=== PATIENT | male | born 1935 | race Caucasian/White ===

== ENCOUNTER 2020-03-30 14:46 | Outpatient (CLI) | payer MEDICARE, SELFPAY ==
--- NOTE | ~2020-03-30 | CT_ITS ---
EXAMINATION: CT brain wo con DATE: 03/30/2020 15:36 INDICATION: Headache. TECHNIQUE: Computed tomography (CT) of the head was performed without intravenous contrast. The dose- length product was 605.33 mGy-cm. The mA was adjusted according to patient size. Iterative reconstruc tion technique was employed. COMPARISON: CT dated 05/26/2018 FINDINGS: Generalized atrophy. There are scattered moderate periventricular and subcortical white mat ter changes, most likely related to small vessel ischemic disease (microangiopathy). No ventriculomeg alis or midline shift. Paranasal sinuses and mastoids are pneumatized. No depressed skull fractures. N o acute intracranial hemorrhage, infarction, mass or mass effect. Paranasal sinuses and mastoids are pneumatized. IMPRESSION: 1. No acute intracranial abnormality. 2: Chronic age-related findings. Reviewed, dictated and finalized at location A.
--- NOTE | ~2020-03-30 | XR_ITS ---
EXAMINATION: XR_CERV2-3V_CR DATE: 03/30/2020 15:27 INDICATION: Neck pain. TECHNIQUE: 5 views of cervical spine were obtained. COMPARISON: Cervical spine MRI 06/03/2010 FINDINGS: There is kyphosis of upper cervical spine. There is 2 mm retrolisthesis of C3 on C4. There are changes of anterior fusion procedure from C4 to C6 with healed interbody bone graft. There is sev erely decreased disc height at C3-C4 and C6-C7. There is multilevel facet joint osteoarthritis, sever e on the right at C2-C3 and bilaterally at C6-C7 and C7-T1. There is mild central canal stenosis at C 3-C4 and C6-C7. No prevertebral soft tissue swelling. IMPRESSION: 1. Severe cervical spondylosis. 2. Anterior fusion procedure from C4 to C6. Reviewed, dictated and finalized at location A.
== END 2020-03-30 14:47 | disposition home or self-care (01) ==
PROVIDERS: PCP Internal Medicine; Visit Provider Nurse Practitioner
DX: R51 Headache (principal); M54.2 Cervicalgia; M47.812 Spondylosis without myelopathy or radiculopathy, cervical region; Z98.1 Arthrodesis status
CPT/HCPCS: 70450; 72040

== ENCOUNTER 2020-06-27 15:06 | Outpatient (CLI) | payer MEDICARE, SELFPAY ==
--- NOTE | ~2020-06-27 | XR_ITS ---
XR chest 2V DATE: 06/27/2020 15:36 INDICATION: Chest pain TECHNIQUE: PA and lateral views COMPARISON: 05/26/2018 AP chest FINDINGS: There is bibasilar atelectasis. There is mild elevation of the right leaf of the diaphragm . Normal heart size. Aortic arch calcification and mild unfolding. No pulmonary vascular congestion or pleural effusion. Lumbar spine posterior fusion hardware. IMPRESSION: Bibasilar atelectasis Reviewed, dictated and finalized at location A. IMPRESSION: Bibasilar atelectasis
== END 2020-06-27 15:07 | disposition home or self-care (01) ==
PROVIDERS: PCP Internal Medicine; Visit Provider Nurse Practitioner
DX: R07.81 Pleurodynia (principal); R91.8 Other nonspecific abnormal finding of lung field
CPT/HCPCS: 71046

== ENCOUNTER 2020-11-06 17:03 | Outpatient (CLI) | payer MEDICARE, SELFPAY | END 2020-11-06 17:04 | disposition home or self-care (01) | LOC: ANHCOVIDVC 17:03 | PROVIDERS: PCP Internal Medicine | DX: Z23 Encounter for immunization (principal) | CPT/HCPCS: 0001A; 91300 ==

== ENCOUNTER 2020-11-27 17:01 | Outpatient (CLI) | payer MEDICARE, SELFPAY | END 2020-11-27 17:02 | disposition home or self-care (01) | LOC: ANHCOVIDVC 17:01 | PROVIDERS: PCP Internal Medicine | DX: Z23 Encounter for immunization (principal) | CPT/HCPCS: 0002A; 91300 ==

== ENCOUNTER 2021-09-03 13:30 | Outpatient (RCR) | payer MEDICARE, SELFPAY ==
--- NOTE | 2021-08-07 15:06 | PTOPEVAL ---
Thank you for referring Anival Jennings to [facility].? The patient is scheduled to be seen for therapy? 2 x/week for 8 weeks. Please review, sign, date and return this plan of care CASSY. I agree with and certify that the following plan of care is medically necessary. Referring Physician Date Attending Provider: Nay Ynag NP Diagnosis other musculoskeletal symptoms Onset chronic Additional Evaluation Detail Receives injections left knee due to pain and OA Tiffany brace right ankle due to ankle fusion Subjective Information He has a 3 wheeled rollator. Query Text:As Reported By Patient/ He reports of limitations with Family mobility due to knee and ankle pain. He spends of his day reading or watching TV. He has limited his walking due to pain and desire to walk. He reports limitations with transfers from all surfaces. He has had falls and near falls. He has had at least 1 fall a month. He is unable to get off the ground without assistance. Prior Level of Function Home Setting Home Type House Environmental Barriers Railing, Ascend Left,Stairs, Threshold Pain Assessment Right Ankle(s) Reported Pain Level 10 Pain Description Aching,Soreness Left Knee(s) Reported Pain Level 8 Pain Description Aching,Sharp Pain Frequency Chronic Lower Extremity Muscle Strength Testing General Lower Extremity Strength Gross Lower Extremity Strength left hip flex: 3/5, knee flex/ ext: 3/5 right hip flex: 4/5, knee flex /ext: 4/5 tested in seated Upper Extremity Muscle Strength Testing General Upper Extremity Strength Gross Upper Extremity Strength Comments left shoulder flex/abd: 3/5, rotation: 4/5 right shoulder flex/abd and rotation: 4-/5 yuni elbow and flex: 4/5 Posture Posture Standing Position Head/C-Spine Posture Forward Head Thoracic Spine Posture Increased Kyphosis Lumbar Spine Posture Flexed Shoulder Posture (L) Rounded,(R) Rounded Weight Distribution Weight Shifted Right,Decreased Wt.Bear on (L) Knee Posture (L)
--- NOTE | 2021-08-26 13:27 | PCPTNOTE ---
Patient called & cancelled scheduled appointment this date due to being exposed to covid.
--- NOTE | 2021-08-28 15:05 | PCPTNOTE ---
Patient called & cancelled scheduled appointment this date due to not feeling well.
--- NOTE | 2021-09-05 12:00 | PCPTNOTE ---
Patient called & cancelled scheduled appointment this date due to having a cough.
--- NOTE | 2021-09-17 13:40 | PCPTNOTE ---
Patient did not show up for scheduled appointment this date. Called pt and spoke with who states pt was DC from the hospital with home health services. Will DC chart at this time.
--- NOTE | 2021-09-17 13:41 | PCPTNOTE ---
Admitting Provider: Attending Provider: Nay Yang NP Patient:Anival Jennings Date of :1935 Discharge Summary Patient has not returned for any further treatments since 09/03/2021 due to recent hospital stay with discharge home with home health services. Therefore he will be discharged at this time. Patient?s initial visit was on 08/07/2021 10:30 and he had a total of 4 visits. The goals have been not met due to limited visits received. Thank you for referring this patient to [facility]. Please review, sign, date and return this discharge summary CASSY. I have been updated about the patient's current status and I agree with discharge from the above service at this time. Referring Physician Date
== END 2021-09-18 13:28 | disposition home health service (06) ==
LOC: ANHPT 13:30
PROVIDERS: PCP Internal Medicine; Visit Provider Nurse Practitioner
DX: R29.898 Other symptoms and signs involving the musculoskeletal system (principal)
CPT/HCPCS: 97110; 97112; 97162; 97530

== ENCOUNTER 2021-09-08 17:38 | Inpatient (IN) | payer MEDICARE, SELFPAY ==
[2021-09-08] VITALS (29 sets, daily range): BP systolic 109–171; BP diastolic 64–110; PULSE 60–99; RESP 15–23; TEMP 36.2; O2SAT 96
--- NOTE | ~2021-09-08 | CT_ITS ---
EXAMINATION: CT brain wo con INDICATION: Altered mental status COMPARISON: 03/30/2020 TECHNIQUE: Standard unenhanced head CT. The dose-length product (DLP) was 605.33 mGy-cm. The mA was a djusted according to patient size. Iterative reconstruction technique was employed. FINDINGS: There is no acute intraparenchymal hemorrhage. No evidence of mass lesion. No evidence of a cute infarction. There is moderate periventricular and subcortical hypodensity probably related to sm all vessel ischemic disease. There is moderate prominence of the sulci and ventricles related to cere bral atrophy. Intracranial calcified cerebral atherosclerosis is noted. There are no extra-axial zac ections. There is no mass effect or midline shift. Changes in the globes are likely from ocular lens surgery. There is mild mucosal thickening of the paranasal sinuses. IMPRESSION: 1. No acute intracranial abnormality. 2. Age related findings. Reviewed, dictated and finalized at location F. [employer]
--- NOTE | ~2021-09-08 | XR_ITS ---
EXAMINATION: XR chest 1V portable INDICATION: Nonproductive cough TECHNIQUE: Portable AP chest at 0828 hours COMPARISON: 06/27/2020 FINDINGS: There are minimal patchy opacities throughout the lungs. No pleural effusion or pneumothora x is identified. The cardiomediastinal silhouette is normal. There is moderate osteoarthritis of the shoulders. Chronic elevation of the right hemidiaphragm is noted. IMPRESSION: 1. Patchy bilateral airspace opacities, consistent with atelectasis versus pneumonia. Reviewed, dictated and finalized at location F. 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 Patchy bilateral airspace opacities, consistent with atelectasis versus pneu monia.
--- NOTE | 2021-09-08 19:37 | ECG_ITS ---
Measurements Intervals [place] Rate: 63 P: 29 WV: 175 QRS: 5 QRSD: 90 T: 22 QT: 405 QTc: 415 Interpretive Statements SINUS RHYTHM BASELINE ARTIFACT- I, II, III, AVR, AVL, AVF, V3 NORMAL ECG Electronically Signed On 09-08-2021 20:01:49 RN FIRST ASSISTANT by Artem Castillo D.O.
[2021-09-08 20:11] LABS: Basophils Absolute Auto 0.1 K/mm3 (0.0-0.1); Basophils Percent Auto 0.5 % (0.2-1.2); Eosinophils Absolute Auto 0.2 K/mm3 (0-0.3); Hematocrit 46.5 % (42.0-52.0); Hemoglobin 15.2 g/dL (14.0-18.0); Immature Granulocyte Absolute 0.06 K/mm3 (0.00-0.031); Immature Granulocyte Percent A 0.5 % (0-0.5); Lymphocytes Percent Auto 18.1 % (18.3-44.2); Mean Corpuscular HGB Conc 32.7 g/dl (32-36); Mean Corpuscular Volume 88.7 fl (80-100); Mean Platelet Volume 10.3 fl (7.4-10.4); Monocytes Percent Auto 8.8 % (2.6-8.5); Neutrophils Absolute Auto 7.8 K/mm3 (1.3-6.7); Neutrophils Percent Auto 70.1 % (45.5-73.1); Platelet Count Result 163 k/mm3 (150-375); Red Blood Count 5.24 M/mm3 (4.6-6.20); Red Cell Distribution Width 13.4 % (11.5-14.5); White Blood Count 11.1 K/mm3 (4.5-10.0)
[2021-09-08 20:21] LABS: INR 1.1; Partial Thromboplastin Time 40.3 SECONDS (22.3-36.8); Prothrombin Time 14.5 Seconds (11.1-14.7)
[2021-09-08 20:22] LABS: Alanine Aminotransferase 32 U/L (4-50); Albumin Level 4.9 g/dL (3.5-5.1); Alkaline Phosphatase 74 U/L (38-126); Anion Gap 13 mmol/L (8-16); Aspartate Amino Transferase 30 U/L (17-59); Bilirubin,Total 0.7 mg/dL (0.2-1.3); Blood Urea Nitrogen 20 mg/dL (9-20); Calcium 9.2 mg/dL (8.4-10.2); Carbon Dioxide 24 mmol/L (22-30); Chloride 98 mmol/L (98-107); Estimated CRCL calculation 56 ml/min; Estimated Glomerular Filt Rate > 60; Glucose 122 mg/dL (65-110); Potassium 4.7 mmol/L (3.4-5.0); Sodium 135 mmol/L (137-145)
[2021-09-08] MEDS: SODIUM CHLORIDE 0.9% IV 1,000 ML 999 ML IV CONT (20:41)
[2021-09-08 21:05] LABS: Magnesium 2.5 mg/dL (1.6-2.3)
[2021-09-08 21:05] LABS: Lactic Acid Reflex 0.9 mmol/L (0.7-2.1)
[2021-09-08 21:18] LABS: Troponin I < 0.012 ng/mL (0.000-0.034)
[2021-09-08 21:36] LABS: SARS-CoV-2 RNA PCR Negative
--- NOTE | 2021-09-08 22:11 | ED.GENADULT ---
HPI - General Adult General Chief complaint: Altered Mental Status Stated complaint: AMS x3 days Time Seen by Provider: 09/08/21 19:57 History of Present Illness HPI narrative: Patient 85-year-old gentleman who presents the emergency department with chief complaint of generalized malaise confusion cough. Per the family they have noticed over the last several days he has been coughing has been less responsive and sleeping more. The patient has also been slightly confused at times usually this is after he just wakes up where he does not quite remember what time it is. The family reports currently he is alert and oriented just very slow to respond at times. The patient's family reports that he normally ambulates using a cane/walker and has been able to walk around at home. Related Data Home Medications Medication Instructions Recorded Confirmed acetaminophen 500 mg tablet 500 mg PO BID tablet 09/29/19 08/20/21 albuterol sulfate 90 mcg/actuation 2 puff INHALATION Q4-6H PRN gm 09/29/19 08/20/21 aerosol inhaler ascorbate calcium (vitamin C) 500 500 mg PO DAILY 09/29/19 08/20/21 mg tablet budesonide-formoterol HFA 160 2 puff INHALATION Q12H 09/29/19 08/20/21 mcg-4.5 mcg/actuation aerosol inhaler cholecalciferol (vitamin D3) 25 3,000 unit PO DAILY cap 09/29/19 08/20/21 mcg (1,000 unit) capsule clopidogrel 75 mg tablet 75 mg PO DAILY 09/29/19 08/20/21 mecobalamin (vitamin B12) 1,000 1,000 mcg SUBLINGUAL DAILY 09/29/19 08/20/21 mcg disintegrating tablet,sublingual metoprolol succinate 25 mg 25 mg PO DAILY 09/29/19 08/20/21 tablet,extended release 24 hr multivitamin 1 tablet PO DAILY 09/29/19 08/20/21 nitroglycerin 0.4 mg sublingual 0.4 mg SUBLINGUAL Q5M PRN 09/29/19 08/20/21 tablet omega-3 acid ethyl esters 1 gram 2 cap PO BID cap 09/29/19 08/20/21 capsule rosuvastatin 40 mg tablet 40 mg PO DAILY 09/29/19 08/20/21 tiotropium bromide 18 mcg capsule 1 cap INHALATION DAILY 09/29/19 08/20/21 with inhalation device vit C 250 mg-vit E 90 mg-zinc 40 1 tablet PO BID 09/29/19 08/20/21 mg-copper 1 yw-ezxssx-zpanro capsule ipratropium 0.5 mg-albuterol 3 mg 3 ml INHALATION .QD PRN ml 07/09/21 08/20/21 (2.5 mg base)/3 mL nebulization soln Allergies Allergy/AdvReac Type Severity Reaction Status Date / Time pneumococcal vaccine Allergy Unknown Hypersensit Verified 08/20/21 14:51 ivity Sulfa (Sulfonamide Allergy Unknown Unknown Verified 08/20/21 14:51 Antibiotics) Review of Systems Review of Systems: A 10 system review of systems was completed on the patient and is negative except for what is stated in the HPI. Nursing and ancillary documentation was reviewed. [facility] Past Medical History Medical History Anemia, unspecified COPD (chronic obstructive pulmonary disease) Deficient knowledge of leg surgery 2 stents in lt leg HLD (hyperlipidemia) HTN (hypertension) Hypogonadism in male Left knee DJD Pain in left knee Primary osteoarthritis of left knee Primary osteoarthritis, right ankle and foot Prostate cancer Right knee DJD Weakness of left lower extremity Surgical History Surgical History H/O heart artery stent H/O prostatectomy History of back surgery History of cystoscopy History of neck surgery Status post implantation of artificial urinary sphincter removed, washout and urethral repair Family History Family History Father Cerebrovascular accident Heart attack Alcoholism Hypertension Depression Heart disease Mother Aneurysm Other Family history of arthritis Social History Social History Social History: caffeine-coffee daily Smoking status: Never smoker Smoking end date: 08/31/02 Alcohol intake: ne
--- NOTE | 2021-09-08 22:36 | PM.IMHP ---
H&P: HPI History of Present Illness Date/Time: 09/08/21 22:36 Chief Complaint: Fatigue Narrative: This is an 85-year-old male with past medical history significant for COPD she should emphysema coronary artery disease, dyslipidemia. Patient presented to the emergency room due to generalized malaise, body aches and pains, dry persistent cough, shortness of breath, fevers, chills, rigors, chest congestion, poor appetite, according to who is at bedside patient has been staying most of the day in bed, denies any nausea ,vomiting, abdominal pain, diarrhea. Preliminary workup was significant for chest x-ray with lung infiltrates, WBC 11,000, patient tested negative for COVID-19 and his a fully vaccinated as well. Patient has been admitted for further evaluation, management and treatment. Review of Systems Review of Systems: Generalized malaise, chest congestion, persistent dry cough, shortness of breath, poor appetite, fatigue, chills, fevers, rigors. Constitutional: Constitutional: Reports chills, Reports fatigue, Reports fever(s), Reports lethargy, Reports malaise, Denies night sweats and Reports poor appetite Eyes: Eyes: Denies change in vision ENT: Denies dysphagia, Denies vertigo, Denies dizziness, Denies nasal congestion, Denies nasal discharge and Denies odynophagia Cardiovascular: Cardiovascular: Denies chest pain, Denies irregular heart rhythm, Denies lightheadedness, Denies radiating jaw, neck or arm pain, Denies palpitations, Denies dyspnea on exertion and Denies paroxysmal nocturnal dyspnea Respiratory: Respiratory: Reports chest congestion, Reports cough, Denies excessive phlegm production, Reports dyspnea and Denies wheezing Gastrointestinal: Gastrointestinal: Denies abdominal pain, Denies dyspepsia, Denies heartburn and Denies diarrhea Genitourinary: Genitourinary: Denies dysuria and Denies flank pain Musculoskeletal: Musculoskeletal: Reports myalgias Integumentary/Breasts: Skin/Breast: Denies rash Neurologic: Denies focal weakness and Denies Sensory deficit (Neuro) Psychiatric: Psychiatric: Reports no additional psychiatric complaints and Reports as per HPI Endocrine: Endocrine: Denies cold intolerance, Denies heat intolerance, Denies polyphagia, Denies polydipsia and Denies palpitations Hematologic/Lymphatic: Hematologic/Lymphatic: Reports no additional hematologic/lymphatic complaints and Reports as per HPI Allergic/Immunologic: Allergic/Immunologic: Reports no additional allergic/immunologic complaints and Reports as per HPI PMFSH Past Medical History Medical History (Updated 09/09/21 @ 04:28 by Blank Villareal MD) Anemia, unspecified COPD (chronic obstructive pulmonary disease) Deficient knowledge of leg surgery 2 stents in lt leg HLD (hyperlipidemia) HTN (hypertension) Hypogonadism in male Left knee DJD Pain in left knee Primary osteoarthritis of left knee Primary osteoarthritis, right ankle and foot Prostate cancer Right knee DJD Weakness of left lower extremity Surgical History Surgical History H/O heart artery stent H/O prostatectomy History of back surgery History of cystoscopy History of neck surgery Status post implantation of artificial urinary sphincter removed, washout and urethral repair Family History Family History Father Cerebrovascular accident Heart attack Alcoholism Hypertension Depression Heart disease Mother Aneurysm Other Family history of arthritis Social History Social History Social History: caffeine-coffee daily Smoking status: Never smoker Alcohol intake: never Substance use: never Substance use type: does not use Spiritual care concerns: No Meds Home Medications and Allergies Home Medications Medication Instructions Recorded Confirmed Ty
--- NOTE | 2021-09-08 23:16 | PC.NURSE ---
Patient has condom catheter in place, unsuccessful with straight cath. No urine specimen at this time.
[2021-09-09] VITALS (15 sets, daily range): BP systolic 111–148; BP diastolic 66–83; PULSE 61–74; RESP 16–18; TEMP 36.4–37.1; O2SAT 93–99; BMI 27.6
--- NOTE | 2021-09-09 00:34 | ADMGEN ---
This patient, Anival Jennings, was admitted to Medical Room 342-01. Patient/family oriented to hospital policies and general routines including ID bracelet, bed and alarms, visiting hours, pain management, procedures, bathroom and other care routines, personal items, smoking policy, room service/diet, and visiting hours. Information on how to activate the Rapid Response Team has been discussed. Patient/Family are encouraged to report perceived risks to care and to ask questions if they do not understand what they are told or what they should do.
[2021-09-09] MEDS: SODIUM CHLORIDE 0.9% IV 1,000 ML 125 ML IV CONT ×2 (00:46→08:51)
[2021-09-09 03:50] LABS: Troponin I 0.013 ng/mL (0.000-0.034)
[2021-09-09] MEDS: FLUTICASONE/SALMETEROL 115-21 MCG INHALER 1 PUFF 2 PUFF INHALATION ×2 (08:20→20:54)
[2021-09-09] MEDS: IPRATROPIUM BR 0.02% INH SOLN 0.5 MG/2.5 ML VIAL INHALATION ×3 (08:20→20:53)
[2021-09-09] MEDS: ALBUTEROL SULFATE NEB 2.5 MG/0.5 ML INH 5 MG INHALATION ×3 (08:20→20:53)
[2021-09-09] MEDS: CLOPIDOGREL BISULFATE 75 MG TABLET PO (08:53)
[2021-09-09] MEDS: ASCORBIC ACID 500 MG TABLET PO (08:54)
[2021-09-09] MEDS: CYANOCOBALAMIN 1,000 MCG TABLET 1000 MCG PO (08:54)
[2021-09-09] MEDS: OPTI-GEN TAB 1 TABLET PO ×2 (08:54→17:23)
[2021-09-09] MEDS: CHOLECALCIFEROL 1,000 UNITS TABLET 3000 UNITS PO (08:54)
[2021-09-09] MEDS: OMEGA 3 POLYUNSAT FATTY ACIDS 1 GM CAP PO ×2 (08:54→17:24)
[2021-09-09] MEDS: MULTIVITAMINS THERAPEUTIC TAB (*BKC) 1 TABLET PO (08:54)
[2021-09-09] MEDS: ACETAMINOPHEN 500 MG TABLET PO ×2 (08:54→20:02)
[2021-09-09] MEDS: SERTRALINE HCL 50 MG TABLET 100 MG PO (08:54)
[2021-09-09] MEDS: ROSUVASTATIN 10 MG TABLET 40 MG PO (08:55)
[2021-09-09] MEDS: HEPARIN SODIUM 5,000 UNITS/ML VIAL 5000 UNITS SUB-Q ×2 (08:55→20:01)
[2021-09-09] MEDS: UMECLIDINIUM BROMIDE 62.5 MCG ELLIPTA 1 PUFF INHALATION (11:03)
[2021-09-09] MEDS: METOPROLOL SUCCINATE EXT REL 25 MG TABCR PO (11:04)
--- NOTE | 2021-09-09 12:47 | PM.IMPN ---
Progress Note: A&P Assessment and Plan (1) Pneumonia: Qualifiers: Laterality: unspecified laterality Lung location: unspecified part of lung Pneumonia type: due to unspecified organism Qualified Code(s): J18.9 - Pneumonia, unspecified organism Code(s): J18.9 - Pneumonia, unspecified organism Status: Acute Assessment and Plan: Patient presented for confusion. States he has had a cough for the last 1 week. Chest x-ray concerning for patchy bilateral airspace opacities, consistent with atelectasis versus pneumonia. Slight leukocytosis at 11,000. Otherwise patient is resting comfortably on room air. Was admitted for confusion and pneumonia treatment with IV antibiotics. COVID PCR was negative. Currently patient is doing well, A&O x4. Continue IV antibiotics with Rocephin and azithromycin #1. Blood cultures have been sent and pending Continue with DuoNebs ordered by ER Will recheck labs in the morning and could potentially be discharged if he is still doing well and labs improving. Continue monitoring. (2) Cough: Code(s): R05 - Cough Status: Acute Assessment and Plan: See above. (3) Generalized weakness: Code(s): R53.1 - Weakness Status: Acute Assessment and Plan: Most likely due to pneumonia. PT/OT ordered. (4) COPD (chronic obstructive pulmonary disease): Code(s): J44.9 - Chronic obstructive pulmonary disease, unspecified Status: Acute Assessment and Plan: Lungs are clear with no wheezing. Continue breathing treatment at home meds. Time Spent With Patient Time with patient: 25 - 35 minutes Subjective Date/time seen: 09/09/21 12:47 Interval history: Date of service 09/09/2021: Patient states he is feeling better today. States he has had a cough for the last 1 week, associated chest congestion and denies any productive cough. Denies any shortness of breath at rest or with exertion. Patient has chronic urinary incontinence after after having any urology procedure. Denies any dark urine, odor to urine, or dysuria. Denies fevers, chills, chest pain, nausea, vomiting, abdominal pain, leg swelling, calf pain, or any other symptoms at this time. Review of Systems Review of Systems: All systems reviewed & are unremarkable except as noted in HPI and below Exam Narrative: General: 85-year-old man sitting up in bed watching TV. Appears comfortable. In no acute distress. Skin: No jaundice or cyanosis. Good skin turgor. Neck: Full range of motion. Supple. Respiratory: Lungs are clear to auscultation bilaterally. No wheezing, rales or rhonchi auscultated. No bony chest wall tenderness. Cardiovascular: The heart has a regular rate and rhythm without murmur. Lower extremities: No lower extremity edema. Distal pulses are easily palpated. No calf tenderness to palpation. Gastrointestinal: The abdomen is soft, nontender and nondistended with active bowel sounds. Psychiatric: Lucid and oriented. Memory intact. Neurologic:A&O x4. No focal deficits. Speech is clear. No facial drooping. Objective Data Vital Signs Vital Signs: Vital Signs - 24 hr 09/08/21 17:39 09/08/21 19:40 09/08/21 19:41 Temperature 97.2 F L Pulse Rate 76 71 63 Respiratory Rate 20 15 20 Blood Pressure 120/64 150/76 H Pulse Oximetry 96 09/08/21 19:45 09/08/21 19:46 09/08/21 20:00 Temperature Pulse Rate 64 63 61 Respiratory Rate 19 18 20 Blood Pressure 141/87 H Pulse Oximetry 09/08/21 20:01 09/08/21 20:04 09/08/21 20:15 Temperature Pulse Rate 62 63 Respiratory Rate 17 16 Blood Pressure 134/73 Pulse Oximetry 96 09/08/21 20:16 09/08/21 20:30 09/08/21 20:31 Temperature Pulse Rate 63 64 62 Respiratory Rate 19 16 18
[2021-09-10] VITALS (12 sets, daily range): BP systolic 110–154; BP diastolic 58–72; PULSE 64–96; RESP 16–19; TEMP 36.5–37.2; O2SAT 94–99
[2021-09-10 05:58] LABS: Hemoglobin 13.7 g/dL (14.0-18.0); Mean Corpuscular HGB Conc 32.6 g/dl (32-36); Mean Corpuscular Hemoglobin 28.7 pg (26-34); Mean Corpuscular Volume 88.1 fl (80-100); Mean Platelet Volume 10.1 fl (7.4-10.4); Platelet Count Result 147 k/mm3 (150-375); Red Blood Count 4.77 M/mm3 (4.6-6.20); Red Cell Distribution Width 13.2 % (11.5-14.5); White Blood Count 6.4 K/mm3 (4.5-10.0)
[2021-09-10 06:11] LABS: Anion Gap 12 mmol/L (8-16); Blood Urea Nitrogen 14 mg/dL (9-20); Calcium 9.3 mg/dL (8.4-10.2); Carbon Dioxide 26 mmol/L (22-30); Chloride 99 mmol/L (98-107); Estimated CRCL calculation 56 ml/min; Estimated Glomerular Filt Rate > 60; Glucose 139 mg/dL (65-110); Potassium 4.5 mmol/L (3.4-5.0); Sodium 137 mmol/L (137-145)
[2021-09-10] MEDS: ALBUTEROL SULFATE NEB 2.5 MG/0.5 ML INH 5 MG INHALATION ×3 (07:52→20:09)
[2021-09-10] MEDS: IPRATROPIUM BR 0.02% INH SOLN 0.5 MG/2.5 ML VIAL INHALATION ×3 (07:55→20:09)
[2021-09-10] MEDS: FLUTICASONE/SALMETEROL 115-21 MCG INHALER 1 PUFF 2 PUFF INHALATION (07:56)
[2021-09-10] MEDS: UMECLIDINIUM BROMIDE 62.5 MCG ELLIPTA 1 PUFF INHALATION (07:56)
[2021-09-10] MEDS: CHOLECALCIFEROL 1,000 UNITS TABLET 3000 UNITS PO (08:38)
[2021-09-10] MEDS: ASCORBIC ACID 500 MG TABLET PO (08:38)
[2021-09-10] MEDS: OPTI-GEN TAB 1 TABLET PO ×2 (08:39→16:50)
[2021-09-10] MEDS: SERTRALINE HCL 50 MG TABLET 100 MG PO (08:39)
[2021-09-10] MEDS: CLOPIDOGREL BISULFATE 75 MG TABLET PO (08:39)
[2021-09-10] MEDS: MULTIVITAMINS THERAPEUTIC TAB (*BKC) 1 TABLET PO (08:39)
[2021-09-10] MEDS: ACETAMINOPHEN 500 MG TABLET PO ×2 (08:39→20:32)
[2021-09-10] MEDS: CYANOCOBALAMIN 1,000 MCG TABLET 1000 MCG PO (08:39)
[2021-09-10] MEDS: METOPROLOL SUCCINATE EXT REL 25 MG TABCR PO (08:39)
[2021-09-10] MEDS: OMEGA 3 POLYUNSAT FATTY ACIDS 1 GM CAP PO ×2 (08:39→16:50)
[2021-09-10] MEDS: HEPARIN SODIUM 5,000 UNITS/ML VIAL 5000 UNITS SUB-Q ×2 (08:40→20:32)
[2021-09-10] MEDS: ROSUVASTATIN 10 MG TABLET 40 MG PO (08:40)
--- NOTE | 2021-09-10 15:38 | PM.IMPN ---
Progress Note: A&P Assessment and Plan (1) Pneumonia: Qualifiers: Laterality: unspecified laterality Lung location: unspecified part of lung Pneumonia type: due to unspecified organism Qualified Code(s): J18.9 - Pneumonia, unspecified organism Code(s): J18.9 - Pneumonia, unspecified organism Status: Acute Assessment and Plan: Patient presented for confusion. States he has had a cough for the last 1 week. Chest x-ray concerning for patchy bilateral airspace opacities, consistent with atelectasis versus pneumonia. Slight leukocytosis at 11,000. Otherwise patient is resting comfortably on room air. Was admitted for confusion and pneumonia treatment with IV antibiotics. COVID PCR was negative. Currently patient is doing well, A&O x4. Continue with DuoNebs. Oxygen 97% on RA. Continue IV antibiotics with Rocephin and azithromycin #2. Blood cultures prelim report w/ gram positive cocci, final report pending. (2) Cough: Code(s): R05 - Cough Status: Acute Assessment and Plan: See above. (3) Generalized weakness: Code(s): R53.1 - Weakness Status: Acute Assessment and Plan: Most likely due to pneumonia. PT/OT ordered. (4) COPD (chronic obstructive pulmonary disease): Code(s): J44.9 - Chronic obstructive pulmonary disease, unspecified Status: Acute Assessment and Plan: Lungs are clear with no wheezing. Continue breathing treatment at home meds. Subjective Date/time seen: 09/10/21 15:38 Interval history: Patient states he is feeling better today. Still has dry cough. Denies confusion, is A/Ox3, however loses his train of thought frequently during conversation. Review of Systems Review of Systems: General: Denies fevers Eyes: Denies vision changes ENT: Denies nasal congestion or sore throat Respiratory: + cough, denies shortness of breath Cardiovascular: Denies chest pain or lower extremity edema Gastrointestinal: Denies abdominal pain, vomiting, or diarrhea Genitourinary: Denies dysuria Musculoskeletal: Denies back pain Neurological: Denies headache or motor weakness Integumentary: Denies rash Exam Narrative: General: No acute distress, non toxic appearing, elderly Eyes: PERRL, no scleral icterus HEENT: NCAT, external ears normal, MMM Respiratory: No respiratory distress, Lungs CTA bilaterally, no wheezing Cardiovascular: RRR, no murmur Abdominal: Soft, nontender, non distended, no rebound or guarding Musculoskeletal: Moves all 4 extremities, no edema Neurological: A/Ox3, speech normal, no facial asymmetry Skin: Warm, dry, no rashes, +pallor Psychiatric: Normal affect, normal mood Objective Data Vital Signs Vital Signs: Vital Signs - 24 hr 09/09/21 16:27 09/09/21 16:34 09/09/21 20:00 Temperature Pulse Rate 64 65 70 Respiratory Rate 18 18 18 Blood Pressure Pulse Oximetry 99 09/09/21 20:56 09/09/21 20:57 09/09/21 21:08 Temperature Pulse Rate 66 67 Respiratory Rate 16 16 Blood Pressure Pulse Oximetry 97 09/09/21 21:22 09/10/21 06:00 09/10/21 07:45 Temperature 98.7 F 99 F Pulse Rate 70 64 68 Respiratory Rate 18 16 16 Blood Pressure 148/70 H 154/64 H Pulse Oximetry 99 99 09/10/21 07:56 09/10/21 08:39 09/10/21 10:09 Temperature 98.4 F Pulse Rate 70 82 Respiratory Rate 16 Blood Pressure Pulse Oximetry 97 09/10/21 13:35 09/10/21 13:47 09/10/21 14:21 Temperature 97.8 F Pulse Rate 88 89 86 Respiratory Rate 16 16 16 Blood Pressure 115/72 Pulse Oximetry 94 Intake/Output Intake/Output: Intake & Output 01/04/2109/08/21 09/09/21 09/10/21 23:59 23:59 23:59 23:59 Intake Total 1050 2280 480 Balance 1050 2280 480 Meds/Results Medications:
[2021-09-11] VITALS (12 sets, daily range): BP systolic 112–145; BP diastolic 64–77; PULSE 74–96; RESP 16–18; TEMP 36.1–36.8; O2SAT 93–97
[2021-09-11] MEDS: ALBUTEROL SULFATE NEB 2.5 MG/0.5 ML INH 5 MG INHALATION ×4 (02:37→19:57)
[2021-09-11] MEDS: IPRATROPIUM BR 0.02% INH SOLN 0.5 MG/2.5 ML VIAL INHALATION ×4 (02:38→19:57)
[2021-09-11 07:39] LABS: Basophils Absolute Auto 0.1 K/mm3 (0.0-0.1); Basophils Percent Auto 0.7 % (0.2-1.2); Eosinophils Absolute Auto 0.3 K/mm3 (0-0.3); Eosinophils Percent Auto 4.5 % (0-4.4); Hemoglobin 13.4 g/dL (14.0-18.0); Immature Granulocyte Absolute 0.02 K/mm3 (0.00-0.031); Immature Granulocyte Percent A 0.3 % (0-0.5); Lymphocytes Absolute Auto 1.65 K/mm3 (0.9-3.2); Lymphocytes Percent Auto 23.9 % (18.3-44.2); Mean Corpuscular HGB Conc 32.7 g/dl (32-36); Mean Corpuscular Hemoglobin 28.5 pg (26-34); Mean Corpuscular Volume 87.2 fl (80-100); Mean Platelet Volume 10.4 fl (7.4-10.4); Monocytes Absolute Auto 0.5 K/mm3 (0.1-0.6); Monocytes Percent Auto 7.2 % (2.6-8.5); Neutrophils Absolute Auto 4.4 K/mm3 (1.3-6.7); Neutrophils Percent Auto 63.4 % (45.5-73.1); Platelet Count Result 166 k/mm3 (150-375); Red Cell Distribution Width 12.9 % (11.5-14.5); White Blood Count 6.9 K/mm3 (4.5-10.0)
[2021-09-11 08:00] LABS: Alanine Aminotransferase 27 U/L (4-50); Albumin Level 4.1 g/dL (3.5-5.1); Alkaline Phosphatase 73 U/L (38-126); Anion Gap 13 mmol/L (8-16); Aspartate Amino Transferase 30 U/L (17-59); Bilirubin,Total 0.4 mg/dL (0.2-1.3); Blood Urea Nitrogen 16 mg/dL (9-20); Calcium 8.9 mg/dL (8.4-10.2); Carbon Dioxide 25 mmol/L (22-30); Chloride 98 mmol/L (98-107); Estimated CRCL calculation 56 ml/min; Estimated Glomerular Filt Rate > 60; Glucose 138 mg/dL (65-110); Potassium 3.9 mmol/L (3.4-5.0); Sodium 136 mmol/L (137-145)
[2021-09-11] MEDS: UMECLIDINIUM BROMIDE 62.5 MCG ELLIPTA 1 PUFF INHALATION (08:00)
[2021-09-11] MEDS: FLUTICASONE/SALMETEROL 115-21 MCG INHALER 1 PUFF 2 PUFF INHALATION ×2 (08:00→19:57)
[2021-09-11] MEDS: SERTRALINE HCL 50 MG TABLET 100 MG PO (08:53)
[2021-09-11] MEDS: OPTI-GEN TAB 1 TABLET PO ×2 (08:53→17:18)
[2021-09-11] MEDS: CLOPIDOGREL BISULFATE 75 MG TABLET PO (08:53)
[2021-09-11] MEDS: CYANOCOBALAMIN 1,000 MCG TABLET 1000 MCG PO (08:53)
[2021-09-11] MEDS: CHOLECALCIFEROL 1,000 UNITS TABLET 3000 UNITS PO (08:53)
[2021-09-11] MEDS: OMEGA 3 POLYUNSAT FATTY ACIDS 1 GM CAP PO ×2 (08:53→17:18)
[2021-09-11] MEDS: ROSUVASTATIN 10 MG TABLET 40 MG PO (08:53)
[2021-09-11] MEDS: METOPROLOL SUCCINATE EXT REL 25 MG TABCR PO (08:54)
[2021-09-11] MEDS: MULTIVITAMINS THERAPEUTIC TAB (*BKC) 1 TABLET PO (08:54)
[2021-09-11] MEDS: ASCORBIC ACID 500 MG TABLET PO (08:54)
[2021-09-11] MEDS: HEPARIN SODIUM 5,000 UNITS/ML VIAL 5000 UNITS SUB-Q ×2 (08:54→20:33)
[2021-09-11] MEDS: ACETAMINOPHEN 500 MG TABLET PO ×2 (08:58→20:33)
--- NOTE | 2021-09-11 16:26 | PM.IMPN ---
Progress Note: A&P Assessment and Plan (1) Pneumonia: Qualifiers: Laterality: unspecified laterality Lung location: unspecified part of lung Pneumonia type: due to unspecified organism Qualified Code(s): J18.9 - Pneumonia, unspecified organism Code(s): J18.9 - Pneumonia, unspecified organism Status: Acute Assessment and Plan: Patient presented for confusion. States he has had a cough for the last 1 week. Chest x-ray concerning for patchy bilateral airspace opacities, consistent with atelectasis versus pneumonia. Slight leukocytosis at 11,000. Otherwise patient is resting comfortably on room air. Was admitted for confusion and pneumonia treatment with IV antibiotics. COVID PCR was negative. Currently patient is doing well, A&O x4. Continue with DuoNebs. Oxygen 97% on RA. Continue IV antibiotics with Rocephin and azithromycin #3. Blood cultures prelim report w/ gram positive cocci, final report pending. (2) Cough: Code(s): R05 - Cough Status: Acute Assessment and Plan: See above. (3) Generalized weakness: Code(s): R53.1 - Weakness Status: Acute Assessment and Plan: Most likely due to pneumonia. PT/OT ordered. (4) COPD (chronic obstructive pulmonary disease): Code(s): J44.9 - Chronic obstructive pulmonary disease, unspecified Status: Acute Assessment and Plan: Lungs are clear with no wheezing. Continue breathing treatment at home meds. Subjective Date/time seen: 09/11/21 16:26 Interval history: Patient states he is feeling better today. Still has dry cough. Denies confusion, is A/Ox3, however loses his train of thought at times during conversation. Review of Systems Review of Systems: General: Denies fevers Eyes: Denies vision changes ENT: Denies nasal congestion or sore throat Respiratory: + cough, denies shortness of breath Cardiovascular: Denies chest pain or lower extremity edema Gastrointestinal: Denies abdominal pain, vomiting, or diarrhea Genitourinary: Denies dysuria Musculoskeletal: Denies back pain Neurological: Denies headache or motor weakness Integumentary: Denies rash Exam Narrative: General: No acute distress, non toxic appearing, elderly Eyes: PERRL, no scleral icterus HEENT: NCAT, external ears normal, MMM Respiratory: No respiratory distress, Lungs CTA bilaterally, no wheezing Cardiovascular: RRR, no murmur Abdominal: Soft, nontender, non distended, no rebound or guarding Musculoskeletal: Moves all 4 extremities, no edema Neurological: A/Ox3, speech normal, no facial asymmetry Skin: Warm, dry, no rashes, +pallor Psychiatric: Normal affect, normal mood Objective Data Vital Signs Vital Signs: Vital Signs - 24 hr 09/10/21 20:00 09/10/21 20:09 09/10/21 20:17 Temperature Pulse Rate 96 84 89 Respiratory Rate 17 17 19 Blood Pressure Pulse Oximetry 96 09/10/21 20:48 09/11/21 02:38 09/11/21 02:45 Temperature 97.7 F Pulse Rate 96 87 92 Respiratory Rate 17 17 18 Blood Pressure 110/58 L Pulse Oximetry 96 09/11/21 04:31 09/11/21 08:00 09/11/21 08:54 Temperature 97.3 F L Pulse Rate 96 84 86 Respiratory Rate 16 18 Blood Pressure 125/69 Pulse Oximetry 93 09/11/21 14:00 09/11/21 14:40 09/11/21 14:50 Temperature 98.2 F Pulse Rate 96 85 80 Respiratory Rate 18 18 18 Blood Pressure 112/64 Pulse Oximetry 97 Intake/Output Intake/Output: Intake & Output 09/08/21 09/09/21 09/10/21 09/11/21 23:59 23:59 23:59 23:59 Intake Total 1050 2280 1720 290 Balance 1050 2280 1720 290 Meds/Results Medications: Active Medications Generic Name Dose Route Start Last Admin Trade Name Freq PRN Reason Stop Dose Admin Acetaminophen 650 mg 09/08/21 22:45
[2021-09-12] VITALS (12 sets, daily range): BP systolic 133–149; BP diastolic 62–80; PULSE 62–73; RESP 14–20; TEMP 36.4–36.9; O2SAT 92–94
[2021-09-12] MEDS: IPRATROPIUM BR 0.02% INH SOLN 0.5 MG/2.5 ML VIAL INHALATION ×4 (01:51→20:16)
[2021-09-12] MEDS: ALBUTEROL SULFATE NEB 2.5 MG/0.5 ML INH 5 MG INHALATION ×4 (01:51→20:16)
[2021-09-12 06:29] LABS: Basophils Percent Auto 0.5 % (0.2-1.2); Eosinophils Absolute Auto 0.3 K/mm3 (0-0.3); Eosinophils Percent Auto 5.2 % (0-4.4); Hematocrit 40.4 % (42.0-52.0); Hemoglobin 13.1 g/dL (14.0-18.0); Immature Granulocyte Absolute 0.02 K/mm3 (0.00-0.031); Immature Granulocyte Percent A 0.3 % (0-0.5); Lymphocytes Absolute Auto 1.41 K/mm3 (0.9-3.2); Lymphocytes Percent Auto 23.5 % (18.3-44.2); Mean Corpuscular HGB Conc 32.4 g/dl (32-36); Mean Corpuscular Hemoglobin 28.3 pg (26-34); Mean Corpuscular Volume 87.3 fl (80-100); Mean Platelet Volume 9.9 fl (7.4-10.4); Monocytes Absolute Auto 0.4 K/mm3 (0.1-0.6); Monocytes Percent Auto 6.8 % (2.6-8.5); Neutrophils Absolute Auto 3.8 K/mm3 (1.3-6.7); Neutrophils Percent Auto 63.7 % (45.5-73.1); Platelet Count Result 169 k/mm3 (150-375); Red Blood Count 4.63 M/mm3 (4.6-6.20); Red Cell Distribution Width 13.2 % (11.5-14.5)
[2021-09-12 06:43] LABS: Anion Gap 10 mmol/L (8-16); Blood Urea Nitrogen 14 mg/dL (9-20); Calcium 9.2 mg/dL (8.4-10.2); Carbon Dioxide 26 mmol/L (22-30); Chloride 99 mmol/L (98-107); Estimated CRCL calculation 63 ml/min; Estimated Glomerular Filt Rate > 60; Glucose 128 mg/dL (65-110); Potassium 4.3 mmol/L (3.4-5.0); Sodium 135 mmol/L (137-145)
[2021-09-12] MEDS: UMECLIDINIUM BROMIDE 62.5 MCG ELLIPTA 1 PUFF INHALATION (09:23)
[2021-09-12] MEDS: FLUTICASONE/SALMETEROL 115-21 MCG INHALER 1 PUFF 2 PUFF INHALATION ×2 (09:23→20:16)
[2021-09-12] MEDS: OPTI-GEN TAB 1 TABLET PO ×2 (09:55→17:31)
[2021-09-12] MEDS: CLOPIDOGREL BISULFATE 75 MG TABLET PO (09:55)
[2021-09-12] MEDS: ROSUVASTATIN 10 MG TABLET 40 MG PO (09:55)
[2021-09-12] MEDS: ACETAMINOPHEN 500 MG TABLET PO ×2 (09:55→20:43)
[2021-09-12] MEDS: CHOLECALCIFEROL 1,000 UNITS TABLET 3000 UNITS PO (09:55)
[2021-09-12] MEDS: CYANOCOBALAMIN 1,000 MCG TABLET 1000 MCG PO (09:56)
[2021-09-12] MEDS: SERTRALINE HCL 50 MG TABLET 100 MG PO (09:56)
[2021-09-12] MEDS: OMEGA 3 POLYUNSAT FATTY ACIDS 1 GM CAP PO ×2 (09:56→17:31)
[2021-09-12] MEDS: METOPROLOL SUCCINATE EXT REL 25 MG TABCR PO (09:56)
[2021-09-12] MEDS: MULTIVITAMINS THERAPEUTIC TAB (*BKC) 1 TABLET PO (09:56)
[2021-09-12] MEDS: HEPARIN SODIUM 5,000 UNITS/ML VIAL 5000 UNITS SUB-Q ×2 (09:56→20:43)
[2021-09-12] MEDS: ASCORBIC ACID 500 MG TABLET PO (09:56)
--- NOTE | 2021-09-12 14:05 | PM.IMPN ---
Progress Note: A&P Assessment and Plan (1) Pneumonia: Qualifiers: Laterality: unspecified laterality Lung location: unspecified part of lung Pneumonia type: due to unspecified organism Qualified Code(s): J18.9 - Pneumonia, unspecified organism Code(s): J18.9 - Pneumonia, unspecified organism Status: Acute Assessment and Plan: Patient presented for confusion. States he has had a cough for the last 1 week. Chest x-ray concerning for patchy bilateral airspace opacities, consistent with atelectasis versus pneumonia. Slight leukocytosis at 11,000. Otherwise patient is resting comfortably on room air. Was admitted for confusion and pneumonia treatment with IV antibiotics. COVID PCR was negative. Currently patient is doing well, A&O x4. Continue with DuoNebs. Oxygen 97% on RA. Continue IV antibiotics with Rocephin and azithromycin #4. Blood cultures prelim report w/ gram positive cocci, final report pending. (2) Cough: Code(s): R05 - Cough Status: Acute Assessment and Plan: See above. (3) Generalized weakness: Code(s): R53.1 - Weakness Status: Acute Assessment and Plan: Most likely due to pneumonia. PT/OT ordered. (4) COPD (chronic obstructive pulmonary disease): Code(s): J44.9 - Chronic obstructive pulmonary disease, unspecified Status: Acute Assessment and Plan: Lungs are clear with no wheezing. Continue home meds. Subjective Date/time seen: 09/12/21 14:05 Interval history: Patient states he is feeling better today. Still has dry cough. Denies confusion, is A/Ox3, however does get confused at times. Review of Systems Review of Systems: General: Denies fevers Eyes: Denies vision changes ENT: Denies nasal congestion or sore throat Respiratory: + cough, denies shortness of breath Cardiovascular: Denies chest pain or lower extremity edema Gastrointestinal: Denies abdominal pain, vomiting, or diarrhea Genitourinary: Denies dysuria Musculoskeletal: Denies back pain Neurological: Denies headache or motor weakness Integumentary: Denies rash Exam Narrative: General: No acute distress, non toxic appearing, elderly Eyes: PERRL, no scleral icterus HEENT: NCAT, external ears normal, MMM Respiratory: No respiratory distress, Lungs CTA bilaterally, no wheezing Cardiovascular: RRR, no murmur Abdominal: Soft, nontender, non distended, no rebound or guarding Musculoskeletal: Moves all 4 extremities, no edema Neurological: A/Ox3, speech normal, no facial asymmetry Skin: Warm, dry, no rashes, +pallor Psychiatric: Normal affect, normal mood Objective Data Vital Signs Vital Signs: Vital Signs - 24 hr 09/11/21 14:40 09/11/21 14:50 09/11/21 19:58 Temperature Pulse Rate 85 80 77 Respiratory Rate 18 18 16 Blood Pressure Pulse Oximetry 93 09/11/21 20:00 09/11/21 20:07 09/11/21 20:08 Temperature 97 F L Pulse Rate 78 74 78 Respiratory Rate 17 16 17 Blood Pressure 145/77 H Pulse Oximetry 96 96 09/12/21 01:51 09/12/21 01:58 09/12/21 06:00 Temperature 97.5 F L Pulse Rate 71 70 72 Respiratory Rate 16 16 18 Blood Pressure 149/62 H Pulse Oximetry 93 09/12/21 09:22 09/12/21 09:56 Temperature Pulse Rate 68 72 Respiratory Rate 16 Blood Pressure Pulse Oximetry Intake/Output Intake/Output: Intake & Output 09/09/21 09/10/21 09/11/21 09/12/21 23:59 23:59 23:59 23:59 Intake Total 2280 1720 1190 440 Balance 2280 1720 1190 440 Meds/Results Medications: Active Medications Generic Name Dose Route Start Last Admin Trade Name Freq PRN Reason Stop Dose Admin Acetaminophen 650 mg 09/08/21 22:45 Acetaminophen 325 Mg Tablet PO Q4H PRN Mild Pain (1-3) or Fever Acetam
--- NOTE | 2021-09-13 04:11 | PCRCNOTE ---
Window of time for administration has passed. See next scheduled administration.
[2021-09-13 06:00] VITALS: BP 176/77; PULSE 64; RESP 18; TEMP 37.2; O2SAT 95
[2021-09-13 06:44] LABS: Basophils Percent Auto 0.5 % (0.2-1.2); Eosinophils Absolute Auto 0.4 K/mm3 (0-0.3); Eosinophils Percent Auto 6.3 % (0-4.4); Hematocrit 41.7 % (42.0-52.0); Hemoglobin 13.7 g/dL (14.0-18.0); Immature Granulocyte Absolute 0.03 K/mm3 (0.00-0.031); Immature Granulocyte Percent A 0.5 % (0-0.5); Lymphocytes Percent Auto 22.3 % (18.3-44.2); Mean Corpuscular HGB Conc 32.9 g/dl (32-36); Mean Corpuscular Hemoglobin 29.3 pg (26-34); Mean Corpuscular Volume 89.1 fl (80-100); Mean Platelet Volume 9.9 fl (7.4-10.4); Monocytes Absolute Auto 0.4 K/mm3 (0.1-0.6); Monocytes Percent Auto 6.9 % (2.6-8.5); Neutrophils Absolute Auto 3.7 K/mm3 (1.3-6.7); Neutrophils Percent Auto 63.5 % (45.5-73.1); Platelet Count Result 191 k/mm3 (150-375); Red Blood Count 4.68 M/mm3 (4.6-6.20); Red Cell Distribution Width 13.2 % (11.5-14.5); White Blood Count 5.8 K/mm3 (4.5-10.0)
[2021-09-13 06:56] LABS: Alanine Aminotransferase 24 U/L (4-50); Albumin Level 4.3 g/dL (3.5-5.1); Alkaline Phosphatase 57 U/L (38-126); Anion Gap 11 mmol/L (8-16); Aspartate Amino Transferase 32 U/L (17-59); Bilirubin,Total 0.5 mg/dL (0.2-1.3); Blood Urea Nitrogen 16 mg/dL (9-20); Carbon Dioxide 26 mmol/L (22-30); Chloride 99 mmol/L (98-107); Estimated CRCL calculation 63 ml/min; Estimated Glomerular Filt Rate > 60; Glucose 124 mg/dL (65-110); Potassium 4.4 mmol/L (3.4-5.0); Sodium 136 mmol/L (137-145)
[2021-09-13 07:40] VITALS: PULSE 71; RESP 18
[2021-09-13] MEDS: ALBUTEROL SULFATE NEB 2.5 MG/0.5 ML INH 5 MG INHALATION (07:43)
[2021-09-13 07:44] VITALS: O2SAT 96
[2021-09-13] MEDS: UMECLIDINIUM BROMIDE 62.5 MCG ELLIPTA 1 PUFF INHALATION (07:44)
[2021-09-13] MEDS: IPRATROPIUM BR 0.02% INH SOLN 0.5 MG/2.5 ML VIAL INHALATION (07:44)
[2021-09-13] MEDS: FLUTICASONE/SALMETEROL 115-21 MCG INHALER 1 PUFF 2 PUFF INHALATION (07:44)
[2021-09-13 07:47] VITALS: PULSE 73; RESP 18
[2021-09-13] MEDS: OMEGA 3 POLYUNSAT FATTY ACIDS 1 GM CAP PO (09:30)
[2021-09-13] MEDS: ACETAMINOPHEN 500 MG TABLET PO (09:30)
[2021-09-13] MEDS: OPTI-GEN TAB 1 TABLET PO (09:30)
[2021-09-13] MEDS: CHOLECALCIFEROL 1,000 UNITS TABLET 3000 UNITS PO (09:30)
[2021-09-13] MEDS: ROSUVASTATIN 10 MG TABLET 40 MG PO (09:30)
[2021-09-13 09:31] VITALS: PULSE 78
[2021-09-13] MEDS: CYANOCOBALAMIN 1,000 MCG TABLET 1000 MCG PO (09:31)
[2021-09-13] MEDS: SERTRALINE HCL 50 MG TABLET 100 MG PO (09:31)
[2021-09-13] MEDS: CLOPIDOGREL BISULFATE 75 MG TABLET PO (09:31)
[2021-09-13] MEDS: MULTIVITAMINS THERAPEUTIC TAB (*BKC) 1 TABLET PO (09:31)
[2021-09-13] MEDS: ASCORBIC ACID 500 MG TABLET PO (09:31)
[2021-09-13] MEDS: METOPROLOL SUCCINATE EXT REL 25 MG TABCR PO (09:31)
[2021-09-13] MEDS: HEPARIN SODIUM 5,000 UNITS/ML VIAL 5000 UNITS SUB-Q (09:31)
--- NOTE | 2021-09-13 12:39 | PM.DS ---
DS: Admitting Diagnosis Discharge Date 09/13/21 Admitting Diagnosis pnuemonia DS: Discharge Diagnosis Discharge Diagnosis (1) Pneumonia: Qualifiers: Laterality: unspecified laterality Lung location: unspecified part of lung Pneumonia type: due to unspecified organism Qualified Code(s): J18.9 - Pneumonia, unspecified organism Code(s): J18.9 - Pneumonia, unspecified organism Status: Acute Assessment and Plan: Patient presented for confusion. States he has had a cough for the last 1 week. Chest x-ray concerning for patchy bilateral airspace opacities, consistent with atelectasis versus pneumonia. Slight leukocytosis at 11,000. Otherwise patient is resting comfortably on room air. Was admitted for confusion and pneumonia treatment with IV antibiotics. COVID PCR was negative. Currently patient is doing well, A&O x4. Continued DuoNebs. Oxygen 97% on RA. treated with IV antibiotics with Rocephin and azithromycin #5. Will send home with 5 more days of Cefdinir to complete treatment. Blood cultures prelim report w/ gram positive cocci. Final report with coag negative staph and leuconostoc mesenteroides which I suspect to be contaminants. Pt does not have leukocytosis. On arrival it was 11,000 but for the past 4 days has been normal. He has never had a fever, tachycardia, or tachypnea. Pt was treated successfully for community acquired pneumonia and is feeling much better. I do not feel as if he was at any point bacteremic. (2) Cough: Code(s): R05 - Cough Status: Acute Assessment and Plan: See above. (3) Generalized weakness: Code(s): R53.1 - Weakness Status: Acute Assessment and Plan: Most likely due to pneumonia. Doing well with PT/OT. Has walker to use at home. (4) COPD (chronic obstructive pulmonary disease): Code(s): J44.9 - Chronic obstructive pulmonary disease, unspecified Status: Acute Assessment and Plan: Lungs are clear with no wheezing. Continued home meds. DS: Summary Hospital Course Reason for hospitalization: 85-year-old male with past medical history significant for COPD she should emphysema coronary artery disease, dyslipidemia, admitted for pneumonia. Please see HPI for further details. Hospital Course: Please see above for details of hospital course. Status at Discharge Cognitive/behavioral status at discharge: stable Functional status at discharge: uses cane/walker Overall status at discharge: patient is progressing back to baseline Time Spent with Patient Time attestation: Total time spent providing and/or coordinating discharge services: 35 Time spent: Greater than 30 minutes Exam Narrative: General: No acute distress, non toxic appearing, elderly Eyes: PERRL, no scleral icterus HEENT: NCAT, external ears normal, MMM Respiratory: No respiratory distress, Lungs CTA bilaterally, no wheezing Cardiovascular: RRR, no murmur Abdominal: Soft, nontender, non distended, no rebound or guarding Musculoskeletal: Moves all 4 extremities, no edema Neurological: A/Ox3, speech normal, no facial asymmetry Skin: Warm, dry, no rashes, +pallor Psychiatric: Normal affect, normal mood DS: Data Data Completed and Pending Labs on day of discharge: Labs from last 24 hours 09/13/21 09/13/21 06:17 06:17 WBC 5.8 RBC 4.68 Hgb 13.7 L Hct 41.7 L MCV 89.1 MCH 29.3 MCHC 32.9 RDW 13.2 Plt Count 191 MPV 9.9 Immature Gran % (Auto) 0.5 Neut % (Auto) 63.5 Lymph % (Auto) 22.3 [place] % (Auto) 6.9 Eos % (Auto) 6.3 H Baso % (Auto) 0.5 Lymph # (Auto) 1.30 [place] # (Auto) 0.4 Eos # (Auto) 0.4 H Baso # (Auto) 0.0 Abs Immat Gran (auto) 0.03 Absolute Neuts (auto) 3.7 Absolute Nucle
[2021-09-13 13:46] VITALS: BP 126/64; PULSE 67; RESP 16; TEMP 35.9; O2SAT 95
== END 2021-09-13 14:48 | disposition home health service (06) | DRG 194 ==
LOC: ANHED 19:57 → ANH3MED 23:28
PROVIDERS: Emergency Medicine; Physician Assistant; Admitting Provider Internal Medicine; Emergency Provider Emergency Medicine; PCP Internal Medicine; Visit Provider Physician Assistant
DX: J18.9 Pneumonia, unspecified organism (principal); J44.0 Chronic obstructive pulmonary disease with (acute) lower respiratory infection; D64.9 Anemia, unspecified; E78.1 Pure hyperglyceridemia; E78.5 Hyperlipidemia, unspecified; I25.10 Atherosclerotic heart disease of native coronary artery without angina pectoris; I10 Essential (primary) hypertension; M17.12 Unilateral primary osteoarthritis, left knee; M19.071 Primary osteoarthritis, right ankle and foot; Z20.822 Contact with and (suspected) exposure to COVID-19; Z95.5 Presence of coronary angioplasty implant and graft; Z90.79 Acquired absence of other genital organ(s); Z85.46 Personal history of malignant neoplasm of prostate; Z96.89 Presence of other specified functional implants
CPT/HCPCS: 36415; 70450; 71045; 80048; 80053; 83605; 83735; 84484; 85025; 85027; 85610; 85730; 87040; 87077; 87186; 87804; 93005; 94640; 96361; 96365; 96366; 96367; 96372; 97110; 97116; 97162; 97165; 97530; 97535; 99285; A9270; C9803; G0378; J0456; J0696; J1644; J7030; U0003; U0005

== ENCOUNTER 2021-09-19 13:40 | Outpatient (NON) | payer MEDICARE, SELFPAY ==
[2021-09-19 14:44] LABS: Mucus Urine Rare /lpf; RBC Urine 0-2 /hpf (0-2); Squamous Epithelial Cell Urine Rare /hpf (Few); WBC Urine 0-3 /hpf
[2021-09-19 14:50] LABS: Add Urine Microscopic? YES; Appearance Urine Clear (Clear); Bilirubin Urine Negative (Negative); Blood Urine Negative (Negative); Color Urine Yellow (Yellow); Glucose Urine UA Negative (Negative); Ketones Urine Negative (Negative); Leukocyte Esterase Ur Negative LEU/UL (Negative); Nitrate Urine Negative (Negative); Protein Urine Negative (Negative); Specific Grav Ur 1.016 (1.001-1.035); Urobilinogen Urine Negative mg/dL (<2.0)
== END 2021-09-19 13:41 | disposition home or self-care (01) ==
PROVIDERS: PCP Internal Medicine; Visit Provider Internal Medicine
DX: J44.0 Chronic obstructive pulmonary disease with (acute) lower respiratory infection (principal); I10 Essential (primary) hypertension; J18.9 Pneumonia, unspecified organism; E66.09 Other obesity due to excess calories
CPT/HCPCS: 81001

== ENCOUNTER 2022-03-19 10:23 | Outpatient (CLI) | payer MEDICARE, SELFPAY ==
[2022-03-19 11:58] LABS: Basophils Percent Auto 0.4 % (0.2-1.2); Eosinophils Absolute Auto 0.1 K/mm3 (0-0.3); Eosinophils Percent Auto 1.7 % (0-4.4); Hematocrit 42.4 % (42.0-52.0); Hemoglobin 13.6 g/dL (14.0-18.0); Immature Granulocyte Absolute 0.01 K/mm3 (0.00-0.031); Immature Granulocyte Percent A 0.1 % (0-0.5); Lymphocytes Absolute Auto 2.22 K/mm3 (0.9-3.2); Lymphocytes Percent Auto 31.8 % (18.3-44.2); Mean Corpuscular HGB Conc 32.1 g/dl (32-36); Mean Corpuscular Hemoglobin 28.9 pg (26-34); Mean Corpuscular Volume 90.2 fl (80-100); Mean Platelet Volume 10.6 fl (7.4-10.4); Monocytes Absolute Auto 0.7 K/mm3 (0.1-0.6); Monocytes Percent Auto 9.6 % (2.6-8.5); Neutrophils Absolute Auto 3.9 K/mm3 (1.3-6.7); Neutrophils Percent Auto 56.4 % (45.5-73.1); Platelet Count Result 149 k/mm3 (150-375)
[2022-03-19 12:10] LABS: Iron 74 ug/dL (49-181)
[2022-03-19 12:10] LABS: Alanine Aminotransferase 21 U/L (6-50); Albumin Level 4.8 g/dL (3.5-5.1); Alkaline Phosphatase 54 U/L (38-126); Anion Gap 9 mmol/L (8-16); Aspartate Amino Transferase 41 U/L (17-59); Bilirubin,Total 0.5 mg/dL (0.2-1.3); Blood Urea Nitrogen 17 mg/dL (9-20); Calcium 9.3 mg/dL (8.4-10.2); Carbon Dioxide 27 mmol/L (22-30); Chloride 102 mmol/L (98-107); Cholesterol 156 mg/dL (0-200); Estimated Glomerular Filt Rate > 60; Glucose 112 mg/dL (65-110); HDL Direct 38 mg/dL; Potassium 4.1 mmol/L (3.4-5.0); Sodium 138 mmol/L (137-145); Triglycerides 355 mg/dL (<150)
[2022-03-19 12:21] LABS: Percent Iron Saturation 24 % (20-50)
[2022-03-19 12:27] LABS: LDL Cholesterol Direct < 30 mg/dL
[2022-03-19 13:19] LABS: Folic Acid > 20.0 ng/mL (2.76->20)
[2022-03-25 17:23] LABS: Testosterone Total <1 ng/dL (250-1100)
== END 2022-03-19 10:24 | disposition home or self-care (01) ==
LOC: ANHGOSHLAB 10:25
PROVIDERS: PCP Internal Medicine; Visit Provider Nurse Practitioner
DX: D64.9 Anemia, unspecified (principal); R53.83 Other fatigue; E29.1 Testicular hypofunction
CPT/HCPCS: 36415; 80053; 80061; 82607; 82728; 82746; 83540; 83550; 84402; 84403; 84443; 85025

== ENCOUNTER 2022-06-27 14:29 | Emergency (ER) | payer MEDICARE, SELFPAY ==
--- NOTE | ~2022-06-27 | XR_ITS ---
EXAMINATION: XR chest 2V DATE: 06/27/2022 15:34 INDICATION: Weakness. Fatigue. TECHNIQUE: Frontal and lateral views of the chest were obtained. COMPARISON: Chest single view 09/08/2021 FINDINGS: Again seen is mild elevation of right hemidiaphragm. There is mild atelectasis in the lower lung zones. No pleural effusion or pneumothorax. The heart size is normal. There are changes of post erior fusion procedure in lumbar spine. A foreign body overlying the mediastinum on the frontal view is not seen on the lateral view and may be outside the patient. IMPRESSION: 1. Mild atelectasis in the lower lung zones. Reviewed, dictated and finalized at location A.
[2022-06-27 14:40] VITALS: BP 103/67; PULSE 76; RESP 16; TEMP 36.2; O2SAT 97
--- NOTE | 2022-06-27 15:11 | ED.GENADULT ---
HPI - General Adult General Chief complaint: Weakness Stated complaint: weakness, fatigue Time Seen by Provider: 06/27/22 15:14 Mode of arrival: ambulatory Limitations: no limitations History of Present Illness HPI narrative: 86-year-old male presents with concern for approximately 1 week history of general weakness. He reports on June 17 he was seen by his primary care provider for upper respiratory symptoms and was given steroids and Augmentin, he did not tolerate the Augmentin well says several days later was given a Z-Papi. He reports he finished the Z-Papi. Reports he has occasional cough, most his upper respiratory symptoms are resolved however he has poor appetite, fatigue, low energy with general weakness. reports she has to help him get out of bed. She reports he has had symptoms like this in the past when he has had a urinary tract infection, reports they called his urologist today and did a UA at an outside lab which they were told was normal. She reports in the past he was is for general weakness of unknown origin and given IV fluids which helped his symptoms. He denies weakness in anyone extremity, trouble speaking, headaches, vomiting, diarrhea MD complaint: General weakness Related Data Home Medications Medication Instructions Recorded Confirmed acetaminophen 500 mg tablet 500 mg PO BID 09/29/19 06/18/22 (Tylenol Extra Strength) albuterol sulfate 90 mcg/actuation 2 puff inhalation Q4-6H PRN Dyspnea 09/29/19 06/18/22 aerosol inhaler (ProAir HFA) ascorbate calcium (vitamin C) 500 500 mg PO DAILY 09/29/19 06/18/22 mg tablet budesonide-formoterol HFA 160 2 puff inhalation Q12H 09/29/19 06/18/22 mcg-4.5 mcg/actuation aerosol inhaler (Symbicort) cholecalciferol (vitamin D3) 25 3,000 unit PO DAILY 09/29/19 06/18/22 mcg (1,000 unit) capsule clopidogrel 75 mg tablet 75 mg PO DAILY 09/29/19 06/18/22 mecobalamin (vitamin B12) 1,000 1,000 mcg sublingual DAILY 09/29/19 06/18/22 mcg disintegrating tablet,sublingual multivitamin 1 tablet PO DAILY 09/29/19 06/18/22 nitroglycerin 0.4 mg sublingual 0.4 mg sublingual Q5M PRN Chest 09/29/19 06/18/22 tablet (Nitrostat) Pain omega-3 acid ethyl esters 1 gram 2 cap PO BID 09/29/19 06/18/22 capsule (Lovaza) rosuvastatin 40 mg tablet (Crestor) 40 mg PO DAILY 09/29/19 06/18/22 tiotropium bromide 18 mcg capsule 1 cap inhalation DAILY 09/29/19 06/18/22 with inhalation device (Spiriva with HandiHaler) vit C 250 mg-vit E 90 mg-zinc 40 1 tablet PO BID 09/29/19 06/18/22 mg-copper 1 [id number] capsule (PreserVision AREDS-2) ipratropium 0.5 mg-albuterol 3 mg 3 ml inhalation .QD Shortness Of 03/19/22 06/18/22 (2.5 mg base)/3 mL nebulization Breath soln magnesium oxide 400 mg PO DAILY 03/19/22 06/18/22 Allergies Allergy/AdvReac Type Severity Reaction Status Date / Time pneumococcal vaccine Allergy Unknown Hypersensit Verified 06/18/22 13:53 ivity Sulfa (Sulfonamide Allergy Unknown Unknown Verified 06/18/22 13:53 Antibiotics) Review of Systems Review of Systems: CONSTITUTIONAL: Reports malaise, fatigue, low energy. Denies chills, sweats, or fever. EYES: Denies visual changes, redness, or discharge. ENT: Denies rhinorrhea, congestion, sinus pain, otalgia or sore throat. CARDIOVASCULAR: Denies chest pain, palpitations, or edema. RESPIRATORY: Reports cough. Denies dyspnea. GASTROINTESTINAL: Denies abdominal pain, nausea, vomiting, diarrhea, bloody, or mucous stools. GENITOURINARY: Denies dysuria or hematuria. SKIN: Denies rash or itching. MUSCULOSKELETAL: Denies back pain, joint pain, or myalgia. Reports general muscle weakness NEUROLOGIC: Denies numbness, unilateral weakness, or headache. PSYCHIATRIC: Denies anxiety or depression. All systems reviewed & are unremarkable except as noted in HPI and below PMFSH Past Medical History Medical History (Updated 06/27/22 @ 16:06 by Sujey Hicks NP) Anemia, unspecified Callus o
== END 2022-06-27 16:14 | disposition short-term general hospital (02) ==
PROVIDERS: Emergency Provider Nurse Practitioner; PCP Internal Medicine
DX: R53.1 Weakness (principal); E78.5 Hyperlipidemia, unspecified; J44.9 Chronic obstructive pulmonary disease, unspecified; I10 Essential (primary) hypertension; Z85.46 Personal history of malignant neoplasm of prostate; Z20.822 Contact with and (suspected) exposure to COVID-19
CPT/HCPCS: 71046; 87426; 87804; 99213; C9803; G0463

== ENCOUNTER 2022-06-27 16:36 | Emergency (ER) | payer MEDICARE, SELFPAY ==
--- NOTE | 2022-06-27 17:27 | ECG_ITS ---
Measurements Intervals [place] Rate: 74 P: HI: 0 QRS: 1 QRSD: 84 T: 58 QT: 387 QTc: 431 Interpretive Statements SINUS RHYTHM NONSPECIFIC ST AND T-WAVE ABNORMALITY ABNORMAL RHYTHM ECG COMPARED TO ECG 09/08/2021 19:41:31 NO SIGNIFICANT CHANGES Electronically Signed On 06-28-2022 13:04:25 CDT by Maritza Ward M.D.
[2022-06-27 17:28] VITALS: BP 120/67; PULSE 76; RESP 14; TEMP 36.5; O2SAT 96
[2022-06-27 17:46] LABS: Basophils Absolute Auto 0.1 K/mm3 (0.0-0.1); Basophils Percent Auto 0.8 % (0.2-1.2); Eosinophils Absolute Auto 0.3 K/mm3 (0-0.3); Eosinophils Percent Auto 3.3 % (0-4.4); Hematocrit 45.8 % (42.0-52.0); Hemoglobin 14.9 g/dL (14.0-18.0); Immature Granulocyte Absolute 0.05 K/mm3 (0.00-0.031); Immature Granulocyte Percent A 0.6 % (0-0.5); Lymphocytes Absolute Auto 1.82 K/mm3 (0.9-3.2); Lymphocytes Percent Auto 20.6 % (18.3-44.2); Mean Corpuscular HGB Conc 32.5 g/dl (32-36); Mean Corpuscular Hemoglobin 29.4 pg (26-34); Mean Corpuscular Volume 90.3 fl (80-100); Mean Platelet Volume 9.7 fl (7.4-10.4); Monocytes Percent Auto 11.8 % (2.6-8.5); Neutrophils Absolute Auto 5.6 K/mm3 (1.3-6.7); Neutrophils Percent Auto 62.9 % (45.5-73.1); Platelet Count Result 149 k/mm3 (150-375); Red Blood Count 5.07 M/mm3 (4.6-6.20); Red Cell Distribution Width 14.1 % (11.5-14.5); White Blood Count 8.8 K/mm3 (4.5-10.0)
[2022-06-27 18:06] LABS: Alanine Aminotransferase 51 U/L (6-50); Albumin Level 4.6 g/dL (3.5-5.1); Alkaline Phosphatase 62 U/L (38-126); Anion Gap 11 mmol/L (8-16); Aspartate Amino Transferase 39 U/L (17-59); Bilirubin,Total 0.8 mg/dL (0.2-1.3); Blood Urea Nitrogen 22 mg/dL (9-20); Calcium 8.7 mg/dL (8.4-10.2); Carbon Dioxide 25 mmol/L (22-30); Chloride 98 mmol/L (98-107); Estimated CRCL calculation 50 ml/min; Estimated Glomerular Filt Rate > 60; Glucose 134 mg/dL (65-110); Potassium 4.2 mmol/L (3.4-5.0); Sodium 134 mmol/L (137-145)
--- NOTE | 2022-06-27 21:28 | ED.WEAKNESS ---
HPI - Weakness General Chief complaint: Weakness Stated complaint: weak Time Seen by Provider: 06/27/22 18:47 History of Present Illness HPI Narrative: Patient is an 86-year-old male who presents ER with generalized weakness. Ongoing for a couple weeks. Was seen in urgent care today and had a negative swab for COVID and influenza. No fevers or chills or sweats. No chest pain or chest pressure. He has no focal weakness. He has been eating and drinking but in small amounts. Reports his primary care doctor is treated with multiple rounds of antibiotics and he has been on steroids previously as well. He just finished azithromycin. Related Data Home Medications Medication Instructions Recorded Confirmed acetaminophen 500 mg tablet 500 mg PO BID 09/29/19 06/27/22 (Tylenol Extra Strength) albuterol sulfate 90 mcg/actuation 2 puff inhalation Q4-6H PRN Dyspnea 09/29/19 06/27/22 aerosol inhaler (ProAir HFA) ascorbate calcium (vitamin C) 500 500 mg PO DAILY 09/29/19 06/27/22 mg tablet budesonide-formoterol HFA 160 2 puff inhalation Q12H 09/29/19 06/27/22 mcg-4.5 mcg/actuation aerosol inhaler (Symbicort) cholecalciferol (vitamin D3) 25 3,000 unit PO DAILY 09/29/19 06/27/22 mcg (1,000 unit) capsule clopidogrel 75 mg tablet 75 mg PO DAILY 09/29/19 06/27/22 mecobalamin (vitamin B12) 1,000 1,000 mcg sublingual DAILY 09/29/19 06/27/22 mcg disintegrating tablet,sublingual multivitamin 1 tablet PO DAILY 09/29/19 06/27/22 nitroglycerin 0.4 mg sublingual 0.4 mg sublingual Q5M PRN Chest 09/29/19 06/27/22 tablet (Nitrostat) Pain omega-3 acid ethyl esters 1 gram 2 cap PO BID 09/29/19 06/27/22 capsule (Lovaza) rosuvastatin 40 mg tablet (Crestor) 40 mg PO DAILY 09/29/19 06/27/22 tiotropium bromide 18 mcg capsule 1 cap inhalation DAILY 09/29/19 06/27/22 with inhalation device (Spiriva with HandiHaler) vit C 250 mg-vit E 90 mg-zinc 40 1 tablet PO BID 09/29/19 06/27/22 mg-copper 1 [id number] capsule (PreserVision AREDS-2) ipratropium 0.5 mg-albuterol 3 mg 3 ml inhalation .QD Shortness Of 03/19/22 06/27/22 (2.5 mg base)/3 mL nebulization Breath soln magnesium oxide 400 mg PO DAILY 03/19/22 06/27/22 Allergies Allergy/AdvReac Type Severity Reaction Status Date / Time pneumococcal vaccine Allergy Unknown Hypersensit Verified 06/18/22 13:53 ivity Sulfa (Sulfonamide Allergy Unknown Unknown Verified 06/18/22 13:53 Antibiotics) Review of Systems Review of Systems: All systems reviewed & are unremarkable except as noted in HPI and below Constitutional: Constitutional: Denies chills, Reports fatigue and Denies fever(s) ENT: Denies nasal congestion and Denies sore throat Cardiovascular: Cardiovascular: Denies chest pain, Denies rapid heart rate and Denies radiating jaw, neck or arm pain Respiratory: Respiratory: Reports cough (Improved) and Denies dyspnea Gastrointestinal: Gastrointestinal: Denies abdominal pain, Denies nausea and Denies vomiting Genitourinary: Genitourinary: Denies dysuria Musculoskeletal: Musculoskeletal: Denies arthralgias and Denies joint swelling [facility] Past Medical History Medical History (Updated 06/27/22 @ 21:29 by Eduar Pablo MD) Anemia, unspecified Callus of foot COPD (chronic obstructive pulmonary disease) Deficient knowledge of leg surgery 2 stents in lt leg HLD (hyperlipidemia) HTN (hypertension) Hypogonadism in male Left knee DJD Pain in left knee Primary osteoarthritis of left knee Primary osteoarthritis, right ankle and foot Prostate cancer Right knee DJD Weakness of left lower extremity Surgical History Surgical History H/O heart artery stent H/O prostatectomy History of ankle surgery History of back surgery History of cystoscopy History of neck surgery Status post implantation of artificial urinary sphincter removed, washout and urethral repair Family History Family Hi
== END 2022-06-27 22:35 | disposition home or self-care (01) ==
PROVIDERS: Emergency Medicine; Emergency Provider Emergency Medicine; PCP Internal Medicine
DX: R53.83 Other fatigue (principal); J44.9 Chronic obstructive pulmonary disease, unspecified; I10 Essential (primary) hypertension; E78.5 Hyperlipidemia, unspecified; Z87.891 Personal history of nicotine dependence
CPT/HCPCS: 36415; 71046; 80053; 85025; 87426; 87804; 93005; 99283; C9803

== ENCOUNTER 2022-08-26 12:34 | Inpatient (IN) | payer MEDICARE, SELFPAY ==
--- NOTE | ~2022-08-26 | XR_ITS ---
EXAMINATION: XR fluoroscopy no charge DATE: 08/27/2022 14:05 HOSPITAL PHARMACY DIRECTOR INDICATION: URETHRAL DILATATION . TECHNIQUE: 4 fluoroscopic images of the pelvis were obtained during ureteral dilation performed by home e surgeon. I was not present in the operating room. Fluoroscopy exposure time was 31 seconds. DAP 0.4 [id number] [id number]. COMPARISON: None FINDINGS: Wire access into the urinary bladder followed by advancement of overt wire dilators. Multiple pelvic surgical clips. Inferior portion of lumbar spine fusion hardware is visualized. IMPRESSION: Fluoroscopic documentation of ureteral dilation. Please refer to the operative note for complete proc edural details . Reviewed, dictated and finalized at location K. ITAL PHARMACY DIRECTOR IMPRESSION: Fluoroscopic documentation of ureteral dilation. Please refer to the operative note for complete procedural details .
--- NOTE | ~2022-08-26 | XR_ITS ---
EXAM: XR foot RT min 3V DATE: 08/26/2022 18:14 HISTORY: Cellulitis of right big toe, r/o gross osteo . COMPARISON: None available. FINDINGS: Uncomplicated appearing cannulated screw and screw and plate fixation of the distal tibia. Decreased mineralization. No acute fracture or dislocation. Severe degenerative change at the tibiot alar joint. Achilles and plantar enthesopathy. Mild-moderate degenerative changes in the midfoot and first MTP joint. Subtle loss of the cortical line in the anterior aspect of the right first distal ph alange. Soft tissue swelling over the great toe with ulceration. IMPRESSION: Radiographic findings suggestive of early osteoarthritis in the first distal phalange. Reviewed, dictated and finalized at location K. K SEALER IMPRESSION: Radiographic findings suggestive of early osteoarthritis in the fir st distal phalange.
--- NOTE | ~2022-08-26 | XR_ITS ---
EXAMINATION: XR chest 2V DATE: 08/26/2022 13:08 INDICATION: Weakness and shortness of breath TECHNIQUE: AP and lateral views of the chest are obtained. COMPARISON: 06/27/2022 FINDINGS: There is chronic mild elevation of the right hemidiaphragm. There is mild atelectasis of th e lung bases. No pleural effusion or pneumothorax. The cardiomediastinal silhouette is normal. There is mild thoracic spondylosis. Changes of posterior fusion procedure are noted in the lumbar spine. IMPRESSION: 1. Mild atelectasis of the lung bases. Reviewed, dictated and finalized at location L. OENGRAVING HELPER
[2022-08-26 12:42] VITALS: BP 104/82; PULSE 122; RESP 16; TEMP 36.2; O2SAT 97
--- NOTE | 2022-08-26 12:47 | ECG_ITS ---
Measurements Intervals [place] Rate: 98 P: DE: 0 QRS: 12 QRSD: 93 T: 28 QT: 326 QTc: 417 Interpretive Statements SINUS RHYTHM WITH FREQUENT PREMATURE ATRIAL CONTRACTIONS AND PREMATURE VENTRICULAR CONTRACTIONS BASELINE ARTIFACT NONSPECIFIC ST & T-WAVE ABNORMALITY BORDERLINE ECG COMPARED TO ECG 06/27/2022 17:34:49 HEART RATE HAS INCREASED Electronically Signed On 08-26-2022 18:00:36 [employer]NAGER by Delonte Joe M.D.
[2022-08-26 13:06] LABS: Basophils Absolute Auto 0.1 K/mm3 (0.0-0.1); Basophils Percent Auto 0.5 % (0.2-1.2); Eosinophils Absolute Auto 0.2 K/mm3 (0-0.3); Eosinophils Percent Auto 0.9 % (0-4.4); Hematocrit 43.6 % (42.0-52.0); Hemoglobin 14.3 g/dL (14.0-18.0); Immature Granulocyte Absolute 0.09 K/mm3 (0.00-0.031); Immature Granulocyte Percent A 0.5 % (0-0.5); Lymphocytes Percent Auto 14.8 % (18.3-44.2); Mean Corpuscular HGB Conc 32.8 g/dl (32-36); Mean Corpuscular Hemoglobin 28.9 pg (26-34); Mean Corpuscular Volume 88.1 fl (80-100); Mean Platelet Volume 9.9 fl (7.4-10.4); Monocytes Absolute Auto 1.4 K/mm3 (0.1-0.6); Monocytes Percent Auto 7.8 % (2.6-8.5); Neutrophils Absolute Auto 13.3 K/mm3 (1.3-6.7); Neutrophils Percent Auto 75.5 % (45.5-73.1); Platelet Count Result 168 k/mm3 (150-375); Red Blood Count 4.95 M/mm3 (4.6-6.20); Red Cell Distribution Width 13.2 % (11.5-14.5); White Blood Count 17.5 K/mm3 (4.5-10.0)
[2022-08-26 13:16] LABS: Alanine Aminotransferase 26 U/L (6-50); Albumin Level 4.7 g/dL (3.5-5.1); Alkaline Phosphatase 61 U/L (38-126); Anion Gap 11 mmol/L (8-16); Aspartate Amino Transferase 46 U/L (17-59); Bilirubin,Total 1.2 mg/dL (0.2-1.3); Blood Urea Nitrogen 13 mg/dL (9-20); Calcium 8.7 mg/dL (8.4-10.2); Carbon Dioxide 27 mmol/L (22-30); Chloride 96 mmol/L (98-107); Estimated CRCL calculation 62 ml/min; Estimated Glomerular Filt Rate > 60; Glucose 160 mg/dL (65-110); Potassium 3.8 mmol/L (3.4-5.0); Sodium 134 mmol/L (137-145)
--- NOTE | 2022-08-26 17:40 | ED.GENADULT ---
HPI - General Adult General Chief complaint: Weakness Stated complaint: dehyrdrated Time Seen by Provider: 08/26/22 17:03 History of Present Illness HPI narrative: 86-year-old male history of previous UTIs, right big toe cellulitis, CAD status post stent COPD presented with whole body weakness. Per patient for the last 3 to 4 days he has been feeling increased whole body weakness, and increase urinary frequency. He reports that is similar to his previous UTIs. He reports associated waterry diarrhea. He denied shortness of breath, fevers, chills, chest pain, change in his cough or sputum production, abdominal pain, nausea, vomiting. Past medical history: CAD, COPD Past surgical history: Denied Medications: Aspirin, Plavix Allergies: Sulfa drugs Related Data Home Medications Medication Instructions Recorded Confirmed acetaminophen 500 mg tablet 500 mg PO BID 09/29/19 07/28/22 (Tylenol Extra Strength) albuterol sulfate 90 mcg/actuation 2 puff inhalation Q4-6H PRN Dyspnea 09/29/19 07/28/22 aerosol inhaler (ProAir HFA) ascorbate calcium (vitamin C) 500 500 mg PO DAILY 09/29/19 07/28/22 mg tablet budesonide-formoterol HFA 160 2 puff inhalation Q12H 09/29/19 07/28/22 mcg-4.5 mcg/actuation aerosol inhaler (Symbicort) cholecalciferol (vitamin D3) 25 3,000 unit PO DAILY 09/29/19 07/28/22 mcg (1,000 unit) capsule clopidogrel 75 mg tablet 75 mg PO DAILY 09/29/19 07/28/22 mecobalamin (vitamin B12) 1,000 1,000 mcg sublingual DAILY 09/29/19 07/28/22 mcg disintegrating tablet,sublingual multivitamin 1 tablet PO DAILY 09/29/19 07/28/22 nitroglycerin 0.4 mg sublingual 0.4 mg sublingual Q5M PRN Chest 09/29/19 07/28/22 tablet (Nitrostat) Pain omega-3 acid ethyl esters 1 gram 2 cap PO BID 09/29/19 07/28/22 capsule (Lovaza) rosuvastatin 40 mg tablet (Crestor) 40 mg PO DAILY 09/29/19 07/28/22 tiotropium bromide 18 mcg capsule 1 cap inhalation DAILY 09/29/19 07/28/22 with inhalation device (Spiriva with HandiHaler) vit C 250 mg-vit E 90 mg-zinc 40 1 tablet PO BID 09/29/19 07/28/22 mg-copper 1 [id number] capsule (PreserVision AREDS-2) ipratropium 0.5 mg-albuterol 3 mg 3 ml inhalation .QD Shortness Of 03/19/22 07/28/22 (2.5 mg base)/3 mL nebulization Breath soln magnesium oxide 400 mg PO DAILY 03/19/22 07/28/22 Allergies Allergy/AdvReac Type Severity Reaction Status Date / Time pneumococcal vaccine Allergy Unknown Hypersensit Verified 08/06/22 11:33 ivity Sulfa (Sulfonamide Allergy Unknown Unknown Verified 08/06/22 11:33 Antibiotics) Review of Systems Review of Systems: See HPI [facility] Past Medical History Medical History Anemia, unspecified Callus of foot COPD (chronic obstructive pulmonary disease) Deficient knowledge of leg surgery 2 stents in lt leg HLD (hyperlipidemia) HTN (hypertension) Hypogonadism in male Left knee DJD Pain in left knee Primary osteoarthritis of left knee Primary osteoarthritis, right ankle and foot Prostate cancer Right knee DJD Weakness of left lower extremity Surgical History Surgical History H/O heart artery stent H/O prostatectomy History of ankle surgery History of back surgery History of cystoscopy History of neck surgery Status post implantation of artificial urinary sphincter removed, washout and urethral repair Family History Family History Father Cerebrovascular accident Heart attack Alcoholism Hypertension Depression Heart disease Mother Aneurysm Other Family history of arthritis Social History Social History (Updated 08/06/22 @ 11:35 by Janina Tapia MA) Social History: caffeine-coffee daily Smoking status: Former smoker Additional smoking assessment comments: 1ppd for 30 years stopped 20 years ago Alcohol intake: never Substa
[2022-08-26 17:56] VITALS: BP 139/80; PULSE 100; RESP 19; O2SAT 94
[2022-08-26 18:06] LABS: Lactic Acid Reflex 1.7 mmol/L (0.7-2.0)
[2022-08-26 18:16] VITALS: BP 141/86; PULSE 100; RESP 15
[2022-08-26 18:17] VITALS: PULSE 103; RESP 20; O2SAT 91
[2022-08-26 19:04] LABS: Influenza A QL RT-PCR Negative (Negative); Influenza B QL RT-PCR Negative (Negative); RSV RNA, RT-PCR Negative (Negative); SARS-CoV-2 RNA PCR Negative
--- NOTE | 2022-08-26 20:35 | PM.IMHP ---
H&P: HPI History of Present Illness Date/Time: 08/26/22 20:35 Chief Complaint: Generalized weakness Narrative: This is an 86-year-old male with past medical history significant for COPD/emphysema, degenerative joint disease, hypertension, dyslipidemia, recurrent urinary tract infection. Patient was brought to the emergency room for evaluation due to generalized weakness. Patient was found to have leukocytosis a urine sample was not able to obtain as patient is incontinent of urine a straight cath was not possible due to patient's ureteral stricture. Patient is unable to give much history he states that he wants to go home denies any pain at the time of my visit. Patient has been placed empirically on antibiotics due to leukocytosis. Patient has been admitted for further evaluation management and treatment. Review of Systems Review of Systems: Was brought to the emergency room due to generalized weakness however patient has not been able to give any history ROS unobtainable: Yes unobtainable due to mental status PMFSH Past Medical History Medical History (Updated 08/27/22 @ 00:29 by Blank Villareal MD) Anemia, unspecified Callus of foot COPD (chronic obstructive pulmonary disease) Deficient knowledge of leg surgery 2 stents in lt leg HLD (hyperlipidemia) HTN (hypertension) Hypogonadism in male Left knee DJD Pain in left knee Primary osteoarthritis of left knee Primary osteoarthritis, right ankle and foot Prostate cancer Right knee DJD Weakness of left lower extremity Surgical History Surgical History H/O heart artery stent H/O prostatectomy History of ankle surgery History of back surgery History of cystoscopy History of neck surgery Status post implantation of artificial urinary sphincter removed, washout and urethral repair Family History Family History Father Cerebrovascular accident Heart attack Alcoholism Hypertension Depression Heart disease Mother Aneurysm Other Family history of arthritis Social History Social History (Updated 08/06/22 @ 11:35 by Janina Tapia MA) Social History: caffeine-coffee daily Smoking packs per day: 1 Smoking cigarettes per day: 20.0 Years smoked: 30 Smoking pack-years: 30.00 Smoking status: Former smoker Additional smoking assessment comments: 1ppd for 30 years stopped 20 years ago Alcohol intake: never Substance use: never Substance use type: does not use Lack of Transportation: No Lack of Food: Never True Current Housing: I Have Housing Concerned About Future Housing: No Difficulty Paying Gas/Electric Bills: No Difficulty Paying for Meds: No Currently Unemployed: No Education: Master's Degree or Higher Difficulty w/ Childcare or Family Care: No Additional living arrangements comments: Spiritual care concerns: No Meds Home Medications and Allergies Home Medications Medication Instructions Recorded Confirmed Type acetaminophen 500 mg tablet 500 mg PO BID 09/29/19 08/26/22 History (Tylenol Extra Strength) albuterol sulfate 90 mcg/actuation 2 puff inhalation Q4-6H PRN Dyspnea 09/29/19 08/26/22 History aerosol inhaler (ProAir HFA) budesonide-formoterol HFA 160 2 puff inhalation Q12H 09/29/19 08/26/22 History mcg-4.5 mcg/actuation aerosol inhaler (Symbicort) cholecalciferol (vitamin D3) 25 5,000 unit PO DAILY 09/29/19 08/26/22 History mcg (1,000 unit) capsule clopidogrel 75 mg tablet 75 mg PO DAILY 09/29/19 08/26/22 History mecobalamin (vitamin B12) 1,000 1,000 mcg sublingual DAILY 09/29/19 08/26/22 History mcg disintegrating tablet,sublingual nitroglycerin 0.4 mg sublingual 0.4 mg sublingual Q5M PRN Chest 09/29/19 08/26/22 History tablet (Nitrostat) Pain omega-3 acid ethyl esters 1 gram 2 cap PO BID 09/29/19 08/26/22 History capsule (Lovaza) rosuv
[2022-08-26 21:10] VITALS: PULSE 88; RESP 20; O2SAT 98
[2022-08-26 21:44] VITALS: BP 129/77; PULSE 84; RESP 16; TEMP 36.7; O2SAT 93
[2022-08-26] MEDS: LIDOCAINE HCL 2% GEL UROJET 10 ML PKG MUCOUS MEM (22:07)
--- NOTE | 2022-08-26 22:28 | PC.NURSE ---
This patient, Anival Jennings, was admitted to Medical Room 346-01. Patient/family oriented to hospital policies and general routines including ID bracelet, bed and alarms, visiting hours, pain management, procedures, bathroom and other care routines, personal items, smoking policy, room service/diet, and visiting hours. Information on how to activate the Rapid Response Team has been discussed. Patient/Family are encouraged to report perceived risks to care and to ask questions if they do not understand what they are told or what they should do.
[2022-08-27] VITALS (14 sets, daily range): BP systolic 126–162; BP diastolic 59–83; PULSE 73–84; RESP 16–18; TEMP 35.8–37.5; O2SAT 92–100
[2022-08-27] MEDS: CHOLECALCIFEROL 1,000 UNITS TABLET 5000 UNITS PO (08:25)
[2022-08-27] MEDS: ACETAMINOPHEN 500 MG TABLET PO ×2 (08:26→17:28)
[2022-08-27] MEDS: ASPIRIN 81 MG ENTERIC TABLET PO (08:26)
[2022-08-27] MEDS: ROSUVASTATIN 10 MG TABLET 40 MG PO (08:26)
[2022-08-27] MEDS: OPTI-GEN TAB 1 TABLET PO ×2 (08:26→17:28)
[2022-08-27] MEDS: MAGNESIUM OXIDE 400 MG TABLET PO (08:26)
[2022-08-27] MEDS: CLOPIDOGREL BISULFATE 75 MG TABLET PO (08:27)
[2022-08-27] MEDS: CYANOCOBALAMIN 1,000 MCG TABLET 1000 MCG PO (08:27)
[2022-08-27] MEDS: OMEGA 3 POLYUNSAT FATTY ACIDS 1 GM CAP 2 GM PO ×2 (08:27→17:28)
[2022-08-27] MEDS: SERTRALINE HCL 50 MG TABLET 100 MG PO (08:27)
--- NOTE | 2022-08-27 08:43 | WPDURCON ---
Assessment and Plan Assessment and plan (1) Generalized weakness: Code(s): R53.1 - Weakness Status: Acute (2) Urinary retention: Code(s): R33.9 - Retention of urine, unspecified Status: Acute (3) Urethral stricture: Code(s): N35.919 - Unspecified urethral stricture, male, unspecified site Status: Acute Assessment and Plan: Urinary retention likely resulting from urethral stricture in this patient who has had at least 4 artificial urinary sphincters placed and subsequently removed for urethral erosion. Anticipating a complicated urethral I will plan to place a Chiang catheter the assistance of cystoscopy under sedation. Urology Consult Note HPI Date Seen: 08/27/22 Requesting Physician: Blank Villareal MD Primary Care Provider: Levar Montero DO Consult Narrative Narrative: Anival Jennings is a 86 year old male Known to our practice with a long history of urinary tract infections and a very complicated urethra. He is status post initial artificial urinary sphincter placement in July, by Dr. Henry followed by placement of a tandem cuff in July 2003. In 2008 he had cuff erosion prompting removal. The sphincter was replaced in October [address] Blake and again eroded several weeks later. Lastly, he underwent placement of a 4th artificial urinary sphincter in July 2010. Cystoscopy in October 2018, again, showed cuff erosion. He was seen by a reconstructive urologist, Dr. Ventura, at [facility] and, to my knowledge, opted against replacement of another artificial urinary sphincter. He presents now with weakness and mental status changes and a consistent with a probable urinary tract infection. There was difficulty in placing a catheter for culture attainment. Bladder scan shows a bladder volume of 800 cc. Review of Systems Review of Systems: ROS unobtainable: Yes unobtainable due to mental status PMFSH Past Medical History Medical History (Updated 08/27/22 @ 08:48 by Baldo Paul MD) Anemia, unspecified Callus of foot COPD (chronic obstructive pulmonary disease) Deficient knowledge of leg surgery 2 stents in lt leg HLD (hyperlipidemia) HTN (hypertension) Hypogonadism in male Left knee DJD Pain in left knee Primary osteoarthritis of left knee Primary osteoarthritis, right ankle and foot Prostate cancer Right knee DJD Weakness of left lower extremity Surgical History Surgical History H/O heart artery stent H/O prostatectomy History of ankle surgery History of back surgery History of cystoscopy History of neck surgery Status post implantation of artificial urinary sphincter removed, washout and urethral repair Family History Family History Father Cerebrovascular accident Heart attack Alcoholism Hypertension Depression Heart disease Mother Aneurysm Other Family history of arthritis Social History Social History (Updated 08/06/22 @ 11:35 by Janina Tapia MA) Social History: caffeine-coffee daily Smoking packs per day: 1 Smoking cigarettes per day: 20.0 Years smoked: 30 Smoking pack-years: 30.00 Smoking status: Former smoker Additional smoking assessment comments: 1ppd for 30 years stopped 20 years ago Alcohol intake: never Substance use: never Substance use type: does not use Lack of Transportation: No Lack of Food: Never True Current Housing: I Have Housing Concerned About Future Housing: No Difficulty Paying Gas/Electric Bills: No Difficulty Paying for Meds: No Currently Unemployed: No Education: Master's Degree or Higher Difficulty w/ Childcare or Family Care: No Additional living arrangements comments: Spiritual care concerns: No Meds Home Medications and Allergies Home Medications Medication Instructions Record
[2022-08-27] MEDS: IPRATROPIUM BR 0.02% INH SOLN 0.5 MG/2.5 ML VIAL INHALATION ×2 (08:46→20:45)
[2022-08-27] MEDS: ALBUTEROL SULFATE NEB 2.5 MG/3 ML INH INHALATION ×2 (08:46→20:45)
[2022-08-27] MEDS: FLUTICASONE/SALMETEROL 115-21 MCG INHALER 1 PUFF 2 PUFF INHALATION ×2 (08:46→20:45)
--- NOTE | 2022-08-27 11:39 | PM.IMPN ---
Progress Note: A&P Assessment and Plan (1) Acute UTI: Code(s): N39.0 - Urinary tract infection, site not specified Status: Acute Assessment and Plan: Patient empirically treated for urinary tract infection Urology consult noted (2) Urinary retention: Code(s): R33.9 - Retention of urine, unspecified Status: Acute Assessment and Plan: Urology consult (3) Generalized weakness: Code(s): R53.1 - Weakness Status: Acute Assessment and Plan: Likely secondary to acute illness PT OT consult when clinically able to participate in therapy (4) COPD (chronic obstructive pulmonary disease): Code(s): J44.9 - Chronic obstructive pulmonary disease, unspecified Status: Acute Assessment and Plan: Continue home meds Not actively wheezing (5) Degenerative joint disease of knee: Qualifiers: Osteoarthritis type: primary Laterality: left Qualified Code(s): M17.12 - Unilateral primary osteoarthritis, left knee Code(s): M17.10 - Unilateral primary osteoarthritis, unspecified knee Status: Acute Assessment and Plan: Tylenol as needed (6) HTN (hypertension): Qualifiers: Hypertension type: essential hypertension Qualified Code(s): I10 - Essential (primary) hypertension Code(s): I10 - Essential (primary) hypertension Status: Acute Assessment and Plan: Resume home meds Continue to monitor Subjective Date/time seen: 08/27/22 11:39 No new complaints Exam Const: General: cooperative, comfortable, no acute distress, well developed, alert, awake, confusion and average body habitus Nutritional Appearance: average body habitus Orientation/consciousness: oriented to person, oriented to place and confusion Other: Patient does not know why his in the hospital and wants to go home HENMT: Head: normal to inspection, normocephalic and atraumatic Ears: hearing grossly normal bilaterally Face/Nose/Sinus: normal facial exam Face and sinus: normal facial exam Eyes: General: appearance normal, both eyes and all related structures Pupils: Equal, round and reactive pupils present EOM: EOMs intact bilaterally Neck: Neck: full ROM, no lymphadenopathy and no JVD Thyroid: thyroid normal Lymphatic: no lymphadenopathy noted Resp: Effort & Inspection: normal respiratory effort and able to speak in complete sentences Auscultation: clear to auscultation bilaterally Cardio: Jugular venous distension: no JVD Rate: regular rate Rhythm: regular rhythm Heart sounds: S1 normal heart sound present and S2 normal heart sound present : General: Yes deferred Skin: Rashes: no rashes Wounds: no wounds Neuro: General: oriented to person, oriented to place, CN's II-XI intact bilaterally, confusion and Unable to assess gait Cranial nerves: Yes CN's II-XII intact bilaterally and Yes Equal, round and reactive pupils present Cognition (Neuro): abnormal cognition (Confused) Speech: normal speech Gait exam (Neuro): Unable to assess gait Motor exam (neuro): 5/5 motor strength present throughout Extrem: General: normal to inspection, full ROM, no joint enlargement and no pedal edema Objective Data Vital Signs Vital Signs: Vital Signs - 24 hr 08/26/22 12:42 08/26/22 17:56 08/26/22 18:16 Temperature 97.2 F L Pulse Rate 122 H 100 100 Respiratory Rate 16 19 15 Blood Pressure 104/82 139/80 141/86 H Pulse Oximetry 97 94 Oxygen Delivery Room Air Room Air 08/26/22 18:17 08/26/22 21:10 08/26/22 21:44 Temperature 98.1 F Pulse Rate 103 H 88 84 Respiratory Rate 20 20 16 Blood Pressure 129/77 Pulse Oximetry 91 98 93 Oxygen Delivery 08/26/22 22:25 08/27/22 06:00 08/27/22 08:43 Temperature 97.9 F Pulse Rate 80 Respiratory Rate 16 16 Blood Pressure 126/72 Pulse Oximetry 94 Oxygen Delivery Room Air 08/27/22 08:48 08/27/22 08:57 08/27/22 08:00 Temperature Pulse Rate 83 Respiratory Ra
--- NOTE | 2022-08-27 12:41 | WPDHPUPDATE1 ---
History and Physical Update Update Date/Time: 08/27/22 12:41 History and Physical has been reviewed, including an updated exam of the patient. There are NO changes in the patient's condition. Risks, benefits, and alternatives have been discussed and questions answered. Patient agrees to proceed with procedure.
[2022-08-27] MEDS: LACTATED RINGERS 1,000 ML 30 ML IV CONT (13:30)
--- NOTE | 2022-08-27 13:35 | WPDANESEPPF ---
Anes - Initial Pre Proc Eval Procedure: Operation Date: 08/27/22 16:30 Proposed Procedures p Cystoscopy, Urethral Dilatation - Baldo Paul MD Date/Time: 08/27/22 13:35 Surgeon: Blank Villareal MD Pre Op Diagnosis: uti Patient Data Age: 86 Gender: M Height: 1.78 m Weight: 88.2 kg Last Vital Signs Temp 97.9 F 08/27/22 06:00 Pulse 83 08/27/22 08:48 Resp 16 08/27/22 08:57 BP 126/72 08/27/22 06:00 Pulse Ox 94 08/27/22 08:48 O2 Del Method Room Air 08/27/22 08:48 Allergies Allergy/AdvReac Type Severity Reaction Status Date / Time pneumococcal vaccine Allergy Unknown Hypersensit Verified 08/06/22 11:33 ivity Sulfa (Sulfonamide Allergy Unknown Unknown Verified 08/06/22 11:33 Antibiotics) Home Medications Medication Instructions Recorded Confirmed Type acetaminophen 500 mg tablet 500 mg PO BID 09/29/19 08/26/22 History (Tylenol Extra Strength) albuterol sulfate 90 mcg/actuation 2 puff inhalation Q4-6H PRN Dyspnea 09/29/19 08/26/22 History aerosol inhaler (ProAir HFA) budesonide-formoterol HFA 160 2 puff inhalation Q12H 09/29/19 08/26/22 History mcg-4.5 mcg/actuation aerosol inhaler (Symbicort) cholecalciferol (vitamin D3) 25 5,000 unit PO DAILY 09/29/19 08/26/22 History mcg (1,000 unit) capsule clopidogrel 75 mg tablet 75 mg PO DAILY 09/29/19 08/26/22 History mecobalamin (vitamin B12) 1,000 1,000 mcg sublingual DAILY 09/29/19 08/26/22 History mcg disintegrating tablet,sublingual nitroglycerin 0.4 mg sublingual 0.4 mg sublingual Q5M PRN Chest 09/29/19 08/26/22 History tablet (Nitrostat) Pain omega-3 acid ethyl esters 1 gram 2 cap PO BID 09/29/19 08/26/22 History capsule (Lovaza) rosuvastatin 40 mg tablet (Crestor) 40 mg PO DAILY 09/29/19 08/26/22 History tiotropium bromide 18 mcg capsule 1 cap inhalation DAILY 09/29/19 08/26/22 History with inhalation device (Spiriva with HandiHaler) vit C 250 mg-vit E 90 mg-zinc 40 2 tablet PO BID 09/29/19 08/26/22 History mg-copper 1 [id number] capsule (PreserVision AREDS-2) ipratropium 0.5 mg-albuterol 3 mg 3 ml inhalation Q6-8H Shortness Of 03/19/22 08/27/22 History (2.5 mg base)/3 mL nebulization Breath soln magnesium oxide 400 mg PO DAILY 03/19/22 08/26/22 History sertraline 100 mg tablet (Zoloft) 100 mg PO DAILY #90 tabs 07/21/22 08/26/22 Rx aspirin 81 mg tablet,delayed 81 mg PO DAILY 08/26/22 08/26/22 History release Laboratory Tests 08/26/22 08/26/22 17:50 18:24 Lactic Acid 1.7 mmol/L mmol/L (0.7-2.0) Influenza A (RT-PCR) Negative (Negative) Influenza B (RT-PCR) Negative (Negative) RSV (RT-PCR) Negative (Negative) SARS-CoV-2 RNA (RT-PCR) Negative Patient hx anesthesia problems: none Family hx anesthesia problems: none Results Review: All pre-operative results and documents have been reviewed as part of the pre-operative evaluation. [facility] Past Medical History Medical History (Updated 08/27/22 @ 08:48 by Baldo Paul MD) Anemia, unspecified Callus of foot COPD (chronic obstructive pulmonary disease) Deficient knowledge of leg surgery 2 stents in lt leg HLD (hyperlipidemia) HTN (hypertension) Hypogonadism in male Left knee DJD Pain in left knee Primary osteoarthritis of left knee Primary osteoarthritis, right ankle and foot Prostate cancer Right knee DJD Weakness of left lower extremity Surgical History Surgical History H/O heart artery stent H/O prostatectomy History of ankle surgery History of back surgery History of cystoscopy History of neck surgery Status post implantation of artificial urinary sphincter removed, washout and urethral repair Family History Family History Father Cerebrovascular accident Heart attack Alcoholism Hypertension Depression
[2022-08-27] MEDS: LIDOCAINE HCL 2% GEL UROJET 10 ML PKG MUCOUS MEM (14:12)
--- NOTE | 2022-08-27 14:21 | P.OP_ITS ---
Procedure Note - Detailed Date of Procedure 08/27/22 Pre-op Diagnosis Urethral stricture, urinary retention Post-op Diagnosis Same Procedure Performed Cystoscopy with urethral dilatation and difficult catheter placement Surgeon Baldo Paul MD Anesthesia MAC Description of Procedure Patient is brought to the operative suite where he was prepped draped in routine sterile fashion while in dorsal lithotomy position. 2% xylocaine jelly was introduced intraurethrally and systemic sedation is administered per the anesthesia department. Cystoscopy is undertaken with a 19 F rigid cystoscope. He has a very dense mid penile urethral stricture, beyond which I could not pass a cystoscope. I did guide a 0.035 in glidewire into his bladder and dilated the urethra from 8 F to 18 F with Amplatz dilators. Over a superstiff wire was able to place a 16 F [place] tip catheter. Because of the density of the stricture I will plan to leave that catheter for at least 2 weeks. Estimated Blood Loss 0 Drains Yes Packing No Pathology None sent Complications No immediate complications Condition Stable
[2022-08-27 15:36] LABS: Add Urine Microscopic? YES; Appearance Urine Cloudy (Clear); Bilirubin Urine 1+ (Negative); Blood Urine 3+ (Negative); Glucose Urine UA Negative (Negative); Ketones Urine 1+ mg/dL (Negative); Leukocyte Esterase Ur Negative LEU/UL (Negative); Nitrate Urine Negative (Negative); Protein Urine 2+ mg/dL (Negative); Specific Grav Ur 1.025 (1.001-1.035); Urobilinogen Urine 0.2 mg/dL (<2.0); pH Urine 5.5 (5.0-9.0)
[2022-08-27 15:39] LABS: Color Urine Yellow (Yellow)
[2022-08-27 15:51] LABS: Bacteria Urine Trace /hpf; Mucus Urine Rare /lpf; RBC Urine >75 /hpf (0-2); Squamous Epithelial Cell Urine Few /hpf (Few)
[2022-08-27] MEDS: ACETAMINOPHEN 500 MG TABLET 1000 MG PO (21:58)
[2022-08-28 04:56] VITALS: BP 153/75; PULSE 78; RESP 16; TEMP 36.8; O2SAT 94
[2022-08-28 06:01] LABS: Basophils Percent Auto 0.4 % (0.2-1.2); Eosinophils Absolute Auto 0.2 K/mm3 (0-0.3); Eosinophils Percent Auto 2.6 % (0-4.4); Hematocrit 40.4 % (42.0-52.0); Hemoglobin 12.9 g/dL (14.0-18.0); Immature Granulocyte Absolute 0.03 K/mm3 (0.00-0.031); Immature Granulocyte Percent A 0.3 % (0-0.5); Lymphocytes Absolute Auto 1.27 K/mm3 (0.9-3.2); Lymphocytes Percent Auto 14.3 % (18.3-44.2); Mean Corpuscular HGB Conc 31.9 g/dl (32-36); Mean Corpuscular Hemoglobin 28.9 pg (26-34); Mean Corpuscular Volume 90.6 fl (80-100); Mean Platelet Volume 9.8 fl (7.4-10.4); Monocytes Absolute Auto 0.7 K/mm3 (0.1-0.6); Monocytes Percent Auto 7.9 % (2.6-8.5); Neutrophils Absolute Auto 6.6 K/mm3 (1.3-6.7); Neutrophils Percent Auto 74.5 % (45.5-73.1); Platelet Count Result 157 k/mm3 (150-375); Red Blood Count 4.46 M/mm3 (4.6-6.20); Red Cell Distribution Width 13.1 % (11.5-14.5); White Blood Count 8.9 K/mm3 (4.5-10.0)
[2022-08-28 06:10] LABS: Anion Gap 10 mmol/L (8-16); Blood Urea Nitrogen 11 mg/dL (9-20); Calcium 8.5 mg/dL (8.4-10.2); Carbon Dioxide 24 mmol/L (22-30); Chloride 98 mmol/L (98-107); Estimated CRCL calculation 70 ml/min; Estimated Glomerular Filt Rate > 60; Glucose 114 mg/dL (65-110); Sodium 132 mmol/L (137-145)
--- NOTE | 2022-08-28 07:20 | WPDUROPN2 ---
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 indwelling catheter for at least 2 weeks Subjective Subjective Date/Time Seen: 08/28/22 07:20 Tolerating catheter well Review of Systems Cardiovascular: Cardiovascular: Denies chest pain, Denies lightheadedness, Denies palpitations and Denies dyspnea Respiratory: Respiratory: Denies dyspnea Gastrointestinal: Gastrointestinal: Denies diarrhea, Denies nausea and Denies vomiting Genitourinary: Genitourinary: Denies hematuria and Denies dysuria Endocrine: Endocrine: Denies palpitations Exam Const: General: no acute distress Resp: Effort & Inspection: normal respiratory effort GI: Inspection: non-distended GI Palp: No abdominal tenderness and No Guarding due to palpation present (GI) Auscultation: normal bowel sounds Urinary Catheter: Urinary Catheter: patent and draining and urine clear Objective Data Vital Signs Vital Signs: Vital Signs - 24 hr 08/27/22 08:43 08/27/22 08:48 08/27/22 08:57 Temperature Pulse Rate 83 Respiratory Rate 16 16 16 Blood Pressure Pulse Oximetry 94 Oxygen Delivery Room Air Oxygen Flow Rate 08/27/22 08:00 08/27/22 13:30 08/27/22 14:28 Temperature 98.9 F 99.5 F Pulse Rate 82 80 Respiratory Rate 16 17 Blood Pressure 162/78 H 132/74 Pulse Oximetry 93 100 Oxygen Delivery Room Air Room Air Simple Face Mask Oxygen Flow Rate 10 08/27/22 14:30 08/27/22 14:45 08/27/22 15:00 Temperature Pulse Rate 75 78 73 Respiratory Rate 16 17 16 Blood Pressure 133/80 149/73 H 154/83 H Pulse Oximetry 100 95 98 Oxygen Delivery Simple Face Mask Room Air Room Air Oxygen Flow Rate 10 08/27/22 15:15 08/27/22 20:45 08/27/22 20:45 Temperature 96.5 F L Pulse Rate 81 82 82 Respiratory Rate 16 16 Blood Pressure 160/81 H Pulse Oximetry 99 92 Oxygen Delivery Room Air Oxygen Flow Rate 08/27/22 21:00 08/27/22 20:00 08/27/22 21:54 Temperature 98.7 F Pulse Rate 79 79 84 Respiratory Rate 18 18 16 Blood Pressure 139/59 L Pulse Oximetry 92 93 Oxygen Delivery Room Air Oxygen Flow Rate 08/28/22 04:56 Temperature 98.2 F Pulse Rate 78 Respiratory Rate 16 Blood Pressure 153/75 H Pulse Oximetry 94 Oxygen Delivery Oxygen Flow Rate Intake/Output Intake/Output: Intake & Output 08/25/22 08/26/22 08/27/22 08/28/22 23:59 23:59 23:59 23:59 Intake Total 1050 680 250 Output Total 500 Balance 1050 680 -250 Meds/Results Medications: Active Medications Generic Name Dose Route Start Last Admin Trade Name Freq PRN Reason Stop Dose Admin Acetaminophen 500 mg 08/27/22 09:00 08/27/22 17:28 Acetaminophen 500 Mg Tablet PO 500 mg BID MANUEL Administration Acetaminophen 500 mg 08/27/22 22:00 Acetaminophen 500 Mg Tablet PO Q6H PRN Mild Pain (1-3) or Fever Albuterol 2 puff 08/27/22 00:25 Albuterol Sulfate (*Sp) Aerosol 1 Puff INHALATION Q4-6H PRN Dyspnea Albuterol 2.5 mg 08/27/22 08:00 08/28/22 02:58 Albuterol Sulfate Neb 2.5 Mg/3 Ml Inh INHALATION Not Given Q6HRT [facility] Aspirin 81 mg 08/27/22 09:00 08/27/22 08:26 Aspirin 81 Mg Enteric Tablet PO 81 mg DAILY MANUEL Administration Clopidogrel Bisulfate 75 mg 08/27/22 09:00 08/27/22 08:27 Clopidogrel Bisulfate 75 Mg Tablet PO 75 mg DAILY MANUEL Administration Cyanocobalamin 1,000 mcg 08/27/22 09:00 08/27/22 08:27 Cyanocobalamin 1,000 Mcg Tablet PO 1,000 mcg QAM MANUEL Administration Fentanyl Citrate 25 mcg 08/27/22 13:36 Fentanyl Citrate Inj (*Crx) 100 Mcg/2 Ml Vial IV PUSH Q2M PRN Pain Fish Oil 2 gm 08/27/22 09:00 08/27/22 17:28 [place] 3 Polyunsat Fatty Acids 1 Gm Cap PO 2 gm BID MANUEL Administration Ipratropium [place] 0.5 mg 08/01
[2022-08-28] MEDS: OPTI-GEN TAB 1 TABLET PO ×2 (08:35→16:52)
[2022-08-28] MEDS: ROSUVASTATIN 10 MG TABLET 40 MG PO (08:35)
[2022-08-28] MEDS: OMEGA 3 POLYUNSAT FATTY ACIDS 1 GM CAP 2 GM PO ×2 (08:35→16:52)
[2022-08-28] MEDS: SERTRALINE HCL 50 MG TABLET 100 MG PO (08:35)
[2022-08-28] MEDS: CHOLECALCIFEROL 1,000 UNITS TABLET 5000 UNITS PO (08:36)
[2022-08-28] MEDS: CYANOCOBALAMIN 1,000 MCG TABLET 1000 MCG PO (08:36)
[2022-08-28] MEDS: ASPIRIN 81 MG ENTERIC TABLET PO (08:36)
[2022-08-28] MEDS: ACETAMINOPHEN 500 MG TABLET PO ×2 (08:36→16:51)
[2022-08-28] MEDS: MAGNESIUM OXIDE 400 MG TABLET PO (08:36)
[2022-08-28] MEDS: CLOPIDOGREL BISULFATE 75 MG TABLET PO (08:36)
--- NOTE | 2022-08-28 12:25 | P.PNAN_ITS ---
Anes - Prog Note Post-Op Date/Time: 08/28/22 12:25 Vital Signs: Last Vital Signs Temp 36.8 C 08/28/22 04:56 Pulse 78 08/28/22 04:56 Resp 16 08/28/22 04:56 BP 153/75 H 08/28/22 04:56 Pulse Ox 94 08/28/22 04:56 O2 Del Method Room Air 08/28/22 08:30 O2 Flow Rate 10 08/27/22 14:30 Pain Score (VAS): 0 I/O: Intake & Output 08/27/22 08/28/22 08/28/22 23:59 07:59 15:59 Intake Total 340 250 120 Output Total 500 Balance 340 -250 120 Laboratory Tests 08/28/22 05:36 08/28/22 05:36 08/27/22 08/28/22 08/28/22 15:21 05:36 05:36 WBC 8.9 RBC 4.46 L Hgb 12.9 L Hct 40.4 L MCV 90.6 MCH 28.9 MCHC 31.9 L RDW 13.1 Plt Count 157 MPV 9.8 Immature Gran % (Auto) 0.3 Neut % (Auto) 74.5 H Lymph % (Auto) 14.3 L Terry % (Auto) 7.9 Eos % (Auto) 2.6 Baso % (Auto) 0.4 Lymph # (Auto) 1.27 Terry # (Auto) 0.7 H Eos # (Auto) 0.2 Baso # (Auto) 0.0 Abs Immat Gran (auto) 0.03 Absolute Neuts (auto) 6.6 Absolute Nucleated RBC 0.0 Nucleated RBC % 0.0 Sodium 132 L Potassium 4.0 Chloride 98 Carbon Dioxide 24 Anion Gap 10 BUN 11 Creatinine 0.70 Estim Creat Clear Calc 70 Estimated GFR > 60 Glucose 114 H Calcium 8.5 Urine Color Yellow Urine Appearance Cloudy H Urine pH 5.5 Ur Specific [place] 1.025 Urine Protein 2+ H Urine Glucose (UA) Negative Urine Ketones 1+ H Ur Blood (Man) 3+ H Urine Nitrate Negative Urine Bilirubin 1+ H Urine Urobilinogen 0.2 Leukocyte Esterase Rfl Negative Urine RBC >75 H Urine WBC 10-15 H Ur Squamous Epith Cells Few Urine Bacteria Trace Urine Mucus Rare Microbiology 08/26/22 17:50 Blood Blood Culture - Preliminary 08/26/22 17:50 Blood Blood Culture - Preliminary Patient Feedback: Patient satisfied with anesthetic care.
--- NOTE | 2022-08-28 13:30 | PM.IMPN ---
Progress Note: A&P Assessment and Plan (1) Acute UTI: Code(s): N39.0 - Urinary tract infection, site not specified Status: Acute (2) Urinary retention: Code(s): R33.9 - Retention of urine, unspecified Status: Acute (3) Generalized weakness: Code(s): R53.1 - Weakness Status: Acute (4) COPD (chronic obstructive pulmonary disease): Code(s): J44.9 - Chronic obstructive pulmonary disease, unspecified Status: Acute (5) Degenerative joint disease of knee: Qualifiers: Osteoarthritis type: primary Laterality: left Qualified Code(s): M17.12 - Unilateral primary osteoarthritis, left knee Code(s): M17.10 - Unilateral primary osteoarthritis, unspecified knee Status: Acute (6) HTN (hypertension): Qualifiers: Hypertension type: essential hypertension Qualified Code(s): I10 - Essential (primary) hypertension Code(s): I10 - Essential (primary) hypertension Status: Acute Subjective Date/time seen: 08/28/22 13:30 No complaints Exam Const: General: cooperative, comfortable, no acute distress, well developed, alert, awake, confusion and average body habitus Nutritional Appearance: average body habitus Orientation/consciousness: oriented to person, oriented to place and confusion HENMT: Head: normal to inspection, normocephalic and atraumatic Ears: hearing grossly normal bilaterally Face/Nose/Sinus: normal facial exam Face and sinus: normal facial exam Eyes: General: appearance normal, both eyes and all related structures Pupils: Equal, round and reactive pupils present EOM: EOMs intact bilaterally Neck: Neck: full ROM, no lymphadenopathy and no JVD Thyroid: thyroid normal Lymphatic: no lymphadenopathy noted Resp: Effort & Inspection: normal respiratory effort and able to speak in complete sentences Auscultation: clear to auscultation bilaterally Cardio: Jugular venous distension: no JVD Rate: regular rate Rhythm: regular rhythm Heart sounds: S1 normal heart sound present and S2 normal heart sound present GI: Inspection: non-distended Auscultation: normal bowel sounds : General: Yes deferred Urinary Catheter: Urinary Catheter: patent and draining and urine clear Skin: Rashes: no rashes Wounds: no wounds Neuro: General: oriented to person, oriented to place, CN's II-XI intact bilaterally, confusion and Unable to assess gait Cranial nerves: Yes CN's II-XII intact bilaterally and Yes Equal, round and reactive pupils present Cognition (Neuro): abnormal cognition (Confused) Speech: normal speech Gait exam (Neuro): Unable to assess gait Motor exam (neuro): 5/5 motor strength present throughout Extrem: General: normal to inspection, full ROM, no joint enlargement and no pedal edema Objective Data Vital Signs Vital Signs: Vital Signs - 24 hr 08/27/22 14:28 08/27/22 14:30 08/27/22 14:45 Temperature 99.5 F Pulse Rate 80 75 78 Respiratory Rate 17 16 17 Blood Pressure 132/74 133/80 149/73 H Pulse Oximetry 100 100 95 Oxygen Delivery Simple Face Mask Simple Face Mask Room Air Oxygen Flow Rate 10 10 08/27/22 15:00 08/27/22 15:15 08/27/22 20:45 Temperature 96.5 F L Pulse Rate 73 81 82 Respiratory Rate 16 16 16 Blood Pressure 154/83 H 160/81 H Pulse Oximetry 98 99 Oxygen Delivery Room Air Oxygen Flow Rate 08/27/22 20:45 08/27/22 21:00 08/27/22 20:00 Temperature Pulse Rate 82 79 79 Respiratory Rate 18 18 Blood Pressure Pulse Oximetry 92 92 Oxygen Delivery Room Air Room Air Oxygen Flow Rate 08/27/22 21:54 08/28/22 04:56 08/28/22 08:30 Temperature 98.7 F 98.2 F Pulse Rate 84 78 Respiratory Rate 16 16 Blood Pressure 139/59 L 153/75 H Pulse Oximetry 93 94 Oxygen Delivery Room Air Oxygen Flow Rate Intake/Output Intake/Output: Intake & Output 08/25/22 08/26/22 08/27/22 08/28/22 23:59 23:59 23:59 23:59 Intake Total 1050 680 370 Output Total 900 Ba
[2022-08-28 14:00] VITALS: BP 123/86; PULSE 84; RESP 18; TEMP 36.6; O2SAT 92
[2022-08-28] MEDS: ALBUTEROL SULFATE NEB 2.5 MG/3 ML INH INHALATION ×2 (14:18→22:08)
[2022-08-28 14:19] VITALS: PULSE 86; RESP 18
[2022-08-28] MEDS: IPRATROPIUM BR 0.02% INH SOLN 0.5 MG/2.5 ML VIAL INHALATION ×2 (14:19→22:08)
[2022-08-28 20:00] VITALS: PULSE 86; RESP 18; O2SAT 92
[2022-08-28 20:12] VITALS: BP 105/88; PULSE 86; RESP 18; TEMP 36.4; O2SAT 92
[2022-08-28] MEDS: FLUTICASONE/SALMETEROL 115-21 MCG INHALER 1 PUFF 2 PUFF INHALATION (22:08)
[2022-08-28 22:10] VITALS: PULSE 89; RESP 16; O2SAT 95
[2022-08-29] VITALS (9 sets, daily range): BP systolic 112–136; BP diastolic 69–96; PULSE 78–98; RESP 16–20; TEMP 36.4–36.8; O2SAT 91–97; BMI 10.0
[2022-08-29] MEDS: IPRATROPIUM BR 0.02% INH SOLN 0.5 MG/2.5 ML VIAL INHALATION ×3 (08:48→20:02)
[2022-08-29] MEDS: ALBUTEROL SULFATE NEB 2.5 MG/3 ML INH INHALATION ×3 (08:48→20:02)
[2022-08-29] MEDS: FLUTICASONE/SALMETEROL 115-21 MCG INHALER 1 PUFF 2 PUFF INHALATION ×2 (08:49→20:02)
[2022-08-29] MEDS: ROSUVASTATIN 10 MG TABLET 40 MG PO (09:27)
[2022-08-29] MEDS: SERTRALINE HCL 50 MG TABLET 100 MG PO (09:27)
[2022-08-29] MEDS: ACETAMINOPHEN 500 MG TABLET PO ×3 (09:27→21:40)
[2022-08-29] MEDS: CYANOCOBALAMIN 1,000 MCG TABLET 1000 MCG PO (09:27)
[2022-08-29] MEDS: MAGNESIUM OXIDE 400 MG TABLET PO (09:28)
[2022-08-29] MEDS: CHOLECALCIFEROL 1,000 UNITS TABLET 5000 UNITS PO (09:28)
[2022-08-29] MEDS: CLOPIDOGREL BISULFATE 75 MG TABLET PO (09:28)
[2022-08-29] MEDS: OPTI-GEN TAB 1 TABLET PO ×2 (09:28→17:30)
[2022-08-29] MEDS: OMEGA 3 POLYUNSAT FATTY ACIDS 1 GM CAP 2 GM PO ×2 (09:28→17:30)
[2022-08-29] MEDS: ASPIRIN 81 MG ENTERIC TABLET PO (09:29)
--- NOTE | 2022-08-29 13:52 | PM.IMPN ---
Progress Note: A&P Assessment and Plan (1) Acute UTI: Code(s): N39.0 - Urinary tract infection, site not specified Status: Acute (2) Urinary retention: Code(s): R33.9 - Retention of urine, unspecified Status: Acute (3) Generalized weakness: Code(s): R53.1 - Weakness Status: Acute (4) COPD (chronic obstructive pulmonary disease): Code(s): J44.9 - Chronic obstructive pulmonary disease, unspecified Status: Acute (5) Degenerative joint disease of knee: Qualifiers: Osteoarthritis type: primary Laterality: left Qualified Code(s): M17.12 - Unilateral primary osteoarthritis, left knee Code(s): M17.10 - Unilateral primary osteoarthritis, unspecified knee Status: Acute (6) HTN (hypertension): Qualifiers: Hypertension type: essential hypertension Qualified Code(s): I10 - Essential (primary) hypertension Code(s): I10 - Essential (primary) hypertension Status: Acute Subjective Date/time seen: 08/29/22 13:52 No complaints Exam Const: General: cooperative, comfortable, no acute distress, well developed, alert, awake, confusion and average body habitus Nutritional Appearance: average body habitus Orientation/consciousness: oriented to person, oriented to place and confusion HENMT: Head: normal to inspection, normocephalic and atraumatic Ears: hearing grossly normal bilaterally Face/Nose/Sinus: normal facial exam Face and sinus: normal facial exam Eyes: General: appearance normal, both eyes and all related structures Pupils: Equal, round and reactive pupils present EOM: EOMs intact bilaterally Neck: Neck: full ROM, no lymphadenopathy and no JVD Thyroid: thyroid normal Lymphatic: no lymphadenopathy noted Resp: Effort & Inspection: normal respiratory effort and able to speak in complete sentences Auscultation: clear to auscultation bilaterally Cardio: Jugular venous distension: no JVD Rate: regular rate Rhythm: regular rhythm Heart sounds: S1 normal heart sound present and S2 normal heart sound present GI: Inspection: non-distended Auscultation: normal bowel sounds : General: Yes deferred Urinary Catheter: Urinary Catheter: patent and draining and urine clear Skin: Rashes: no rashes Wounds: no wounds Neuro: General: oriented to person, oriented to place, CN's II-XI intact bilaterally, confusion and Unable to assess gait Cranial nerves: Yes CN's II-XII intact bilaterally and Yes Equal, round and reactive pupils present Cognition (Neuro): abnormal cognition (Confused) Speech: normal speech Gait exam (Neuro): Unable to assess gait Motor exam (neuro): 5/5 motor strength present throughout Extrem: General: normal to inspection, full ROM, no joint enlargement and no pedal edema Objective Data Vital Signs Vital Signs: Vital Signs - 24 hr 08/28/22 14:19 08/28/22 14:00 08/28/22 20:12 Temperature 97.9 F 97.6 F Pulse Rate 86 84 86 Respiratory Rate 18 18 18 Blood Pressure 123/86 105/88 Pulse Oximetry 92 92 Oxygen Delivery 08/28/22 20:00 08/28/22 22:10 08/28/22 22:10 Temperature Pulse Rate 86 89 89 Respiratory Rate 18 16 Blood Pressure Pulse Oximetry 92 95 Oxygen Delivery Room Air Room Air 08/29/22 03:53 08/29/22 08:45 08/29/22 08:45 Temperature 97.6 F Pulse Rate 98 89 89 Respiratory Rate 17 16 Blood Pressure 112/70 Pulse Oximetry 92 91 Oxygen Delivery Room Air Intake/Output Intake/Output: Intake & Output 08/26/22 08/27/22 08/28/22 08/29/22 23:59 23:59 23:59 23:59 Intake Total 6285 685 4362 960 Output Total 1100 900 Balance 1050 680 150 60 Meds/Results Medications: Active Medications Generic Name Dose Route Start Last Admin Trade Name Freq PRN Reason Stop Dose Admin Acetaminophen 500 mg 08/27/22 09:00 08/29/22 09:27 Acetaminophen 500 Mg Tablet PO 500 mg BID MANUEL Administration Acetaminophen 500 mg 08/27/22 22:00 Acetaminophen 50
[2022-08-30] VITALS (9 sets, daily range): BP systolic 140–141; BP diastolic 79–80; PULSE 73–89; RESP 18–20; TEMP 36.3–36.4; O2SAT 91–96
[2022-08-30] MEDS: IPRATROPIUM BR 0.02% INH SOLN 0.5 MG/2.5 ML VIAL INHALATION ×3 (02:50→13:32)
[2022-08-30] MEDS: ALBUTEROL SULFATE NEB 2.5 MG/3 ML INH INHALATION ×3 (02:50→13:33)
[2022-08-30] MEDS: FLUTICASONE/SALMETEROL 115-21 MCG INHALER 1 PUFF 2 PUFF INHALATION (08:00)
[2022-08-30] MEDS: CYANOCOBALAMIN 1,000 MCG TABLET 1000 MCG PO (09:32)
[2022-08-30] MEDS: CLOPIDOGREL BISULFATE 75 MG TABLET PO (09:32)
[2022-08-30] MEDS: SERTRALINE HCL 50 MG TABLET 100 MG PO (09:33)
[2022-08-30] MEDS: MAGNESIUM OXIDE 400 MG TABLET PO (09:33)
[2022-08-30] MEDS: ACETAMINOPHEN 500 MG TABLET PO (09:33)
[2022-08-30] MEDS: OPTI-GEN TAB 1 TABLET PO (09:33)
[2022-08-30] MEDS: ASPIRIN 81 MG ENTERIC TABLET PO (09:33)
[2022-08-30] MEDS: ROSUVASTATIN 10 MG TABLET 40 MG PO (09:33)
[2022-08-30] MEDS: CHOLECALCIFEROL 1,000 UNITS TABLET 5000 UNITS PO (09:34)
[2022-08-30] MEDS: OMEGA 3 POLYUNSAT FATTY ACIDS 1 GM CAP 2 GM PO (09:34)
--- NOTE | 2022-08-30 13:05 | PM.IMPN ---
Progress Note: A&P Assessment and Plan (1) Acute UTI: Code(s): N39.0 - Urinary tract infection, site not specified Status: Acute (2) Urinary retention: Code(s): R33.9 - Retention of urine, unspecified Status: Acute (3) Generalized weakness: Code(s): R53.1 - Weakness Status: Acute (4) COPD (chronic obstructive pulmonary disease): Code(s): J44.9 - Chronic obstructive pulmonary disease, unspecified Status: Acute (5) Degenerative joint disease of knee: Qualifiers: Osteoarthritis type: primary Laterality: left Qualified Code(s): M17.12 - Unilateral primary osteoarthritis, left knee Code(s): M17.10 - Unilateral primary osteoarthritis, unspecified knee Status: Acute (6) HTN (hypertension): Qualifiers: Hypertension type: essential hypertension Qualified Code(s): I10 - Essential (primary) hypertension Code(s): I10 - Essential (primary) hypertension Status: Acute Subjective Date/time seen: 08/30/22 13:05 No complaints Exam Const: General: cooperative, comfortable, no acute distress, well developed, alert, awake, confusion and average body habitus Nutritional Appearance: average body habitus Orientation/consciousness: oriented to person, oriented to place and confusion HENMT: Head: normal to inspection, normocephalic and atraumatic Ears: hearing grossly normal bilaterally Face/Nose/Sinus: normal facial exam Face and sinus: normal facial exam Eyes: General: appearance normal, both eyes and all related structures Pupils: Equal, round and reactive pupils present EOM: EOMs intact bilaterally Neck: Neck: full ROM, no lymphadenopathy and no JVD Thyroid: thyroid normal Lymphatic: no lymphadenopathy noted Resp: Effort & Inspection: normal respiratory effort and able to speak in complete sentences Auscultation: clear to auscultation bilaterally Cardio: Jugular venous distension: no JVD Rate: regular rate Rhythm: regular rhythm Heart sounds: S1 normal heart sound present and S2 normal heart sound present GI: Inspection: non-distended Auscultation: normal bowel sounds : General: Yes deferred Urinary Catheter: Urinary Catheter: patent and draining and urine clear Skin: Rashes: no rashes Wounds: no wounds Neuro: General: oriented to person, oriented to place, CN's II-XI intact bilaterally, confusion and Unable to assess gait Cranial nerves: Yes CN's II-XII intact bilaterally and Yes Equal, round and reactive pupils present Cognition (Neuro): abnormal cognition (Confused) Speech: normal speech Gait exam (Neuro): Unable to assess gait Motor exam (neuro): 5/5 motor strength present throughout Extrem: General: normal to inspection, full ROM, no joint enlargement and no pedal edema Objective Data Vital Signs Vital Signs: Vital Signs - 24 hr 08/29/22 13:30 08/29/22 14:08 08/29/22 14:15 Temperature 98.3 F Pulse Rate 86 84 Respiratory Rate 16 16 Blood Pressure 128/96 H Pulse Oximetry 94 Oxygen Delivery Room Air 08/29/22 14:25 08/29/22 20:03 08/29/22 20:08 Temperature Pulse Rate 90 78 Respiratory Rate 16 18 Blood Pressure Pulse Oximetry 91 Oxygen Delivery Room Air 08/29/22 22:00 08/29/22 20:00 08/30/22 02:50 Temperature 97.8 F Pulse Rate 81 73 Respiratory Rate 20 18 Blood Pressure 136/69 Pulse Oximetry 97 Oxygen Delivery Room Air 08/29/22 20:15 08/30/22 03:02 08/30/22 04:30 Temperature 97.3 F L Pulse Rate 80 77 83 Respiratory Rate 18 18 20 Blood Pressure 140/79 Pulse Oximetry 96 Oxygen Delivery 08/30/22 07:50 08/30/22 07:50 08/30/22 08:01 Temperature Pulse Rate 88 88 75 Respiratory Rate 18 18 Blood Pressure Pulse Oximetry 91 Oxygen Delivery Room Air 08/30/22 09:30 Temperature Pulse Rate 75 Respiratory Rate 18 Blood Pressure Pulse Oximetry 92 Oxygen Delivery Room Air Intake/Output Intake/Output: Intake & Outpu
[2022-08-30] MEDS: UMECLIDINIUM BROMIDE 62.5 MCG ELLIPTA 1 PUFF INHALATION (13:40)
--- NOTE | 2022-08-30 13:49 | PM.DS ---
DS: Admitting Diagnosis Discharge Date August 30, 2022 Admitting Diagnosis Urethral stricture DS: Discharge Diagnosis Discharge Diagnosis (1) Acute UTI: Code(s): N39.0 - Urinary tract infection, site not specified Status: Acute (2) Urinary retention: Code(s): R33.9 - Retention of urine, unspecified Status: Acute (3) Generalized weakness: Code(s): R53.1 - Weakness Status: Acute (4) COPD (chronic obstructive pulmonary disease): Code(s): J44.9 - Chronic obstructive pulmonary disease, unspecified Status: Acute (5) Degenerative joint disease of knee: Qualifiers: Osteoarthritis type: primary Laterality: left Qualified Code(s): M17.12 - Unilateral primary osteoarthritis, left knee Code(s): M17.10 - Unilateral primary osteoarthritis, unspecified knee Status: Acute (6) HTN (hypertension): Qualifiers: Hypertension type: essential hypertension Qualified Code(s): I10 - Essential (primary) hypertension Code(s): I10 - Essential (primary) hypertension Status: Acute DS: Summary Hospital Course Hospital Course: This 86-year-old gentleman came in with urinary complaints found have urethral stricture. Chiang placed by Urology. Can be discharged to skilled facility for weakness. Will need to follow up with Urology Time Spent with Patient Time attestation: Total time spent providing and/or coordinating discharge services: Exam Const: General: cooperative, comfortable, no acute distress, well developed, alert, awake, confusion and average body habitus Nutritional Appearance: average body habitus Orientation/consciousness: oriented to person, oriented to place and confusion HENMT: Head: normal to inspection, normocephalic and atraumatic Ears: hearing grossly normal bilaterally Face/Nose/Sinus: normal facial exam Face and sinus: normal facial exam Eyes: General: appearance normal, both eyes and all related structures Pupils: Equal, round and reactive pupils present EOM: EOMs intact bilaterally Neck: Neck: full ROM, no lymphadenopathy and no JVD Thyroid: thyroid normal Lymphatic: no lymphadenopathy noted Resp: Effort & Inspection: normal respiratory effort and able to speak in complete sentences Auscultation: clear to auscultation bilaterally Cardio: Jugular venous distension: no JVD Rate: regular rate Rhythm: regular rhythm Heart sounds: S1 normal heart sound present and S2 normal heart sound present GI: Inspection: non-distended Auscultation: normal bowel sounds : General: Yes deferred Urinary Catheter: Urinary Catheter: patent and draining and urine clear Skin: Rashes: no rashes Wounds: no wounds Neuro: General: oriented to person, oriented to place, CN's II-XI intact bilaterally, confusion and Unable to assess gait Cranial nerves: Yes CN's II-XII intact bilaterally and Yes Equal, round and reactive pupils present Cognition (Neuro): abnormal cognition (Confused) Speech: normal speech Gait exam (Neuro): Unable to assess gait Motor exam (neuro): 5/5 motor strength present throughout Extrem: General: normal to inspection, full ROM, no joint enlargement and no pedal edema DS: Data Data Completed and Pending Labs on day of discharge: Preliminary micro results at discharge 08/26/22 17:50 Blood Culture - Preliminary Blood 08/26/22 17:50 Blood Culture - Preliminary Blood Discharge Plan Discharge Attending physician on discharge: Jorge Wilkes Consulting providers: Baldo Paul Discharging Clinician: Jorge Wilkes Patient Disposition: SNF Activity: no preference Diet: as tolerated Patient Instructions: Antibiotic Form Stand Alone Forms: General Discharge Information Follow-up/Referrals: Baldo Paul MD [Physician] - Levar Montero DO [Primary Care Provider] - Discharge Medications: Continued ipratropium-albuterol 0.5 mg-3 mg(2.5 mg base
[2022-08-30 15:48] LABS: EDCOVIDSCREEN Negative (Negative)
== END 2022-08-30 16:45 | DRG 690 ==
LOC: ANHED 20:41 → ANH3MED 21:15
PROVIDERS: Family Medicine; Urology; Admitting Provider Internal Medicine; Emergency Provider Emergency Medicine; PCP Internal Medicine; Visit Provider Chiropractor
PROC: 0T7D8ZZ Dilation of Urethra, Via Natural or Artificial Opening Endoscopic (ICD-10-PCS; CPT 52281; principal; 2022-08-27 16:30)
DX: N39.0 Urinary tract infection, site not specified (principal); N35.919 Unspecified urethral stricture, male, unspecified site; M17.12 Unilateral primary osteoarthritis, left knee; I10 Essential (primary) hypertension; J43.9 Emphysema, unspecified; E78.5 Hyperlipidemia, unspecified; Z20.822 Contact with and (suspected) exposure to COVID-19; Z85.46 Personal history of malignant neoplasm of prostate; Z95.5 Presence of coronary angioplasty implant and graft; Z87.891 Personal history of nicotine dependence; Z79.51 Long term (current) use of inhaled steroids; Z79.82 Long term (current) use of aspirin; Z79.899 Other long term (current) drug therapy; Z88.2 Allergy status to sulfonamides; Z88.7 Allergy status to serum and vaccine; Z82.49 Family history of ischemic heart disease and other diseases of the circulatory system; Z81.1 Family history of alcohol abuse and dependence; Z81.8 Family history of other mental and behavioral disorders; Z82.61 Family history of arthritis
CPT/HCPCS: 36415; 71046; 73630; 80048; 80053; 81001; 83605; 85025; 87040; 87086; 87426; 87637; 93005; 94640; 96365; 97161; 97165; 97530; 97535; 99199; 99285; A9270; C1726; C1769; C9803; J0696; J2405; J2704; J3010; J7030; J7120

== ENCOUNTER 2022-09-01 06:21 | Inpatient (IN) | payer MEDICARE, SELFPAY ==
[2022-09-01] VITALS (20 sets, daily range): BP systolic 101–145; BP diastolic 57–85; PULSE 82–99; RESP 16–23; TEMP 35.9–36.9; O2SAT 92–97; BMI 28.3
[2022-09-01 06:38] LABS: Basophils Absolute Auto 0.1 K/mm3 (0.0-0.1); Basophils Percent Auto 0.5 % (0.2-1.2); Eosinophils Absolute Auto 0.1 K/mm3 (0-0.3); Eosinophils Percent Auto 0.7 % (0-4.4); Hematocrit 43.8 % (42.0-52.0); Hemoglobin 14.3 g/dL (14.0-18.0); Immature Granulocyte Absolute 0.08 K/mm3 (0.00-0.031); Immature Granulocyte Percent A 0.6 % (0-0.5); Lymphocytes Absolute Auto 1.43 K/mm3 (0.9-3.2); Lymphocytes Percent Auto 10.4 % (18.3-44.2); Mean Corpuscular HGB Conc 32.6 g/dl (32-36); Mean Corpuscular Hemoglobin 28.8 pg (26-34); Mean Corpuscular Volume 88.1 fl (80-100); Mean Platelet Volume 9.6 fl (7.4-10.4); Monocytes Absolute Auto 1.1 K/mm3 (0.1-0.6); Monocytes Percent Auto 8.1 % (2.6-8.5); Neutrophils Percent Auto 79.7 % (45.5-73.1); Platelet Count Result 300 k/mm3 (150-375); Red Blood Count 4.97 M/mm3 (4.6-6.20); White Blood Count 13.8 K/mm3 (4.5-10.0)
--- NOTE | 2022-09-01 06:46 | PC.NURSE ---
Patient depends changed, a large dark red bloody stool with clots noted. ERP notified. Patient denies any pain.
[2022-09-01 06:47] LABS: Alanine Aminotransferase 19 U/L (6-50); Albumin Level 4.2 g/dL (3.5-5.1); Alkaline Phosphatase 70 U/L (38-126); Anion Gap 8 mmol/L (8-16); Aspartate Amino Transferase 26 U/L (17-59); Bilirubin,Total 0.5 mg/dL (0.2-1.3); Blood Urea Nitrogen 18 mg/dL (9-20); Calcium 8.4 mg/dL (8.4-10.2); Carbon Dioxide 25 mmol/L (22-30); Chloride 104 mmol/L (98-107); Estimated Glomerular Filt Rate > 60; Glucose 157 mg/dL (65-110); INR 1.4; Prothrombin Time 16.5 Seconds (11.1-14.7); Sodium 137 mmol/L (137-145)
[2022-09-01 06:48] LABS: Partial Thromboplastin Time 41.2 SECONDS (22.3-36.8)
--- NOTE | 2022-09-01 07:43 | ED.GIBLEED ---
HPI - GI Bleed General Chief complaint: GI Bleed Stated complaint: BLOOD IN STOOL Time Seen by Provider: 09/01/22 07:02 Source: EMS, RN notes reviewed and old records reviewed Mode of arrival: EMS Limitations: dementia History of Present Illness HPI Narrative: This is an 86 year old male who presents from alf for evaluation of bloody stool. EMS reports patient had bloody tarry stool starting at 330 am this morning. He is on aspirin and plavix. Patient is oriented to person only. He does not know where is currently located or why he is here. He denies abdominal pain, nausea or vomiting. Related Data Home Medications Medication Instructions Recorded Confirmed acetaminophen 500 mg tablet 500 mg PO QPM 09/29/19 09/01/22 (Tylenol Extra Strength) albuterol sulfate 90 mcg/actuation 2 puff inhalation Q4-6H PRN Dyspnea 09/29/19 09/01/22 aerosol inhaler (ProAir HFA) budesonide-formoterol HFA 160 2 puff inhalation Q12H 09/29/19 09/01/22 mcg-4.5 mcg/actuation aerosol inhaler (Symbicort) cholecalciferol (vitamin D3) 25 5,000 unit PO DAILY 09/29/19 09/01/22 mcg (1,000 unit) capsule clopidogrel 75 mg tablet 75 mg PO DAILY 09/29/19 09/01/22 nitroglycerin 0.4 mg sublingual 0.4 mg sublingual Q5M PRN Chest 09/29/19 09/01/22 tablet (Nitrostat) Pain omega-3 acid ethyl esters 1 gram 2 cap PO BID 09/29/19 09/01/22 capsule (Lovaza) rosuvastatin 40 mg tablet (Crestor) 40 mg PO DAILY 09/29/19 09/01/22 tiotropium bromide 18 mcg capsule 1 cap inhalation DAILY 09/29/19 09/01/22 with inhalation device (Spiriva with HandiHaler) vit C 250 mg-vit E 90 mg-zinc 40 2 tablet PO BID 09/29/19 09/01/22 mg-copper 1 [id number] capsule (PreserVision AREDS-2) ipratropium 0.5 mg-albuterol 3 mg 3 ml inhalation BID 03/19/22 09/01/22 (2.5 mg base)/3 mL nebulization soln magnesium oxide 400 mg PO DAILY 03/19/22 09/01/22 aspirin 81 mg tablet,delayed 81 mg PO DAILY 08/26/22 09/01/22 release ascorbic acid (vitamin C) 1,000 mg 1 g PO DAILY 09/01/22 09/01/22 tablet cyanocobalamin (vitamin B-12) 1,000 mcg PO DAILY 09/01/22 09/01/22 1,000 mcg tablet Allergies Allergy/AdvReac Type Severity Reaction Status Date / Time pneumococcal vaccine Allergy Unknown Hypersensit Verified 09/01/22 06:51 ivity Sulfa (Sulfonamide Allergy Unknown Unknown Verified 09/01/22 06:51 Antibiotics) Review of Systems Review of Systems: ROS unobtainable: Yes unobtainable due to medical condition PMFSH Past Medical History Medical History Anemia, unspecified Callus of foot COPD (chronic obstructive pulmonary disease) Deficient knowledge of leg surgery 2 stents in lt leg HLD (hyperlipidemia) HTN (hypertension) Hypogonadism in male Left knee DJD Pain in left knee Primary osteoarthritis of left knee Primary osteoarthritis, right ankle and foot Prostate cancer Right knee DJD Weakness of left lower extremity Surgical History Surgical History H/O heart artery stent H/O prostatectomy History of ankle surgery History of back surgery History of cystoscopy History of neck surgery Status post implantation of artificial urinary sphincter removed, washout and urethral repair Family History Family History Father Cerebrovascular accident Heart attack Alcoholism Hypertension Depression Heart disease Mother Aneurysm Other Family history of arthritis Social History Social History Social History: caffeine-coffee daily Smoking packs per day: 1 Smoking cigarettes per day: 20.0 Years smoked: 30 Smoking pack-years: 30.00 Smoking status: Former smoker Tobacco type: cigarettes Second hand tobacco smoke exposure: No Additional smoking assessment comments: 1ppd for 30 years stopped 20 years
[2022-09-01 10:47] LABS: Hematocrit 41.2 % (42.0-52.0); Hemoglobin 13.7 g/dL (14.0-18.0)
[2022-09-01 11:03] LABS: Influenza A QL RT-PCR Negative (Negative); Influenza B QL RT-PCR Negative (Negative); SARS-CoV-2 RNA PCR Negative
--- NOTE | 2022-09-01 12:10 | ADMGEN ---
This patient, Anival Jennings, was admitted to [facility] Surg Room 330-01. Patient/family oriented to hospital policies and general routines including ID bracelet, bed and alarms, visiting hours, pain management, procedures, bathroom and other care routines, personal items, smoking policy, room service/diet, and visiting hours. Information on how to activate the Rapid Response Team has been discussed. Patient/Family are encouraged to report perceived risks to care and to ask questions if they do not understand what they are told or what they should do.
--- NOTE | 2022-09-01 15:03 | WPDGICN ---
Assessment and Plan Assessment and plan (1) Gastrointestinal bleeding: Code(s): K92.2 - Gastrointestinal hemorrhage, unspecified Status: Acute Assessment and Plan: the bleeding began about 3:00 a.m.. He has had no bleeding since this morning after admission. He had been on aspirin and Plavix these will be held. Endoscopy and colonoscopy will be scheduled for Thursday. I discussed with the patient and in particular with his the the prep the procedures and the risks. I explained he will get laxatives tomorrow and be on a clear liquid diet tomorrow. (2) Cough: Code(s): R05.9 - Cough, unspecified Status: Acute Assessment and Plan: He often has a cough towards the end of a meal. It is possible this is reflux related. If so appropriate measures will be taken. He has not been on a PPI at least not in the recent past as far as I can tell by review of the records. (3) Coronary artery disease: Code(s): I25.10 - Atherosclerotic heart disease of [place] coronary artery without angina pectoris Status: Acute Assessment and Plan: He has had stents placed in is on aspirin and Plavix. These will be held for now. (4) Urinary retention: Code(s): R33.9 - Retention of urine, unspecified Status: Acute Assessment and Plan: He just was discharged after treatment for a urethral stricture. (5) Dysphagia: Code(s): R13.10 - Dysphagia, unspecified Status: Acute Assessment and Plan: He has this intermittently. We will investigate this with endoscopy. I explained that he might need esophageal dilatation. He has had previous investigation with modified barium swallow. GI Consult Note Consult date/time: 09/01/22 15:03 HPI: Anival Jennings is a 86 year old male Was brought to emergency room this morning from her the nursing facility where he had just been admitted 2 days ago, because he began passing bloody stools during the night. The blood was not describes as dark or bright. The patient's who to is at bedside states that she was not aware of the bleeding until she went to visit him at the nursing facility today and saw that his bed was empty. He did in fact just get discharged 2 days ago after being hospitalized with urinary retention. He has apparently never had gastrointestinal bleeding in the past. He denies weight loss abdominal pain, nausea or vomiting. He states that he sometimes has difficulty swallowing. His added that he at times seems to choke after he has finished eating and he may cough. he apparently had EGD to investigate this about 6 or 7 years ago and was found have erosive esophagitis. his mentioned that he had what sounds like a modified barium swallow that was inconclusive for any definite problem. He takes aspirin and Plavix but no other anticoagulants. He has not been on NSAIDs regularly. I saw colonoscopy from about 5 years ago for screening that was unremarkable. Review of Systems Review of Systems: All systems reviewed & are unremarkable except as noted in HPI and below PMFSH Past Medical History Medical History Anemia, unspecified Callus of foot COPD (chronic obstructive pulmonary disease) Deficient knowledge of leg surgery 2 stents in lt leg HLD (hyperlipidemia) HTN (hypertension) Hypogonadism in male Left knee DJD Pain in left knee Primary osteoarthritis of left knee Primary osteoarthritis, right ankle and foot Prostate cancer Right knee DJD Weakness of left lower extremity Surgical History Surgical History H/O heart artery stent H/O prostatectomy History of ankle surgery History of back surgery History of cystoscopy History of neck surgery Status post implantation of artificial urinary sphincter removed, washout and urethral repair Family History Family History (Review
[2022-09-01 16:15] LABS: Hematocrit 40.7 % (42.0-52.0); Hemoglobin 13.2 g/dL (14.0-18.0)
[2022-09-01] MEDS: SODIUM CHLORIDE 0.9% IV 1,000 ML 125 ML IV CONT (17:14)
--- NOTE | 2022-09-01 19:00 | PM.IMHP ---
H&P: HPI History of Present Illness Date/Time: 09/01/22 19:00 Chief Complaint: Bloody stools. Narrative: This is a pleasant 86-year-old male with dementia, hypertension, hyperlipidemia, COPD, and peripheral vascular disease on dual antiplatelet therapy who presented to the emergency department via EMS from [facility] for evaluation of bloody stools. He is not the best historian due to underlying dimension as such some of the following history is supplemented via a review of his electronic medical records as well as history obtained from his . At about 03:30 he reportedly passed a dark and tarry stool and he has had several such episodes since arrival to the ED. The patient does not really remember that happening and he has no complaints at the time my evaluation. He specifically denies epigastric and abdominal pain, bloating, belching, nausea, and vomiting. Vital signs and hemoglobin were stable on arrival to the ED. He is being admitted in this setting for close monitoring and GI consultation. Review of Systems Review of Systems: Twelve systems were reviewed and are negative except for as per HPI. Accuracy is questionable given his dementia. He has a history of urinary retention and has an indwelling Chiang catheter at this time. Denies concerns for aspiration though endorses occasional cough and dysphagia. [facility] Past Medical History Medical History (Updated 09/01/22 @ 22:01 by Alem Calabrese PA-C) Chronic anemia Chronic obstructive pulmonary disease Coronary artery disease Hyperlipidemia Hypertension Hypogonadism in male Peripheral vascular disease Primary osteoarthritis of left knee Primary osteoarthritis, right ankle and foot Prostate cancer Right knee DJD Surgical History Surgical History (Updated 09/01/22 @ 22:01 by Alem Calabrese PA-C) History of ankle surgery History of coronary artery stent placement History of cystoscopy History of prostatectomy History of spinal surgery Cervical and lumbar fusion. History of vascular surgery Lower extremity stents. Status post implantation of artificial urinary sphincter removed, washout and urethral repair Family History Family History Father Cerebrovascular accident Heart attack Alcoholism Hypertension Depression Heart disease Mother Aneurysm Other Family history of arthritis Social History Social History (Updated 09/01/22 @ 22:01 by Alem Calabrese PA-C) Social History: Surrogate medical decision maker: Lita Jennings, spouse. Code status: Full code. Smoking packs per day: 1 Smoking cigarettes per day: 20.0 Years smoked: 30 Smoking pack-years: 30.00 Smoking status: Former smoker Tobacco type: cigarettes Second hand tobacco smoke exposure: No Additional smoking assessment comments: 1ppd for 30 years stopped 20 years ago Alcohol intake: current Drinks per week: 3 Substance use: never Substance use type: does not use Lack of Transportation: No Lack of Food: Never True Current Housing: I Have Housing Concerned About Future Housing: No Difficulty Paying Gas/Electric Bills: No Difficulty Paying for Meds: No Currently Unemployed: No Education: Master's Degree or Higher Difficulty w/ Childcare or Family Care: No Additional living arrangements comments: Currently in [facility]. 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 Spiritual care concerns: No Meds Home Medications and Allergies Home Medications Medication Instructions Recorded Confirmed Type acetaminophen 500 mg tablet 500 mg PO QPM 09/29/19 09/01/22 History (Tylenol Extra Strength) albuterol sulfate 90 mcg/actuation 2 puff inhalation Q4-6H PRN Dyspnea 09/29/19 09/01/22 History aerosol inhaler (ProAir HFA) budesonide-formoterol HFA 160 2 puff inhalation Q12H 09/29/19 09/01/22 Histo
[2022-09-01 22:52] LABS: Hematocrit 38.1 % (42.0-52.0); Hemoglobin 12.4 g/dL (14.0-18.0)
[2022-09-01] MEDS: PANTOPRAZOLE SODIUM IV 40 MG VIAL IV PUSH (23:35)
[2022-09-02] MEDS: SODIUM CHLORIDE 0.9% IV 1,000 ML 125 ML IV CONT ×3 (03:12→21:05)
[2022-09-02 04:50] VITALS: BP 109/89; PULSE 76; RESP 16; TEMP 36.8; O2SAT 96
[2022-09-02 07:33] LABS: Alanine Aminotransferase 15 U/L (6-50); Albumin Level 3.6 g/dL (3.5-5.1); Alkaline Phosphatase 55 U/L (38-126); Anion Gap 7 mmol/L (8-16); Aspartate Amino Transferase 21 U/L (17-59); Bilirubin,Total 0.4 mg/dL (0.2-1.3); Blood Urea Nitrogen 16 mg/dL (9-20); Calcium 7.8 mg/dL (8.4-10.2); Carbon Dioxide 24 mmol/L (22-30); Chloride 101 mmol/L (98-107); Estimated CRCL calculation 70 ml/min; Estimated Glomerular Filt Rate > 60; Glucose 119 mg/dL (65-110); Potassium 3.4 mmol/L (3.4-5.0); Sodium 132 mmol/L (137-145)
[2022-09-02 07:37] LABS: Basophils Absolute Auto 0.1 K/mm3 (0.0-0.1); Basophils Percent Auto 0.5 % (0.2-1.2); Eosinophils Absolute Auto 0.2 K/mm3 (0-0.3); Eosinophils Percent Auto 1.8 % (0-4.4); Hematocrit 35.7 % (42.0-52.0); Hemoglobin 11.4 g/dL (14.0-18.0); Immature Granulocyte Absolute 0.05 K/mm3 (0.00-0.031); Immature Granulocyte Percent A 0.5 % (0-0.5); Lymphocytes Absolute Auto 1.74 K/mm3 (0.9-3.2); Lymphocytes Percent Auto 17.5 % (18.3-44.2); Mean Corpuscular HGB Conc 31.9 g/dl (32-36); Mean Corpuscular Volume 90.8 fl (80-100); Monocytes Absolute Auto 0.8 K/mm3 (0.1-0.6); Monocytes Percent Auto 8.4 % (2.6-8.5); Neutrophils Absolute Auto 7.1 K/mm3 (1.3-6.7); Neutrophils Percent Auto 71.3 % (45.5-73.1); Platelet Count Result 256 k/mm3 (150-375); Red Blood Count 3.93 M/mm3 (4.6-6.20); Red Cell Distribution Width 12.7 % (11.5-14.5)
[2022-09-02 08:15] VITALS: PULSE 77; RESP 16; O2SAT 93
[2022-09-02] MEDS: IPRATROPIUM BR 0.02% INH SOLN 0.5 MG/2.5 ML VIAL INHALATION ×2 (08:17→21:27)
[2022-09-02] MEDS: FLUTICASONE/SALMETEROL 115-21 MCG INHALER 1 PUFF 2 PUFF INHALATION ×2 (08:18→21:29)
[2022-09-02] MEDS: UMECLIDINIUM BROMIDE 62.5 MCG ELLIPTA 1 PUFF INHALATION (08:18)
[2022-09-02] MEDS: ALBUTEROL SULFATE NEB 2.5 MG/3 ML INH INHALATION ×2 (08:18→21:27)
[2022-09-02 08:23] VITALS: PULSE 74; RESP 16; O2SAT 93
[2022-09-02] MEDS: ROSUVASTATIN 10 MG TABLET 40 MG PO (09:03)
[2022-09-02] MEDS: OPTI-GEN TAB 2 TABLET PO ×2 (09:03→17:29)
[2022-09-02] MEDS: PANTOPRAZOLE SODIUM IV 40 MG VIAL IV PUSH ×2 (09:03→21:01)
[2022-09-02] MEDS: SERTRALINE HCL 50 MG TABLET 100 MG PO (09:03)
[2022-09-02] MEDS: BISACODYL 5 MG TABLET EC 10 MG PO ×3 (11:35→21:00)
--- NOTE | 2022-09-02 11:40 | PM.IMPN ---
Progress Note: A&P Assessment and Plan (1) Gastrointestinal bleeding: Code(s): K92.2 - Gastrointestinal hemorrhage, unspecified Status: Acute Assessment and Plan: Monitor hemoglobin, PPI b.i.d., appreciate GI consult EGD and colonoscopy scheduled for tomorrow (2) Dysphagia: Code(s): R13.10 - Dysphagia, unspecified Status: Acute Assessment and Plan: As above, clear liquid diet, appreciate GI consult (3) Urinary retention: Code(s): R33.9 - Retention of urine, unspecified Status: Acute Assessment and Plan: Recently discharged due to urinary retention secondary to urethral stricture, Chiang placed by Urology, he is to follow up with them outpatient for further care (4) Peripheral vascular disease: Code(s): I73.9 - Peripheral vascular disease, unspecified Status: Acute Assessment and Plan: Hold aspirin and Plavix for now, monitor hemoglobin, restart when GI says it is okay (5) Coronary artery disease: Code(s): I25.10 - Atherosclerotic heart disease of [place] coronary artery without angina pectoris Status: Acute Assessment and Plan: Continue statin, aspirin and Plavix on hold (6) Chronic obstructive pulmonary disease: Code(s): J44.9 - Chronic obstructive pulmonary disease, unspecified Status: Acute Assessment and Plan: Stable, continue home meds (7) Chronic anemia: Code(s): D64.9 - Anemia, unspecified Status: Acute Assessment and Plan: Stable Plan DVT prophylaxis with SCDs GI prophylaxis with PPI Code status full code Subjective Date/time seen: 09/02/22 11:40 Interval history: No overnight events noted. No chest pain or shortness of breath. No nausea, vomiting or diarrhea. No fevers or chills. Review of Systems Review of Systems: 12 point review of systems was assessed and was negative except as noted in the HPI Exam Narrative: General: No acute distress, alert and oriented per baseline HEENT: Atraumatic, normocephalic, mucous membranes moist CV: Regular rate and rhythm, S1, S2 Lungs: Clear to auscultation bilaterally, no rales or crackles noted, no wheezes, good air entry Abdomen: Soft, nontender, nondistended Extremities: Normal to inspection Skin: No rashes noted, no lesions or wounds seen Psych: Euthymic, normal affect Objective Data Vital Signs Vital Signs: Vital Signs - 24 hr 01/02/23 15:00 09/01/22 22:21 09/01/22 21:12 Temperature 96.6 F L 98.0 F Pulse Rate 88 82 Respiratory Rate 18 16 Blood Pressure 101/81 132/65 Pulse Oximetry 95 94 Oxygen Delivery Room Air 09/02/22 04:50 09/02/22 08:15 09/02/22 08:15 Temperature 98.2 F Pulse Rate 76 77 Respiratory Rate 16 16 Blood Pressure 109/89 Pulse Oximetry 96 93 Oxygen Delivery Room Air 09/02/22 08:23 09/02/22 08:23 09/02/22 08:00 Temperature Pulse Rate 74 Respiratory Rate 16 Blood Pressure Pulse Oximetry 93 Oxygen Delivery Room Air Intake/Output Intake/Output: Intake & Output 08/30/22 08/31/22 09/01/22 09/02/22 23:59 23:59 23:59 23:59 Intake Total 660 2240 Output Total 600 Balance 660 1640 Meds/Results Medications: Active Medications Generic Name Dose Route Start Last Admin Trade Name Freq PRN Reason Stop Dose Admin Albuterol 2 puff 09/01/22 22:08 Albuterol Sulfate (*Sp) Aerosol 1 Puff INHALATION Q4-6H PRN Dyspnea Albuterol 2.5 mg 09/01/22 22:15 09/02/22 08:18 Albuterol Sulfate Neb 2.5 Mg/3 Ml Inh INHALATION 2.5 mg Q12HRT MANUEL Administration Bisacodyl 10 mg 09/02/22 12:00 09/02/22 11:35 Bisacodyl 5 Mg Tablet Ec PO 09/02/22 21:01 10 mg 1200,1500,2100 MANUEL Administration Sodium Chloride 1,000 mls @ 125 mls/hr 09/01/22 09:50 09/02/22 11:37 Normal Saline Iv IV CONT 125 mls/hr .Q8H MANUEL Administration Ipratropium [place] 0.5 mg 09/01/22 22:15 09/02/22 08:17 Ipratropi
[2022-09-02 15:09] VITALS: BP 145/79; PULSE 75; RESP 16; TEMP 36.4; O2SAT 96
[2022-09-02] MEDS: polyethylene glycoL 3350 238 GM BOTTLE PO (15:50)
[2022-09-02 20:50] VITALS: BP 109/68; PULSE 83; RESP 16; TEMP 36.6; O2SAT 93
[2022-09-02 21:30] VITALS: PULSE 77; RESP 16; O2SAT 94
[2022-09-03] VITALS (12 sets, daily range): BP systolic 104–163; BP diastolic 52–82; PULSE 70–768; RESP 16–24; TEMP 36.3–37.1; O2SAT 92–100
[2022-09-03] MEDS: SODIUM CHLORIDE 0.9% IV 1,000 ML 125 ML IV CONT (05:01)
[2022-09-03] MEDS: PANTOPRAZOLE SODIUM IV 40 MG VIAL IV PUSH ×2 (09:07→21:05)
[2022-09-03] MEDS: OPTI-GEN TAB 2 TABLET PO ×2 (09:07→17:56)
[2022-09-03] MEDS: SERTRALINE HCL 50 MG TABLET 100 MG PO (09:07)
[2022-09-03] MEDS: ROSUVASTATIN 10 MG TABLET 40 MG PO (09:07)
[2022-09-03] MEDS: ALBUTEROL SULFATE NEB 2.5 MG/3 ML INH INHALATION ×2 (10:09→21:15)
[2022-09-03] MEDS: UMECLIDINIUM BROMIDE 62.5 MCG ELLIPTA 1 PUFF INHALATION (10:10)
[2022-09-03] MEDS: FLUTICASONE/SALMETEROL 115-21 MCG INHALER 1 PUFF 2 PUFF INHALATION ×2 (10:10→21:18)
--- NOTE | 2022-09-03 13:35 | WPDANESEPPF ---
Anes - Initial Pre Proc Eval Procedure: Operation Date: 09/03/22 14:15 Proposed Procedures p Esophagogastroduodenoscopy & Colonoscopy - Aurelio Napoles MD Date/Time: 09/03/22 13:35 Surgeon: Misty Jiménez DO Pre Op Diagnosis: Rectal Bleeding Patient Data Age: 86 Gender: M Height: 1.78 m Weight: 86.8 kg Last Vital Signs Temp 98.8 F 09/03/22 06:00 Pulse 77 09/03/22 10:11 Resp 16 09/03/22 10:07 BP 123/52 L 09/03/22 06:00 Pulse Ox 92 09/03/22 10:11 O2 Del Method Room Air 09/03/22 10:11 Allergies Allergy/AdvReac Type Severity Reaction Status Date / Time pneumococcal vaccine Allergy Unknown Hypersensit Verified 09/01/22 06:51 ivity Sulfa (Sulfonamide Allergy Unknown Unknown Verified 09/01/22 06:51 Antibiotics) Home Medications Medication Instructions Recorded Confirmed Type acetaminophen 500 mg tablet 500 mg PO QPM 09/29/19 09/01/22 History (Tylenol Extra Strength) albuterol sulfate 90 mcg/actuation 2 puff inhalation Q4-6H PRN Dyspnea 09/29/19 09/01/22 History aerosol inhaler (ProAir HFA) budesonide-formoterol HFA 160 2 puff inhalation Q12H 09/29/19 09/01/22 History mcg-4.5 mcg/actuation aerosol inhaler (Symbicort) cholecalciferol (vitamin D3) 25 5,000 unit PO DAILY 09/29/19 09/01/22 History mcg (1,000 unit) capsule clopidogrel 75 mg tablet 75 mg PO DAILY 09/29/19 09/01/22 History nitroglycerin 0.4 mg sublingual 0.4 mg sublingual Q5M PRN Chest 09/29/19 09/01/22 History tablet (Nitrostat) Pain omega-3 acid ethyl esters 1 gram 2 cap PO BID 09/29/19 09/01/22 History capsule (Lovaza) rosuvastatin 40 mg tablet (Crestor) 40 mg PO DAILY 09/29/19 09/01/22 History tiotropium bromide 18 mcg capsule 1 cap inhalation DAILY 09/29/19 09/01/22 History with inhalation device (Spiriva with HandiHaler) vit C 250 mg-vit E 90 mg-zinc 40 2 tablet PO BID 09/29/19 09/01/22 History mg-copper 1 [id number] capsule (PreserVision AREDS-2) ipratropium 0.5 mg-albuterol 3 mg 3 ml inhalation BID 03/19/22 09/01/22 History (2.5 mg base)/3 mL nebulization soln magnesium oxide 400 mg PO DAILY 03/19/22 09/01/22 History sertraline 100 mg tablet (Zoloft) 100 mg PO DAILY #90 tabs 07/21/22 09/01/22 Rx aspirin 81 mg tablet,delayed 81 mg PO DAILY 08/26/22 09/01/22 History release ascorbic acid (vitamin C) 1,000 mg 1 g PO DAILY 09/01/22 09/01/22 History tablet cyanocobalamin (vitamin B-12) 1,000 mcg PO DAILY 09/01/22 09/01/22 History 1,000 mcg tablet Patient hx anesthesia problems: none Family hx anesthesia problems: none Results Review: All pre-operative results and documents have been reviewed as part of the pre-operative evaluation. [facility] Past Medical History Medical History (Updated 09/01/22 @ 22:01 by Alem Calabrese PA-C) Chronic anemia Chronic obstructive pulmonary disease Coronary artery disease Hyperlipidemia Hypertension Hypogonadism in male Peripheral vascular disease Primary osteoarthritis of left knee Primary osteoarthritis, right ankle and foot Prostate cancer Right knee DJD Surgical History Surgical History (Updated 09/01/22 @ 22:01 by Alem Calabrese PA-C) History of ankle surgery History of coronary artery stent placement History of cystoscopy History of prostatectomy History of spinal surgery Cervical and lumbar fusion. History of vascular surgery Lower extremity stents. Status post implantation of artificial urinary sphincter removed, washout and urethral repair Family History Family History Father Cerebrovascular accident Heart attack Alcoholism Hypertension Depression Heart disease Mother Aneurysm Other Family history of arthritis Social History Social History (Updated 09/01/22 @ 22:01 by Alem Calabrese PA-C) Social History: Surrogate medical decision maker: Lita Jennings, spouse. Code status: Full code.
[2022-09-03] MEDS: LACTATED RINGERS 1,000 ML 150 ML IV CONT (13:44)
--- NOTE | 2022-09-03 13:44 | PC.NURSE ---
To GI Lab per LORELEI ware intact. Report given to SAE Neville.
--- NOTE | 2022-09-03 16:09 | PC.NURSE ---
Returned from GI Lab. Report received from SAE Teague.
--- NOTE | 2022-09-03 16:11 | PM.IMPN ---
Progress Note: A&P Assessment and Plan (1) Gastrointestinal bleeding: Code(s): K92.2 - Gastrointestinal hemorrhage, unspecified Status: Acute Assessment and Plan: Patient presents with evidence of GI bleed. EGD showing Jp lesions which are erosions or ulcers entering in the sac of the hiatal hernia. Biopsies taken. This may be the etiology of his GI bleed. Patient was unable to have colonoscopy because his stool was not clear. Monitor hemoglobin, PPI b.i.d., appreciate GI consult (2) Chronic anemia: Code(s): D64.9 - Anemia, unspecified Status: Acute Assessment and Plan: mild acute anemia related to the acute blood loss. Stable. Repeat H&H in the morning. (3) Dysphagia: Code(s): R13.10 - Dysphagia, unspecified Status: Acute Assessment and Plan: Patient has occasional cough and dysphagia noted on the H&P. Will proceed with speech therapy evaluation. (4) Urinary retention: Code(s): R33.9 - Retention of urine, unspecified Status: Acute Assessment and Plan: Recently discharged due to urinary retention secondary to urethral stricture. Patient had cystoscopy 08/28/22 which showed dense, long urethral stricture that will necessitate indwelling catheter for least 2 weeks. Chiang placed by Urology, he is to follow up with them outpatient for further care (5) Peripheral vascular disease: Code(s): I73.9 - Peripheral vascular disease, unspecified Status: Acute Assessment and Plan: Aspirin and Plavix On hold for now, monitor hemoglobin, restart when GI says it is okay (6) Coronary artery disease: Code(s): I25.10 - Atherosclerotic heart disease of [place] coronary artery without angina pectoris Status: Acute Assessment and Plan: Continue statin. Aspirin and Plavix on hold (7) Chronic obstructive pulmonary disease: Code(s): J44.9 - Chronic obstructive pulmonary disease, unspecified Status: Acute Assessment and Plan: Stable, continue home meds Plan DVT prophylaxis with SCDs GI prophylaxis with PPI Code status full code Discharge okay once arranged. Subjective Date/time seen: 09/03/22 16:11 Interval history: 86yo male with HTN, COPD, and CAD here for GI bleed. assuming care. Chart reviewed. Patient denies any chest pain shortness of breath. No nausea or vomiting. He has eaten since he has been back from his procedure. He is having diarrheal stool still. Exam Narrative: General: No acute distress, alert and oriented per baseline HEENT: Atraumatic, normocephalic, mucous membranes moist CV: Regular rate and rhythm with occasional extra beat, S1, S2 Lungs: Clear to auscultation anteriorly and in the flanks, no rales or crackles noted, no wheezes, good air entry Abdomen: Soft, nontender, distended and tympanitic. : Chiang secured with clear yellow urine in the bag Extremities: Normal to inspection Skin: No rashes noted, no lesions or wounds seen Psych: Euthymic, normal affect Objective Data Vital Signs Vital Signs: Vital Signs - 24 hr 09/02/22 20:50 09/02/22 21:30 09/02/22 21:30 Temperature 98 F Pulse Rate 83 77 Respiratory Rate 16 16 Blood Pressure 109/68 Pulse Oximetry 93 94 Oxygen Delivery Room Air Oxygen Flow Rate 09/03/22 06:00 09/03/22 10:07 09/03/22 10:11 Temperature 98.8 F Pulse Rate 73 77 77 Respiratory Rate 16 16 Blood Pressure 123/52 L Pulse Oximetry 94 92 Oxygen Delivery Room Air Oxygen Flow Rate 09/03/22 13:43 09/03/22 14:39 09/03/22 14:49 Temperature 97.4 F L Pulse Rate 76 70 71 Respiratory Rate 20 16 24 H Blood Pressure 141/79 H 104/64 119/71 Pulse Oximetry 94 99 100 Oxygen Delivery Room Air Nasal Cannula Nasal Cannula Oxygen Flow Rate 2 2 09/03/22 14:59 09/03/22 15:29 Temperature 97.5 F L Pulse Rate 76 75 Respiratory Rate 20 16 Blood Pressure 116/68 163/
[2022-09-03] MEDS: SODIUM CHLORIDE 0.9% IV 1,000 ML 70 ML IV CONT (17:58)
[2022-09-03] MEDS: IPRATROPIUM BR 0.02% INH SOLN 0.5 MG/2.5 ML VIAL INHALATION ×2 (21:15→21:35)
[2022-09-04] MEDS: SODIUM CHLORIDE 0.9% IV 1,000 ML 70 ML IV CONT (05:33)
[2022-09-04 05:56] VITALS: BP 132/58; PULSE 74; RESP 18; TEMP 36.4; O2SAT 93
[2022-09-04 06:50] LABS: Hematocrit 33.2 % (42.0-52.0); Hemoglobin 10.7 g/dL (14.0-18.0); Mean Corpuscular HGB Conc 32.2 g/dl (32-36); Mean Corpuscular Hemoglobin 28.4 pg (26-34); Mean Corpuscular Volume 88.1 fl (80-100); Mean Platelet Volume 9.6 fl (7.4-10.4); Platelet Count Result 260 k/mm3 (150-375); Red Blood Count 3.77 M/mm3 (4.6-6.20); Red Cell Distribution Width 12.9 % (11.5-14.5); White Blood Count 8.3 K/mm3 (4.5-10.0)
--- NOTE | 2022-09-04 07:18 | SUR.OPER ---
No colonoscopy performed due to poor prep per Dr. Napoles.
[2022-09-04] MEDS: UMECLIDINIUM BROMIDE 62.5 MCG ELLIPTA 1 PUFF INHALATION (08:10)
[2022-09-04] MEDS: ALBUTEROL SULFATE NEB 2.5 MG/3 ML INH INHALATION (08:11)
[2022-09-04] MEDS: IPRATROPIUM BR 0.02% INH SOLN 0.5 MG/2.5 ML VIAL INHALATION (08:11)
[2022-09-04] MEDS: FLUTICASONE/SALMETEROL 115-21 MCG INHALER 1 PUFF 2 PUFF INHALATION (08:11)
[2022-09-04 08:13] VITALS: PULSE 77; RESP 20; O2SAT 92
[2022-09-04 08:23] VITALS: PULSE 78; RESP 20
[2022-09-04] MEDS: ROSUVASTATIN 10 MG TABLET 40 MG PO (08:31)
[2022-09-04] MEDS: SERTRALINE HCL 50 MG TABLET 100 MG PO (08:31)
[2022-09-04] MEDS: OPTI-GEN TAB 2 TABLET PO ×2 (08:31→16:51)
[2022-09-04] MEDS: PANTOPRAZOLE SODIUM IV 40 MG VIAL IV PUSH (08:32)
--- NOTE | 2022-09-04 09:28 | WPDANESPN ---
Anes - Prog Note Post-Op Date/Time: 09/04/22 09:28 Cardiovascular status: normal Respiratory status: normal Airway patency: baseline Mental status: baseline Post-Op hydration status: normal Vital Signs: Last Vital Signs Temp 36.4 C L 09/04/22 05:56 Pulse 78 09/04/22 08:23 Resp 20 09/04/22 08:23 BP 132/58 L 09/04/22 05:56 Pulse Ox 92 09/04/22 08:13 O2 Del Method Room Air 09/04/22 08:13 O2 Flow Rate 2 09/03/22 14:49 Pain Score (VAS): 0/10 I/O: Intake & Output 09/03/22 09/04/22 09/04/22 23:59 07:59 15:59 Intake Total 1360 1300 Output Total 1050 Balance 1360 250 Laboratory Tests 09/04/22 06:13 09/02/22 06:33 09/04/22 06:13 WBC 8.3 RBC 3.77 L Hgb 10.7 L Hct 33.2 L MCV 88.1 MCH 28.4 MCHC 32.2 RDW 12.9 Plt Count 260 MPV 9.6 Post-procedural complaints: none Patient Feedback: Patient satisfied with anesthetic care.
--- NOTE | 2022-09-04 09:29 | WPDANESPN ---
Anes - Prog Note Post-Op Date/Time: 09/04/22 09:29 Cardiovascular status: normal Respiratory status: normal Airway patency: baseline Mental status: baseline Post-Op hydration status: normal Vital Signs: Last Vital Signs Temp 36.4 C L 09/04/22 05:56 Pulse 78 09/04/22 08:23 Resp 20 09/04/22 08:23 BP 132/58 L 09/04/22 05:56 Pulse Ox 92 09/04/22 08:13 O2 Del Method Room Air 09/04/22 08:13 O2 Flow Rate 2 09/03/22 14:49 Pain Score (VAS): 0/10 I/O: Intake & Output 09/03/22 09/04/22 09/04/22 23:59 07:59 15:59 Intake Total 1360 1300 Output Total 1050 Balance 1360 250 Laboratory Tests 09/04/22 06:13 09/02/22 06:33 09/04/22 06:13 WBC 8.3 RBC 3.77 L Hgb 10.7 L Hct 33.2 L MCV 88.1 MCH 28.4 MCHC 32.2 RDW 12.9 Plt Count 260 MPV 9.6 Post-procedural complaints: none Patient Feedback: Patient satisfied with anesthetic care.
[2022-09-04] MEDS: ACETAMINOPHEN 325 MG TABLET 650 MG PO ×2 (12:49→18:21)
[2022-09-04 13:34] VITALS: BP 106/82; PULSE 77; RESP 18; TEMP 36.7; O2SAT 95
[2022-09-04 15:05] LABS: EDCOVIDSCREEN Negative (Negative)
--- NOTE | 2022-09-04 16:26 | PCSTNOTE ---
Therapist attempted to evaluate patient however he was with another staff member at the time of attempt.
--- NOTE | 2022-09-04 16:38 | PM.DS ---
DS: Admitting Diagnosis Discharge Date 09/04/22 Admitting Diagnosis GI bleed DS: Discharge Diagnosis Discharge Diagnosis (1) Gastrointestinal bleeding: Code(s): K92.2 - Gastrointestinal hemorrhage, unspecified Status: Acute (2) Chronic anemia: Code(s): D64.9 - Anemia, unspecified Status: Acute (3) Dysphagia: Code(s): R13.10 - Dysphagia, unspecified Status: Acute (4) Urinary retention: Code(s): R33.9 - Retention of urine, unspecified Status: Acute (5) Peripheral vascular disease: Code(s): I73.9 - Peripheral vascular disease, unspecified Status: Acute (6) Coronary artery disease: Code(s): I25.10 - Atherosclerotic heart disease of [place] coronary artery without angina pectoris Status: Acute (7) Chronic obstructive pulmonary disease: Code(s): J44.9 - Chronic obstructive pulmonary disease, unspecified Status: Acute DS: Summary Hospital Course Reason for hospitalization: 86yo male with HTN, COPD, and CAD here for GI bleed. Please see H&P for details Hospital Course: Patient presents with evidence of GI bleed.? Hemoglobin was normal on admission but did drop to 10.7. Influenza and COVID swabs were negative. GI was consulted. EGD showing Jp lesions which are erosions or ulcers entering in the sac of the hiatal hernia.? Biopsies were taken.? This may be the etiology of his GI bleed.? Patient was unable to have colonoscopy because his stool was not clear. Hemoglobin remains stable. He overall did well was able be discharged back to the rehab facility on 09/04/2022. Status at Discharge Cognitive/behavioral status at discharge: Stable Time Spent with Patient Time attestation: Total time spent providing and/or coordinating discharge services: 34 minutes Time spent: Greater than 30 minutes Exam Narrative: He was complaining of right hand pain. no trauma. Has hx of carpal tunnel and feels like this at times. Dtr feels may be related to how he was laying during the EGD. No hx of gout. AF 98.1 106/82 77 18 95% ra Gen - NARD Chest - CTA bilaterally, nml RR CV - RRR S1/S2 Abd - Soft, NT/ND, Positive BS - Chiang secured draining clear yellow urine Ext - No pedal edema. 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 pain mostly in the right wrist on palpation. Slightly warm to touch. 2+ radial pulses. nml sensation. Psych - Nml mood and affect Skin - Warm and dry DS: Data Data Completed and Pending Pending studies at discharge: Pending at discharge 09/03/22 14:35 Surgical [PTH] Routine Labs on day of discharge: Labs from last 24 hours 09/04/22 09/04/22 14:46 06:13 WBC 8.3 RBC 3.77 L Hgb 10.7 L Hct 33.2 L MCV 88.1 MCH 28.4 MCHC 32.2 RDW 12.9 Plt Count 260 MPV 9.6 SARS-CoV-2 IgG/IgM Ag?Rapid Negative Discharge Plan Discharge Attending physician on discharge: Manuel Turner Consulting providers: Aurelio Napoles Discharging Clinician: Manuel Turner Anticipated Discharge Date/Time: 09/04/22 16:46 Patient Disposition: SNF Activity: as tolerated Diet: regular Discharge Instructions: Routine Chiang care. Change out Chiang monthly Take precautions to avoid falls. Rise slowly from a lying or sitting position. Pause before standing or walking. Okay to use right wrist carpal tunnel brace as needed. Avoid NSAIDs (ibuprofen, naproxen, Aleve). Tylenol is safe to take. Follow-up with the provider at the facility Follow-up with Dr Paul in 1-2 weeks. Please arrange for an appointment. Thank you for using [facility] for your health care needs. Stand Alone Forms: General Discharge Information Follow-up/Referrals: Baldo Paul MD [Physician] - Call for Appointment Levar Montero DO [Primary Care Provider] - Call for Appointment Discharge Medications: New pantoprazole [Protonix] 40 mg tablet,delayed release (/EC)
[2022-09-04 20:54] VITALS: BP 130/72; PULSE 75; RESP 16; TEMP 36.2; O2SAT 92
--- NOTE | 2022-09-18 06:38 | PC.NURSE ---
Gastric biopsy is negative. Dr. Johnny hayden.
== END 2022-09-04 21:01 | DRG 378 ==
LOC: ANHED 08:40 → ANH3MEDSUR 11:10
PROVIDERS: Emergency Medicine; Internal Medicine Gastroenterology; Admitting Provider Student in an Organized Health Care Education/Training Program; Emergency Provider General Practice; PCP Internal Medicine; Visit Provider Internal Medicine
PROC: 0DJ08ZZ Inspection of Upper Intestinal Tract, Via Natural or Artificial Opening Endoscopic (ICD-10-PCS; CPT 43235; principal; 2022-09-03 14:15)
DX: K25.4 Chronic or unspecified gastric ulcer with hemorrhage (principal); D62 Acute posthemorrhagic anemia; K31.89 Other diseases of stomach and duodenum; J44.9 Chronic obstructive pulmonary disease, unspecified; I10 Essential (primary) hypertension; I73.9 Peripheral vascular disease, unspecified; I25.10 Atherosclerotic heart disease of native coronary artery without angina pectoris; E78.5 Hyperlipidemia, unspecified; K44.9 Diaphragmatic hernia without obstruction or gangrene; M17.0 Bilateral primary osteoarthritis of knee; M19.071 Primary osteoarthritis, right ankle and foot; R13.10 Dysphagia, unspecified; R33.9 Retention of urine, unspecified; Z20.822 Contact with and (suspected) exposure to COVID-19; Z79.01 Long term (current) use of anticoagulants; Z79.82 Long term (current) use of aspirin; Z95.5 Presence of coronary angioplasty implant and graft; Z85.46 Personal history of malignant neoplasm of prostate; Z87.891 Personal history of nicotine dependence; H81.90 Unspecified disorder of vestibular function, unspecified ear
CPT/HCPCS: 36415; 80053; 83735; 85014; 85018; 85025; 85027; 85610; 85730; 86850; 86870; 86880; 86900; 86901; 86902; 86905; 86922; 87081; 87426; 87636; 88305; 94640; 96361; 96374; 96376; 97161; 97166; 99285; A9270; C9113; C9803; G0378; J2704; J7030; J7120

== ENCOUNTER 2022-10-01 11:59 | Outpatient (NON) | payer MEDICARE, SELFPAY ==
[2022-10-01 13:21] LABS: Basophils Absolute Auto 0.1 K/mm3 (0.0-0.1); Basophils Percent Auto 0.8 % (0.2-1.2); Eosinophils Absolute Auto 0.3 K/mm3 (0-0.3); Eosinophils Percent Auto 4.8 % (0-4.4); Hematocrit 41.4 % (42.0-52.0); Hemoglobin 12.9 g/dL (14.0-18.0); Immature Granulocyte Absolute 0.01 K/mm3 (0.00-0.031); Immature Granulocyte Percent A 0.2 % (0-0.5); Lymphocytes Percent Auto 27.9 % (18.3-44.2); Mean Corpuscular HGB Conc 31.2 g/dl (32-36); Mean Corpuscular Hemoglobin 27.6 pg (26-34); Mean Corpuscular Volume 88.5 fl (80-100); Mean Platelet Volume 10.9 fl (7.4-10.4); Monocytes Absolute Auto 0.5 K/mm3 (0.1-0.6); Monocytes Percent Auto 8.7 % (2.6-8.5); Neutrophils Absolute Auto 3.5 K/mm3 (1.3-6.7); Neutrophils Percent Auto 57.6 % (45.5-73.1); Platelet Count Result 185 k/mm3 (150-375); Red Blood Count 4.68 M/mm3 (4.6-6.20); Red Cell Distribution Width 13.9 % (11.5-14.5); White Blood Count 6.1 K/mm3 (4.5-10.0)
[2022-10-01 13:38] LABS: Alanine Aminotransferase 18 U/L (6-50); Albumin Level 4.4 g/dL (3.5-5.1); Alkaline Phosphatase 58 U/L (38-126); Anion Gap 6 mmol/L (8-16); Aspartate Amino Transferase 30 U/L (17-59); Bilirubin,Total 0.5 mg/dL (0.2-1.3); Blood Urea Nitrogen 13 mg/dL (9-20); Calcium 8.7 mg/dL (8.4-10.2); Carbon Dioxide 27 mmol/L (22-30); Chloride 101 mmol/L (98-107); Estimated Glomerular Filt Rate > 60; Glucose 108 mg/dL (65-110); Potassium 3.6 mmol/L (3.4-5.0); Sodium 134 mmol/L (137-145)
== END 2022-10-01 12:00 | disposition home or self-care (01) ==
PROVIDERS: PCP Internal Medicine; Visit Provider Nurse Practitioner
DX: D64.9 Anemia, unspecified (principal); I10 Essential (primary) hypertension
CPT/HCPCS: 80053; 85025

== ENCOUNTER 2022-11-25 16:16 | Observation (INO) | payer MEDICARE, SELFPAY ==
--- NOTE | ~2022-11-25 | CT_ITS ---
EXAMINATION: CT brain wo con INDICATION: Altered mental status COMPARISON: 09/08/2021 TECHNIQUE: Standard unenhanced head CT. The dose-length product (DLP) was 681.00 mGy-cm. The mA was a djusted according to patient size. Iterative reconstruction technique was employed. FINDINGS: There is no acute intraparenchymal hemorrhage. No evidence of mass lesion. No evidence of a cute infarction. There is moderate periventricular and subcortical hypodensity probably related to sm all vessel ischemic disease. There is moderate prominence of the sulci and ventricles related to cere bral atrophy. Intracranial calcified cerebral atherosclerosis is noted. There are no extra-axial zac ections. There is no mass effect or midline shift. Changes in the globes are likely from ocular lens surgery. There is a polyp or mucous retention cyst in the right maxillary sinus. IMPRESSION: 1. No acute intracranial abnormality. 2. Age related findings. Reviewed, dictated and finalized at location F.
--- NOTE | ~2022-11-25 | XR_ITS ---
EXAMINATION: XR chest 2V DATE: 11/25/2022 16:56 INDICATION: Weakness TECHNIQUE: Frontal and lateral views of the chest are obtained COMPARISON: 08/26/2022 FINDINGS: The lungs are free of acute opacities. There is chronic mild elevation of the right hemidia phragm and mild chronic atelectasis of the lung bases. No pleural effusion or pneumothorax. The cardi omediastinal silhouette is normal. There is mild thoracic spondylosis. IMPRESSION: 1. Mild atelectasis of the lung bases. Reviewed, dictated and finalized at location F.
--- NOTE | ~2022-11-25 | XR_ITS ---
EXAMINATION: XR chest 1V portable INDICATION: Shortness of breath TECHNIQUE: Portable AP chest at 1908 hours COMPARISON: 11/25/2022 FINDINGS: There is chronic elevation of the right hemidiaphragm. There is mild chronic atelectasis of the lung bases. The lungs are free of acute opacities. No pleural effusion or pneumothorax. The card iomediastinal silhouette is normal. IMPRESSION: 1. Mild chronic atelectasis of the lung bases. Reviewed, dictated and finalized at location F.
--- NOTE | ~2022-11-25 | XR_ITS ---
EXAMINATION: XR chest 1V portable INDICATION: Endotracheal tube insertion TECHNIQUE: Portable AP chest at 0915 hours COMPARISON: 1908 hours FINDINGS: An endotracheal tube is been inserted which ends approximately 1.4 cm above the alicia. The re is mild elevation of the right hemidiaphragm. Mild chronic atelectasis is noted in the lung bases. No pleural effusion or pneumothorax. IMPRESSION: 1. Endotracheal tube inserted ending approximately 1.4 cm above the alicia Reviewed, dictated and finalized at location F.
--- NOTE | 2022-11-25 16:25 | ECG_ITS ---
Measurements Intervals [place] Rate: 0 P: NC: 0 QRS: QRSD: 0 T: QT: 0 QTc: 0 Interpretive Statements SINUS RHYTHM ATRIAL PREMATURE COMPLEXES CONSIDER INFERIOR INFARCT, AGE INDETERMINATE BORDERLINE ST ABNORMALITY- ANTEROLATERAL LEADS BASELINE ARTIFACT- I, II, III, AVR, AVL, AVF, V1, V3 ABNORMAL ECG COMPARED TO ECG 08/26/2022 12:51:58 NO SIGNIFICANT CHANGES Electronically Signed On 11-25-2022 21:49:43 CDT by Artem Castillo D.O.
[2022-11-25 16:31] VITALS: BP 125/77; PULSE 93; RESP 18; TEMP 38.5; O2SAT 95
[2022-11-25 17:03] LABS: Basophils Absolute Auto 0.1 K/mm3 (0.0-0.1); Basophils Percent Auto 0.7 % (0.2-1.2); Eosinophils Percent Auto 0.3 % (0-4.4); Hematocrit 41.4 % (42.0-52.0); Hemoglobin 13.3 g/dL (14.0-18.0); Immature Granulocyte Absolute 0.01 K/mm3 (0.00-0.031); Immature Granulocyte Percent A 0.1 % (0-0.5); Lymphocytes Absolute Auto 1.01 K/mm3 (0.9-3.2); Lymphocytes Percent Auto 14.9 % (18.3-44.2); Mean Corpuscular HGB Conc 32.1 g/dl (32-36); Mean Corpuscular Hemoglobin 26.9 pg (26-34); Mean Corpuscular Volume 83.8 fl (80-100); Mean Platelet Volume 10.1 fl (7.4-10.4); Monocytes Absolute Auto 0.9 K/mm3 (0.1-0.6); Monocytes Percent Auto 13.3 % (2.6-8.5); Neutrophils Absolute Auto 4.8 K/mm3 (1.3-6.7); Neutrophils Percent Auto 70.7 % (45.5-73.1); Platelet Count Result 197 k/mm3 (150-375); Red Blood Count 4.94 M/mm3 (4.6-6.20); Red Cell Distribution Width 14.4 % (11.5-14.5); White Blood Count 6.8 K/mm3 (4.5-10.0)
[2022-11-25 17:13] LABS: Alanine Aminotransferase 20 U/L (6-50); Albumin Level 4.8 g/dL (3.5-5.1); Alkaline Phosphatase 73 U/L (38-126); Anion Gap 11 mmol/L (8-16); Aspartate Amino Transferase 35 U/L (17-59); Bilirubin,Total 0.6 mg/dL (0.2-1.3); Blood Urea Nitrogen 15 mg/dL (9-20); Calcium 8.7 mg/dL (8.4-10.2); Carbon Dioxide 24 mmol/L (22-30); Chloride 96 mmol/L (98-107); Estimated CRCL calculation 56 ml/min; Estimated Glomerular Filt Rate > 60; Glucose 135 mg/dL (65-110); Potassium 4.3 mmol/L (3.4-5.0); Sodium 131 mmol/L (137-145)
[2022-11-25 17:30] VITALS: BP 96/57; PULSE 83; RESP 19; O2SAT 94
--- NOTE | 2022-11-25 18:10 | ED.GENADULT ---
HPI - General Adult General Chief complaint: Weakness Stated complaint: weakness, covid + Time Seen by Provider: 11/25/22 16:53 History of Present Illness HPI narrative: 87-year-old male with history of COVID presented to the emergency department for evaluation of not feeling well. Patient was diagnosed with COVID a few days ago. Patient states he has had decreased p.o. intake. Patient is already requesting discharge to home. Patient was febrile at 101.3. Patient was unable to ambulate successfully due to generalized weakness. Patient does have history of COPD, coronary artery disease, generalized weakness, hypertension, cough, pneumonia, short-term memory loss. Related Data Home Medications Medication Instructions Recorded Confirmed acetaminophen 500 mg tablet 500 mg PO QPM PRN Pain 09/29/19 11/25/22 (Tylenol Extra Strength) albuterol sulfate 90 mcg/actuation 2 puff inhalation Q4-6H PRN Dyspnea 09/29/19 11/25/22 aerosol inhaler (ProAir HFA) budesonide-formoterol HFA 160 2 puff inhalation Q12H 09/29/19 11/25/22 mcg-4.5 mcg/actuation aerosol inhaler (Symbicort) cholecalciferol (vitamin D3) 25 5,000 unit PO DAILY 09/29/19 11/25/22 mcg (1,000 unit) capsule clopidogrel 75 mg tablet 75 mg PO DAILY 09/29/19 11/25/22 nitroglycerin 0.4 mg sublingual 0.4 mg sublingual Q5M PRN Chest 09/29/19 11/25/22 tablet (Nitrostat) Pain omega-3 acid ethyl esters 1 gram 2 cap PO BID 09/29/19 11/25/22 capsule (Lovaza) rosuvastatin 40 mg tablet (Crestor) 40 mg PO DAILY 09/29/19 11/25/22 tiotropium bromide 18 mcg capsule 1 cap inhalation DAILY 09/29/19 11/25/22 with inhalation device (Spiriva with HandiHaler) vit C 250 mg-vit E 90 mg-zinc 40 2 tablet PO BID 09/29/19 11/25/22 mg-copper 1 [id number] capsule (PreserVision AREDS-2) ipratropium 0.5 mg-albuterol 3 mg 3 ml inhalation BID 03/19/22 11/25/22 (2.5 mg base)/3 mL nebulization soln magnesium oxide 400 mg PO DAILY 03/19/22 11/25/22 aspirin 81 mg tablet,delayed 81 mg PO DAILY 08/26/22 11/25/22 release ascorbic acid (vitamin C) 1,000 mg 1 g PO DAILY 09/01/22 11/25/22 tablet cyanocobalamin (vitamin B-12) 1,000 mcg PO DAILY 09/01/22 11/25/22 1,000 mcg tablet (Vitamin B-12) metoprolol succinate 25 mg 25 mg PO DAILY 11/25/22 11/25/22 tablet,extended release 24 hr Allergies Allergy/AdvReac Type Severity Reaction Status Date / Time amoxicillin Allergy Unknown Unknown Verified 11/25/22 21:27 nitrofurantoin Allergy Unknown Unknown Verified 11/25/22 21:26 pneumococcal vaccine Allergy Unknown Hypersensit Verified 11/13/22 11:14 ivity Sulfa (Sulfonamide Allergy Unknown Unknown Verified 11/13/22 11:14 Antibiotics) Review of Systems Review of Systems: All systems reviewed & are unremarkable except as noted in HPI and below PMFSH Past Medical History Medical History Chronic anemia Chronic obstructive pulmonary disease Coronary artery disease Hyperlipidemia Hypertension Hypogonadism in male Peripheral vascular disease Primary osteoarthritis of left knee Primary osteoarthritis, right ankle and foot Prostate cancer Right knee DJD Surgical History Surgical History History of ankle surgery History of coronary artery stent placement History of cystoscopy History of prostatectomy History of spinal surgery Cervical and lumbar fusion. History of vascular surgery Lower extremity stents. Status post implantation of artificial urinary sphincter removed, washout and urethral repair Family History Family History Father Cerebrovascular accident Heart attack Alcoholism Hypertension Depression Heart disease Mother Aneurysm Other Family history of arthritis Social History Social History Soci
--- NOTE | 2022-11-25 18:22 | PC.NURSE ---
attempted ambulation, pt unable to stand at bedside. Dr. Laura notified
[2022-11-25 18:30] VITALS: BP 112/67; PULSE 80; RESP 19; O2SAT 95
[2022-11-25 19:35] LABS: Influenza A QL RT-PCR Negative (Negative); Influenza B QL RT-PCR Negative (Negative); RSV RNA, RT-PCR Negative (Negative); SARS-CoV-2 RNA PCR Positive
[2022-11-25 20:34] VITALS: BP 124/76; PULSE 69; RESP 16; O2SAT 97
--- NOTE | 2022-11-25 21:10 | ADMGEN ---
This patient, Anival Jennings, was admitted to Medical Room 340-01. Patient/family oriented to hospital policies and general routines including ID bracelet, bed and alarms, visiting hours, pain management, procedures, bathroom and other care routines, personal items, smoking policy, room service/diet, and visiting hours. Information on how to activate the Rapid Response Team has been discussed. Patient/Family are encouraged to report perceived risks to care and to ask questions if they do not understand what they are told or what they should do.
[2022-11-25 21:17] VITALS: BMI 23.6
[2022-11-25 21:19] VITALS: BP 124/76; PULSE 97; RESP 14; TEMP 38.3; O2SAT 97
[2022-11-25 21:57] VITALS: PULSE 97; RESP 14; O2SAT 97
--- NOTE | 2022-11-25 22:11 | PM.IMHP ---
H&P: HPI History of Present Illness Date/Time: 11/25/22 22:11 Chief Complaint: Weakness and fever Narrative: 87-year-old male with history of COVID presented to the emergency department for evaluation of not feeling well.? Patient was brought in by his son due to generalized weakness. Patient was diagnosed with COVID about a week ago but he says he was not placed on any medication. He denies any coughing, chest pain, nausea, vomiting, diarrhea or dysuria.? He says he is able to ambulate at home with a walker but is feeling weak though he denies any actual falls. Patient states he has had decreased p.o. intake.??On arrival to the ER patient was febrile at 101.3.? Patient was unable to ambulate successfully due to generalized weakness.? Patient does have history of COPD, coronary artery disease, generalized weakness, hypertension, cough, pneumonia, short-term memory loss. Review of Systems Review of Systems: no weight loss no vision changes, no eye discharge no throat pain, no hoarseness, no lymphadenopathy no chest pain, no palpitations no coughing, no wheezing no abdominal pain, no diarrhea, no nausea, no vomiting no dysuria, no vaginal discharge no leg swelling, no edema no suicidal or homicidal ideation PMFSH Past Medical History Medical History Chronic anemia Chronic obstructive pulmonary disease Coronary artery disease Hyperlipidemia Hypertension Hypogonadism in male Peripheral vascular disease Primary osteoarthritis of left knee Primary osteoarthritis, right ankle and foot Prostate cancer Right knee DJD Surgical History Surgical History History of ankle surgery History of coronary artery stent placement History of cystoscopy History of prostatectomy History of spinal surgery Cervical and lumbar fusion. History of vascular surgery Lower extremity stents. Status post implantation of artificial urinary sphincter removed, washout and urethral repair Family History Family History Father Cerebrovascular accident Heart attack Alcoholism Hypertension Depression Heart disease Mother Aneurysm Other Family history of arthritis Social History Social History Social History: Surrogate medical decision maker: Lita Jennings, spouse. Code status: Full code. Smoking packs per day: 1 Smoking cigarettes per day: 20.0 Years smoked: 30 Smoking pack-years: 30.00 Smoking status: Former smoker Tobacco type: cigarettes Second hand tobacco smoke exposure: No Additional smoking assessment comments: 1ppd for 30 years stopped 20 years ago Alcohol intake: current Drinks per week: 3 Substance use: never Substance use type: does not use Lack of Transportation: No Lack of Food: Never True Current Housing: I Have Housing Concerned About Future Housing: No Difficulty Paying Gas/Electric Bills: No Difficulty Paying for Meds: No Currently Unemployed: No Education: Master's Degree or Higher Difficulty w/ Childcare or Family Care: No Additional living arrangements comments: Currently in [facility]. 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 Spiritual care concerns: No Meds Home Medications and Allergies Home Medications Medication Instructions Recorded Confirmed Type acetaminophen 500 mg tablet 500 mg PO QPM PRN Pain 09/29/19 11/25/22 History (Tylenol Extra Strength) albuterol sulfate 90 mcg/actuation 2 puff inhalation Q4-6H PRN Dyspnea 09/29/19 11/25/22 History aerosol inhaler (ProAir HFA) budesonide-formoterol HFA 160 2 puff inhalation Q12H 09/29/19 11/25/22 History mcg-4.5 mcg/actuation aerosol inhaler (Symbicort) cholecalciferol (vitamin D3) 25 5,000 un
[2022-11-26] VITALS (8 sets, daily range): BP systolic 121–150; BP diastolic 70–74; PULSE 69–83; RESP 14–20; TEMP 36.3–37.3; O2SAT 87–98
[2022-11-26 00:18] LABS: Basophils Percent Auto 0.7 % (0.2-1.2); Eosinophils Percent Auto 0.2 % (0-4.4); Hematocrit 41.7 % (42.0-52.0); Hemoglobin 13.4 g/dL (14.0-18.0); Immature Granulocyte Absolute 0.01 K/mm3 (0.00-0.031); Immature Granulocyte Percent A 0.2 % (0-0.5); Lymphocytes Absolute Auto 1.08 K/mm3 (0.9-3.2); Lymphocytes Percent Auto 25.1 % (18.3-44.2); Mean Corpuscular HGB Conc 32.1 g/dl (32-36); Mean Corpuscular Hemoglobin 27.6 pg (26-34); Mean Corpuscular Volume 85.8 fl (80-100); Mean Platelet Volume 9.8 fl (7.4-10.4); Monocytes Absolute Auto 0.7 K/mm3 (0.1-0.6); Monocytes Percent Auto 16.5 % (2.6-8.5); Neutrophils Absolute Auto 2.5 K/mm3 (1.3-6.7); Neutrophils Percent Auto 57.3 % (45.5-73.1); Platelet Count Result 163 k/mm3 (150-375); Red Blood Count 4.86 M/mm3 (4.6-6.20); Red Cell Distribution Width 14.3 % (11.5-14.5); White Blood Count 4.3 K/mm3 (4.5-10.0)
[2022-11-26 00:31] LABS: Anion Gap 10 mmol/L (8-16); Blood Urea Nitrogen 18 mg/dL (9-20); Calcium 9.1 mg/dL (8.4-10.2); Carbon Dioxide 28 mmol/L (22-30); Chloride 96 mmol/L (98-107); Estimated CRCL calculation 56 ml/min; Estimated Glomerular Filt Rate > 60; Glucose 110 mg/dL (65-110); Potassium 4.2 mmol/L (3.4-5.0); Sodium 134 mmol/L (137-145)
[2022-11-26 06:53] LABS: Appearance Urine Clear (Clear); Bacteria Urine None Seen /hpf; Bilirubin Urine Negative (Negative); Blood Urine Negative (Negative); Color Urine Yellow (Yellow); Glucose Urine UA Negative (Negative); Ketones Urine Negative (Negative); Leukocyte Esterase Ur Negative LEU/UL (Negative); Nitrate Urine Negative (Negative); Non Pathogenic Casts 0-2; Protein Urine Trace mg/dL (Negative); Specific Grav Ur 1.025 (1.001-1.035); Squamous Epithelial Cell Urine None seen /hpf (Few); Urobilinogen Urine 0.2 mg/dL (<2.0); WBC Urine 0-5 /hpf
[2022-11-26 08:23] LABS: Add Urine Microscopic? YES
[2022-11-26] MEDS: ASCORBIC ACID 500 MG TABLET 1000 MG PO (08:31)
[2022-11-26] MEDS: CYANOCOBALAMIN 1,000 MCG TABLET 1000 MCG PO (08:31)
[2022-11-26] MEDS: ENOXAPARIN 40 MG/0.4 ML SYRINGE SUB-Q (08:31)
--- NOTE | 2022-11-26 12:35 | PM.IMPN ---
Progress Note: A&P Assessment and Plan (1) Gastrointestinal bleeding: Code(s): K92.2 - Gastrointestinal hemorrhage, unspecified Status: Acute Assessment and Plan: Patient presents with evidence of GI bleed. EGD showing Jp lesions which are erosions or ulcers entering in the sac of the hiatal hernia. Biopsies taken. This may be the etiology of his GI bleed. Patient was unable to have colonoscopy because his stool was not clear. Monitor hemoglobin, PPI b.i.d., appreciate GI consult (2) Chronic anemia: Code(s): D64.9 - Anemia, unspecified Status: Acute Assessment and Plan: mild acute anemia related to the acute blood loss. Stable. (3) Dysphagia: Code(s): R13.10 - Dysphagia, unspecified Status: Acute Assessment and Plan: Patient has occasional cough and dysphagia noted on the H&P. Will proceed with speech therapy evaluation. (4) Urinary retention: Code(s): R33.9 - Retention of urine, unspecified Status: Acute Assessment and Plan: Recently discharged due to urinary retention secondary to urethral stricture. Patient had cystoscopy 08/28/22 which showed dense, long urethral stricture that will necessitate indwelling catheter for least 2 weeks. Chiang placed by Urology, he is to follow up with them outpatient for further care (5) Peripheral vascular disease: Code(s): I73.9 - Peripheral vascular disease, unspecified Status: Acute Assessment and Plan: Aspirin and Plavix On hold for now, monitor hemoglobin, restart when GI says it is okay (6) Coronary artery disease: Code(s): I25.10 - Atherosclerotic heart disease of [place] coronary artery without angina pectoris Status: Acute Assessment and Plan: Continue statin. Aspirin and Plavix on hold (7) Chronic obstructive pulmonary disease: Qualifiers: COPD type: unspecified COPD Qualified Code(s): J44.9 - Chronic obstructive pulmonary disease, unspecified Code(s): J44.9 - Chronic obstructive pulmonary disease, unspecified Status: Acute Assessment and Plan: Stable, continue home meds (8) COVID: Code(s): U07.1 - COVID-19 Status: Acute Assessment and Plan: Asymptomatic Plan DVT prophylaxis with SCDs GI prophylaxis with PPI Code status full code Discharge okay once arranged. Subjective Date/time seen: 11/26/22 12:35 No complaints at this time. Resting comfortably in bed Review of Systems Review of Systems: no weight loss no vision changes, no eye discharge no throat pain, no hoarseness, no lymphadenopathy no chest pain, no palpitations no coughing, no wheezing no abdominal pain, no diarrhea, no nausea, no vomiting no dysuria, no vaginal discharge no leg swelling, no edema no suicidal or homicidal ideation Exam Narrative: general- awake, alert, oriented to person and place but not to time, no distress, saturating well on room air, no tachypnea or coughing heent- shara, no nystagmus, no throat swelling, no dicharge, chronic left eyelid weakness chest-course breath sounds, no wheezes, rales, diffuse crackles heart- s1, s2, regular rate and rhythm, no gallops or murmurs abdomen- soft, bowel sounds heard, no rebound or tenderness extremities- no edema or cyanosis psych- no suicidal or homicidal ideation neuro- moves all extremities, no focal neurologic deficit, oriented to person and place but not to time, seems to have difficulty recalling events Objective Data Vital Signs Vital Signs: Vital Signs - 24 hr 11/25/22 16:31 11/25/22 17:30 11/25/22 18:30 Temperature 101.3 F H Pulse Rate 93 83 80 Respiratory Rate 18 19 19 Blood Pressure 125/77 96/57 L 112/67 Pulse Oximetry 95 94 95 Oxygen Delivery Room Air 11/25/22 20:34 11/25/22 21:19 11/25/22 21:57 Temperature 101.0 F H Pulse Rate 69 97 97 Respiratory Rate 16 14 14 Blood Pressure 124/76 124/76 Pulse
--- NOTE | 2022-11-26 12:51 | PM.EVENT ---
Event Note Event Note Event Note: Patient admitted after midnight. Admitted with recurrent UTI. Id consulted. Continue imipenem
[2022-11-26] MEDS: METOPROLOL SUCCINATE EXT REL 25 MG TABCR PO (13:59)
[2022-11-26] MEDS: SERTRALINE HCL 50 MG TABLET 100 MG PO (13:59)
[2022-11-26] MEDS: CLOPIDOGREL BISULFATE 75 MG TABLET PO (13:59)
[2022-11-26] MEDS: OPTI-GEN TAB 1 TABLET PO (17:24)
[2022-11-26] MEDS: IPRATROPIUM BR 0.02% INH SOLN 0.5 MG/2.5 ML VIAL INHALATION (20:08)
[2022-11-26] MEDS: ALBUTEROL SULFATE NEB 2.5 MG/3 ML INH INHALATION (20:08)
[2022-11-26] MEDS: FLUTICASONE/SALMETEROL 115-21 MCG INHALER 1 PUFF 2 PUFF INHALATION (20:50)
[2022-11-26] MEDS: PANTOPRAZOLE 40 MG TABLET PO (22:10)
[2022-11-27] VITALS (11 sets, daily range): BP systolic 130–142; BP diastolic 72–85; PULSE 76–98; RESP 14–20; TEMP 36.7–38.1; O2SAT 93–98; BMI 10.0
[2022-11-27] MEDS: ROSUVASTATIN 10 MG TABLET 40 MG PO (08:19)
[2022-11-27] MEDS: PANTOPRAZOLE 40 MG TABLET PO ×2 (08:20→20:38)
[2022-11-27] MEDS: SERTRALINE HCL 50 MG TABLET 100 MG PO (08:20)
[2022-11-27] MEDS: ENOXAPARIN 40 MG/0.4 ML SYRINGE SUB-Q (08:20)
[2022-11-27] MEDS: CHOLECALCIFEROL 1,000 UNITS TABLET 5000 UNITS PO (08:20)
[2022-11-27] MEDS: OPTI-GEN TAB 1 TABLET PO ×2 (08:20→18:20)
[2022-11-27] MEDS: ASCORBIC ACID 500 MG TABLET 1000 MG PO (08:20)
[2022-11-27] MEDS: CYANOCOBALAMIN 1,000 MCG TABLET 1000 MCG PO (08:20)
[2022-11-27] MEDS: MAGNESIUM OXIDE 400 MG TABLET PO (08:20)
[2022-11-27] MEDS: ASPIRIN 81 MG ENTERIC TABLET PO (08:21)
[2022-11-27] MEDS: METOPROLOL SUCCINATE EXT REL 25 MG TABCR PO (08:21)
[2022-11-27] MEDS: CLOPIDOGREL BISULFATE 75 MG TABLET PO (08:21)
[2022-11-27] MEDS: UMECLIDINIUM BROMIDE 62.5 MCG ELLIPTA 1 PUFF INHALATION (08:54)
[2022-11-27] MEDS: IPRATROPIUM BR 0.02% INH SOLN 0.5 MG/2.5 ML VIAL INHALATION ×2 (08:54→19:30)
[2022-11-27] MEDS: FLUTICASONE/SALMETEROL 115-21 MCG INHALER 1 PUFF 2 PUFF INHALATION ×2 (08:54→19:30)
[2022-11-27] MEDS: ALBUTEROL SULFATE NEB 2.5 MG/3 ML INH INHALATION ×2 (08:54→19:30)
--- NOTE | 2022-11-27 11:12 | PM.IMPN ---
Progress Note: A&P Assessment and Plan (1) COVID: Code(s): U07.1 - COVID-19 Status: Acute Assessment and Plan: Asymptomatic (2) Coronary artery disease: Code(s): I25.10 - Atherosclerotic heart disease of [place] coronary artery without angina pectoris Status: Acute Assessment and Plan: Continue statin, Aspirin and Plavix (3) Chronic obstructive pulmonary disease: Qualifiers: COPD type: unspecified COPD Qualified Code(s): J44.9 - Chronic obstructive pulmonary disease, unspecified Code(s): J44.9 - Chronic obstructive pulmonary disease, unspecified Status: Acute Assessment and Plan: Stable, continue home meds Plan Pending placement. wants to take him home but I think he would benefit from SNF Subjective Date/time seen: 11/27/22 11:12 Somewhat confused. Otherwise stable Review of Systems Review of Systems: no weight loss no vision changes, no eye discharge no throat pain, no hoarseness, no lymphadenopathy no chest pain, no palpitations no coughing, no wheezing no abdominal pain, no diarrhea, no nausea, no vomiting no dysuria, no vaginal discharge no leg swelling, no edema no suicidal or homicidal ideation Exam Narrative: general- awake, alert, oriented to person and place but not to time, no distress, saturating well on room air, no tachypnea or coughing heent- shara, no nystagmus, no throat swelling, no dicharge, chronic left eyelid weakness chest-course breath sounds, no wheezes, rales, diffuse crackles heart- s1, s2, regular rate and rhythm, no gallops or murmurs abdomen- soft, bowel sounds heard, no rebound or tenderness extremities- no edema or cyanosis psych- no suicidal or homicidal ideation neuro- moves all extremities, no focal neurologic deficit, oriented to person and place but not to time, seems to have difficulty recalling events Objective Data Vital Signs Vital Signs: Vital Signs - 24 hr 11/26/22 13:59 11/26/22 14:00 11/26/22 20:00 Temperature 97.4 F L Pulse Rate 69 83 83 Respiratory Rate 18 18 Blood Pressure 150/74 H Pulse Oximetry 94 94 Oxygen Delivery Room Air 11/26/22 20:07 11/26/22 20:17 11/26/22 20:18 Temperature 98.1 F Pulse Rate 78 78 78 Respiratory Rate 14 20 20 Blood Pressure 134/71 Pulse Oximetry 98 87 L Oxygen Delivery Room Air 11/26/22 20:25 11/27/22 06:00 11/27/22 08:21 Temperature 98.0 F Pulse Rate 80 76 76 Respiratory Rate 20 14 Blood Pressure 130/72 Pulse Oximetry 98 Oxygen Delivery 11/27/22 09:01 11/27/22 08:00 Temperature Pulse Rate 76 Respiratory Rate 20 Blood Pressure Pulse Oximetry Oxygen Delivery Room Air Intake/Output Intake/Output: Intake & Output 11/24/22 11/25/22 11/26/22 11/27/22 23:59 23:59 23:59 23:59 Intake Total 100 / 100 800 / 800 50 / 50 Output Total 850 / 850 200 / 200 Balance 100 / 100 -50 / -50 -150 / -150 Meds/Results Medications: Active Medications Generic Name Dose Route Start Last Admin Trade Name Freq PRN Reason Stop Dose Admin Al Hydrox/Mg Hydrox/Simethicone 30 ml 11/25/22 22:22 Mag Hydrox/Al Hydrox/Simeth 30 Ml Udc PO QID PRN Dyspepsia Albuterol 2 puff 11/26/22 13:06 Albuterol Sulfate (*Sp) Aerosol 1 Puff INHALATION Q4-6H PRN Dyspnea Albuterol 2.5 mg 11/26/22 20:00 11/27/22 08:54 Albuterol Sulfate Neb 2.5 Mg/3 Ml Inh INHALATION 2.5 mg Q12HRT MANUEL Administration Ascorbic Acid 1,000 mg 11/26/22 09:00 11/27/22 08:20 Ascorbic Acid 500 Mg Tablet PO 1,000 mg DAILY MANUEL Administration Aspirin 81 mg 11/27/22 09:00 11/27/22 08:21 Aspirin 81 Mg Enteric Tablet PO 81 mg DAILY MANUEL Administration Clopidogrel Bisulfate 75 mg 11/27/22 09:00 11/27/22 08:21 Clopidogrel Bisulfate 75 Mg Tablet PO 75 mg DAILY MANUEL Administration Cyanocobalamin 1,000 mcg 11/26/22 09:00 11/27/22 08:20 Cyanocobalamin 1,000 Mcg Tablet PO
[2022-11-27] MEDS: ACETAMINOPHEN 325 MG TABLET 650 MG PO (13:56)
[2022-11-28] VITALS (12 sets, daily range): BP systolic 126–140; BP diastolic 77–93; PULSE 71–135; RESP 16–32; TEMP 36.8–38.6; O2SAT 87–98; BMI 11.0
[2022-11-28] MEDS: FLUTICASONE/SALMETEROL 115-21 MCG INHALER 1 PUFF 2 PUFF INHALATION (09:46)
[2022-11-28] MEDS: UMECLIDINIUM BROMIDE 62.5 MCG ELLIPTA 1 PUFF INHALATION (09:46)
[2022-11-28] MEDS: IPRATROPIUM BR 0.02% INH SOLN 0.5 MG/2.5 ML VIAL INHALATION (09:46)
[2022-11-28] MEDS: ALBUTEROL SULFATE NEB 2.5 MG/3 ML INH INHALATION (09:46)
[2022-11-28] MEDS: SERTRALINE HCL 50 MG TABLET 100 MG PO (10:10)
[2022-11-28] MEDS: OPTI-GEN TAB 1 TABLET PO (10:10)
[2022-11-28] MEDS: CHOLECALCIFEROL 1,000 UNITS TABLET 5000 UNITS PO (10:10)
[2022-11-28] MEDS: MAGNESIUM OXIDE 400 MG TABLET PO (10:10)
[2022-11-28] MEDS: CYANOCOBALAMIN 1,000 MCG TABLET 1000 MCG PO (10:10)
[2022-11-28] MEDS: ASCORBIC ACID 500 MG TABLET 1000 MG PO (10:10)
[2022-11-28] MEDS: METOPROLOL SUCCINATE EXT REL 25 MG TABCR PO (10:11)
[2022-11-28] MEDS: ASPIRIN 81 MG ENTERIC TABLET PO (10:11)
[2022-11-28] MEDS: ROSUVASTATIN 10 MG TABLET 40 MG PO (10:11)
[2022-11-28] MEDS: CLOPIDOGREL BISULFATE 75 MG TABLET PO (10:11)
[2022-11-28] MEDS: PANTOPRAZOLE 40 MG TABLET PO (10:11)
[2022-11-28] MEDS: ENOXAPARIN 40 MG/0.4 ML SYRINGE SUB-Q (10:11)
--- NOTE | 2022-11-28 10:39 | PM.IMPN ---
Progress Note: A&P Assessment and Plan (1) COVID: Code(s): U07.1 - COVID-19 Status: Acute Assessment and Plan: Asymptomatic (2) Coronary artery disease: Code(s): I25.10 - Atherosclerotic heart disease of [place] coronary artery without angina pectoris Status: Acute Assessment and Plan: Continue statin, Aspirin and Plavix (3) Chronic obstructive pulmonary disease: Qualifiers: COPD type: unspecified COPD Qualified Code(s): J44.9 - Chronic obstructive pulmonary disease, unspecified Code(s): J44.9 - Chronic obstructive pulmonary disease, unspecified Status: Acute Assessment and Plan: Stable, continue home meds Plan Pending placement. Referrals sent Subjective Date/time seen: 11/28/22 10:39 No new complaints overnight. No change Review of Systems Review of Systems: no weight loss no vision changes, no eye discharge no throat pain, no hoarseness, no lymphadenopathy no chest pain, no palpitations no coughing, no wheezing no abdominal pain, no diarrhea, no nausea, no vomiting no dysuria, no vaginal discharge no leg swelling, no edema no suicidal or homicidal ideation Exam Narrative: general- awake, alert, oriented to person and place but not to time, no distress, saturating well on room air, no tachypnea or coughing heent- shara, no nystagmus, no throat swelling, no dicharge, chronic left eyelid weakness chest-course breath sounds, no wheezes, rales, diffuse crackles heart- s1, s2, regular rate and rhythm, no gallops or murmurs abdomen- soft, bowel sounds heard, no rebound or tenderness extremities- no edema or cyanosis psych- no suicidal or homicidal ideation neuro- moves all extremities, no focal neurologic deficit, oriented to person and place but not to time, seems to have difficulty recalling events Objective Data Vital Signs Vital Signs: Vital Signs - 24 hr 11/27/22 11:47 11/27/22 13:56 11/27/22 14:00 Temperature 100.6 F H 100.6 F H Pulse Rate 98 Respiratory Rate 20 Blood Pressure 142/85 H Pulse Oximetry 93 Oxygen Delivery Room Air 11/27/22 14:56 11/27/22 19:33 11/27/22 19:41 Temperature 99.8 F H Pulse Rate 82 82 Respiratory Rate 16 16 Blood Pressure Pulse Oximetry 96 Oxygen Delivery Room Air 11/27/22 20:00 11/27/22 22:00 11/28/22 06:00 Temperature 99.7 F H 98.3 F Pulse Rate 82 78 71 Respiratory Rate 16 18 18 Blood Pressure 139/76 138/77 Pulse Oximetry 96 98 98 Oxygen Delivery Room Air 11/28/22 09:40 11/28/22 09:48 11/28/22 09:58 Temperature Pulse Rate 79 81 Respiratory Rate 16 16 Blood Pressure Pulse Oximetry 96 Oxygen Delivery Room Air 11/28/22 10:11 Temperature Pulse Rate 81 Respiratory Rate Blood Pressure Pulse Oximetry Oxygen Delivery Intake/Output Intake/Output: Intake & Output 11/25/22 11/26/22 11/27/22 11/28/22 23:59 23:59 23:59 23:59 Intake Total 100 / 100 800 / 800 530 / 530 Output Total 850 / 850 300 / 300 650 / 650 Balance 100 / 100 -50 / -50 230 / 230 -650 / -650 Meds/Results Medications: Active Medications Generic Name Dose Route Start Last Admin Trade Name Fre PRN Reason Stop Dose Admin Acetaminophen 650 mg 11/27/22 13:31 11/27/22 13:56 Acetaminophen 325 Mg Tablet PO 650 mg Q6H PRN Administration Mild Pain (1-3) or Fever Al Hydrox/Mg Hydrox/Simethicone 30 ml 11/25/22 22:22 Mag Hydrox/Al Hydrox/Simeth 30 Ml Udc PO QID PRN Dyspepsia Albuterol 2 puff 11/26/22 13:06 Albuterol Sulfate (*Sp) Aerosol 1 Puff INHALATION Q4-6H PRN Dyspnea Albuterol 2.5 mg 11/26/22 20:00 11/28/22 09:46 Albuterol Sulfate Neb 2.5 Mg/3 Ml Inh INHALATION 2.5 mg Q12HRT MANUEL Administration Ascorbic Acid 1,000 mg 11/26/22 09:00 11/28/22 10:10 Ascorbic Acid 500 Mg Tablet PO 1,000 mg DAILY MANUEL Administration Aspirin 81 mg 11/27/22 09:00 11/28/22 10:11 Aspirin 81 Mg Ent
[2022-11-28] MEDS: SILVERGEL (ELTA) 45 ML 1 APPLIC TOPICAL (13:07)
--- NOTE | 2022-11-28 14:42 | PC.NURSE ---
spoke by phone to pt's and updated her on pt's day and condition, reviewed that pt is getting tylenol for elevated temp
--- NOTE | 2022-11-28 15:18 | PCSTNOTE ---
Bedside Swallow evaluation unable to be completed this date at RN request due to decreased responsiveness. Attempt Bedside Swallow Evaluation tomorrow.
[2022-11-28] MEDS: FUROSEMIDE INJ 40 MG/4 ML VIAL 20 MG IV PUSH (19:00)
--- NOTE | 2022-11-28 19:00 | PC.NURSE ---
1839 called to pt's room by DISTRICT OR DISTRICT OFFICE DIRECTOR following pt being cleaned up, pt is labored breathing and sounds coarse, O2 sat 86%, placed on NC, RT called to room to assist and assess, 1841 called, orders received, Letty Godwin on floor, updated on pt's condition, she came to room to assess pt, she gave new orders and spoke with RT, awaiting results to assess pt's need for higher level of care
[2022-11-28 19:09] LABS: Alveolar/Arterial O2 Gradient 603.4 mmHg; Base Excess ABG -5.2 mEq/l (+/-2.0); Fractional Inspired Oxygen 100 %; HCO3 ABG 16.6 mEq/l (22.0-26.0); Oxygen Content ABG 23.1 %vol (16.0-22.0); Oxygen Saturation ABG 96.9 % (95.0-100.0); Oxyhemoglobin 94.8 % THb (90.0-100.0); PO2 ABG 84.6 mmHg (80.0-100.0); PO2 FiO2 Ratio Arterial Blood 0.85 %; Total Hemoglobin 17.3 g/dL (12.0-18.0); pH ABG 7.441 (7.350-7.450)
[2022-11-28 19:13] LABS: Device NON-INVASIVE VENT; Non-Invasive Inspiratory Pressure 16 CMH2O; Non-Invasive Vent Rate 16 /MIN; Site Drawn LEFT BRACHIAL
[2022-11-28 19:14] LABS: Non-Invasive Expiratory Pressure 10 CMH2O
--- NOTE | 2022-11-28 19:20 | P.PNCROSS_ITS ---
Event Note Event Note Event Note: This is an 87-year-old male patient who was in the hospital with COVID. The pa anibal had been on room air any also has COPD. The patient has been afebrile today and was given IV Tylenol. I was called into the room as the patient was unresponsive. He has a rapid heart rate. The patient is nonresponsive. His O2 saturation was in the 80s and his respirations were 32. Patient's lungs sound wet with rhonchi. The patient was given IV Lasix. The patient was placed on a BiPAP machine 16/10 100% oxygen. His chest x-ray from 11/25/2022 was read as mild atelectasis of the lung bases. He also had a head CT on 11/25/2022 no acute intracranial abnormality. Age-related findings. The patient was also admitted for recurrent UTI and is on Cipro. ABGs were obtained. The patient was started on remdesivir and Decadron. Patient's ABGs pH 7.441 CO2 25.0 bicarb 16.6. O2 content 23.1. Plan to move the patient either to IMU our ICU.
[2022-11-28 19:42] LABS: Basophils Percent Auto 0.2 % (0.2-1.2); Hematocrit 50.5 % (42.0-52.0); Hemoglobin 15.6 g/dL (14.0-18.0); Immature Granulocyte Absolute 0.06 K/mm3 (0.00-0.031); Immature Granulocyte Percent A 0.5 % (0-0.5); Lymphocytes Absolute Auto 2.71 K/mm3 (0.9-3.2); Lymphocytes Percent Auto 21.9 % (18.3-44.2); Mean Corpuscular HGB Conc 30.9 g/dl (32-36); Mean Corpuscular Hemoglobin 27.1 pg (26-34); Mean Corpuscular Volume 87.8 fl (80-100); Mean Platelet Volume 10.5 fl (7.4-10.4); Monocytes Absolute Auto 1.2 K/mm3 (0.1-0.6); Monocytes Percent Auto 9.4 % (2.6-8.5); Neutrophils Absolute Auto 8.4 K/mm3 (1.3-6.7); Platelet Count Result 249 k/mm3 (150-375); Red Blood Count 5.75 M/mm3 (4.6-6.20); Red Cell Distribution Width 15.3 % (11.5-14.5); White Blood Count 12.4 K/mm3 (4.5-10.0)
[2022-11-28 19:52] LABS: INR 1.7; Prothrombin Time 19.3 Seconds (11.1-14.7)
[2022-11-28 19:58] LABS: Alanine Aminotransferase 36 U/L (6-50); Estimated CRCL calculation 15 ml/min; Estimated Glomerular Filt Rate 16
--- NOTE | 2022-11-28 20:22 | PC.NURSE ---
Lab notified this nurse hemolyzed blood sample. Ahmet, school laboratory technician, was the notified of need of redraw. Also informed Ahmet of patient transfer to U-214.
--- NOTE | 2022-11-28 20:32 | PC.NURSE ---
Pt transferred per bed to IMU room 214. Report called to Ivet QUEVEDO. Pt transferred with Bipap and Respitory therapy.
--- NOTE | 2022-11-28 21:15 | PC.NURSE ---
2100 notified per travel writer of first code blue with [facility]. While on phone with , patient lost heartbeat and second code blue began. updated of this and expressed desire for termination of resuscitative efforts with the explicit understanding that patient will likely soon. agreed with the plan to cease all resuscitative efforts and allow patient to . Mitzi Osorio RN was second nurse witness and spoke with to confirm termination of resuscitation. Patient at 2119.
--- NOTE | 2022-11-28 21:26 | P.CODEBLUE_ITS ---
Code Blue Note Code Blue Note Time Arrived at Code Blue: 20:40 Initial Rhythm on Arrival: PEA Airway Management: Pt intubated during resuscitation Chest Compressions: In process on arrival to bedside Result of Code Blue: Pt transferred to ICU Cardiac Rhythm Post Code: Sinus tachycardia rate 150 Code Blue Summary: The patient had been transferred from the medical floor to IMU by nurse practitioner. I was aware the patient was ill and we were discussing management of the patient when nursing staff called a code blue. The patient had just arrived to the IMU and nursing staff was unable to obtain vital signs. The patient's pulse was palpated and the patient was found to be in PEA The patient received 5 rounds of epinephrine, 1 calcium and 2 amps bicarb. It was suspected the patient likely had I metabolic acidosis as he had a jump in his serum creatinine with his labs on the morning of the . Head after resuscitation the patient is rhythm was sinus tachycardia with rates in the 150s. Blood pressure after code was 103 over 60. The patient was intubated during resuscitation by myself. The patient had at some 0.5 ET tube placed and measured 27 at the lip. The ET tube was confirmed with auscultation but at the patient had decreased breath sounds on the right. ET tube was pulled back 1 cm. The patient equal breath sounds. Patient was transferred to the ICU. I called the lab after the code the lab had rejected the patient's specimen for the BMP because the patient's potassium was above 5.1. The patient's potassium was 5.5 the clinical lab technologist told me reluctantly. They had already discarded the sample and could not tell me the rest of his electrolytes. They stated that they had discard the sample per lab policy but I was not contacted regarding this. As the patient was being positioned in the bed in the ICU the patient Adan down and went into asystole. A 2nd code was called. This will be documented in a 2nd code blue event note. 30 minute spent in resuscitation efforts and review of patient's chart prior to code
[2022-11-28 21:27] LABS: Anion Gap 25 mmol/L (8-16); Blood Urea Nitrogen 61 mg/dL (9-20); Calcium 13.9 mg/dL (8.4-10.2); Carbon Dioxide 21 mmol/L (22-30); Chloride 98 mmol/L (98-107); Estimated CRCL calculation 12 ml/min; Estimated Glomerular Filt Rate 12; Glucose 124 mg/dL (65-110); Potassium 7.7 mmol/L (3.4-5.0); Sodium 144 mmol/L (137-145)
--- NOTE | 2022-11-28 21:30 | PC.NURSE ---
Received pt from [facility] at 2030. Upon entry, pt noted to be breathing but unconscious on bipap. Unable to arouse. Dinamap applied, SPo2 noted to be 91%. Could not read a pulse or blood pressure, SpO2 now shows ? . Fingers cool to touch. Patient care transition coordinator to bedside with monitor. Pt noted to stop breathing, attempted to check a pulse as monitor applied, this RN could not feel a pulse while monitor shows asystole simultaneously. Surjit lloyd called, CPR started.
[2022-11-28 21:32] LABS: Troponin I 0.345 ng/mL (0.000-0.034)
--- NOTE | 2022-11-28 21:37 | WPDPROCEDUR ---
Procedures Intubation Intubation Date: 11/28/22 Intubation Time: 20:45 Consent: Performed emergently Laryngoscope: fiber optic video scope ET tube size: 7.5 Tube secured depth (cm): 26 Tube secured location: lips Tube placement confirmation: visualized tube passing through cords, equal breath sounds bilaterally, no breath sounds over epigastrium and confirmation by capnometry Patient tolerated procedure: other Additional comments: Patient was intubated during the course of a code. The patient was in PEA and unresponsive. Sedation was not needed. Immediately after intubation the patient had return of gastric contents up the ET tube after in total CO2 had already confirmed ET tube placement. Chest x-ray was personally reviewed and ET tube was 1-2 cm above the alicia. However by that point the patient's family had decided to withdrawal care and ET tube was not repositioned.
--- NOTE | 2022-11-28 21:43 | PDCODEBLUE ---
Code Blue Note Code Blue Note Time Arrived at Code Blue: 21:01 Initial Rhythm on Arrival: Asystole Airway Management: Pt intubated during resuscitation (Patient was intubated during prior cardiac arrest) Chest Compressions: In process on arrival to bedside Cardiac Rhythm Post Code: Sinus tachycardia Code Blue Summary: After the patient had been moved to the ICU the patient went into asystole. Of note I had called the lab between the 2 code event and lab had discarded the patient's prior blood sample because the potassium was greater than 5.1. When we eventually got repeat labs after return of perfusing rhythm after the 2nd code the patient's potassium was 7.1. I ultimately believe is the patient has acute kidney injury with symptomatic hyperkalemia that resulted in the patient's cardiac arrest. The patient was given another round of epinephrine, calcium and bicarb during resuscitation efforts and we had return of perfusing pressure pulse. Just prior to the pulse check the patient's family had decided to withdrawal care. But when we stopped resuscitation efforts the patient had a perfusing rhythm and pulse. The patient's blood pressure after 2nd resuscitation was 60s systolic. The patient was receiving a fluid bolus. But the family did not want a central line or pressors. The family was aware of the patient's critical condition and was coming up to see the patient. However before the family could arrive at bedside the patient went back into asystole and . The family stated that the patient would not want these invasive procedures. The patient time of was 21:20 on 11/28/2022. An additional 40 minutes was spent in critical care activities. Due to a high probability of clinically significant, life threatening deterioration, the patient required my highest level of preparedness to intervene emergently and I personally spent this critical care time directly and personally managing the patient. This critical care time included obtaining a history; examining the patient; pulse oximetry; ordering and review of studies; arranging urgent treatment with development of a management plan; evaluation of patient's response to treatment; frequent reassessment; and discussions with other providers. It was exclusive of separately billable procedures and treating other patients and teaching time. Please see Assessment and Plan section and the rest of the note for further information on patient assessment and treatment.
--- NOTE | 2022-11-29 09:17 | PM.DDS ---
Discharge Summary Date and Time Date of : 11/28/22 Time of : 21:20 Provider Pronounced By: Kurt Ashton RN and Mitzi Osorio RN Probable Cause of Probable Cause of : acute respiratory failure Summary Hospital Course: This is an 87-year-old male patient who was in the hospital with COVID.? The patient had been on room air any also has COPD.? The patient has been febrile yesterday and was given IV Tylenol.? blood cultures were obtained and he was started on iv zosyn. CXR was ordered.? later he was found to be nonresponsive.? His O2 saturation was in the 80s and his respirations were 32.? Patient's lungs sound wet with rhonchi.? The patient was given IV Lasix.? The patient was placed on a BiPAP machine 16/10 100% oxygen.?he was then transferred to ICU. After the patient had been moved to the ICU the patient went into asystole.? CPR was started. on repeat labs patient's potassium was 7.1.? The patient was given another round of epinephrine, calcium and bicarb during resuscitation efforts and we had return of perfusing pressure pulse.? Just prior to the pulse check the patient's family had decided to withdrawal care.? The patient time of was 21:20 on 11/28/2022. Additional Data Confirmation of as documented by pronouncing clinician: Pupillary Reflex, Palpable Pulses, Response to Stimuli, Heart Tones and Breath Sounds Name of Provider Notified: Dr Trinidad Time Provider Notified: 21:20 Provider Requests Autopsy: No Family Requests Autopsy: No Wharf Tender Head Notified: Yes Date [facility] Notified of : 11/28/22 Time [facility] Notified of : 22:37
== END 2022-11-28 23:41 | disposition expired ==
LOC: ANHED 16:59 → ANH3MED 20:52 → ANHIMU 11-28 20:34 → ANHICU 11-28 23:37
PROVIDERS: Nurse Practitioner; Admitting Provider Internal Medicine; Emergency Provider Emergency Medicine; PCP Internal Medicine; Visit Provider Hospitalist
DX: I46.9 Cardiac arrest, cause unspecified (principal); J96.00 Acute respiratory failure, unspecified whether with hypoxia or hypercapnia; U07.1 COVID-19; A49.01 Methicillin susceptible Staphylococcus aureus infection, unspecified site; J44.9 Chronic obstructive pulmonary disease, unspecified; R53.1 Weakness; Z87.01 Personal history of pneumonia (recurrent); R41.3 Other amnesia; D64.9 Anemia, unspecified; E29.1 Testicular hypofunction; I25.10 Atherosclerotic heart disease of native coronary artery without angina pectoris; N39.0 Urinary tract infection, site not specified; Z95.5 Presence of coronary angioplasty implant and graft; R41.82 Altered mental status, unspecified; I10 Essential (primary) hypertension; I73.9 Peripheral vascular disease, unspecified; R94.31 Abnormal electrocardiogram [ECG] [EKG]; F10.90 Alcohol use, unspecified, uncomplicated; Z98.62 Peripheral vascular angioplasty status; Z87.891 Personal history of nicotine dependence; Z79.1 Long term (current) use of non-steroidal anti-inflammatories (NSAID); Z79.51 Long term (current) use of inhaled steroids; Z79.02 Long term (current) use of antithrombotics/antiplatelets; Z79.82 Long term (current) use of aspirin; Z79.899 Other long term (current) drug therapy
CPT/HCPCS: 31500; 36415; 36600; 70450; 71045; 71046; 80048; 80053; 81001; 82565; 82805; 84460; 84484; 85025; 85610; 87040; 87070; 87077; 87205; 87637; 93005; 94002; 94640; 96365; 96372; 96375; 97110; 97162; 97166; 97530; 99285; A9270; C1751; G0378; J0131; J0171; J1650; J1940; J7030